=== PATIENT | female | born 1950 | race Caucasian/White ===

== ENCOUNTER → 2016-11-13 | Outpatient (REF) | payer MEDICARE, MEDICAID ==
[~2016-11-13] MED LIST: ACET500C PO; ALLE25CA OR; ARTHROTEC OR; BIOT50004 PO; BIOTINE PO; CETI10TA PO; CITRTAB14 PO; CLOBEX TOP; CRES20TA OR; HYDROCODONE PO; LIDO5DIS TOP; LOVE0.8I SC; METO25TA2 PO; MULTCAP PO; NAPR500T OR; NAPR500T81; OMEP20TA7 OR; PRIL20CA9 PO; TRAM50TA2 OR; TRAM50TA2 PO; VITA200015 PO; VITA500T OR; VITA500T3 PO; XARE20TA PO
[2016-11-13 16:42] LABS: BASO # 0.2 K/mm3 (0.0-0.2); BASO % 1.8 % (0.0-1.0); EOS # 0.1 K/mm3 (0.0-0.50); EOS % 0.9 % (0.0-3.0); LARGE UNSTAINED CELL # 0.2 K/mm3 (0.0-0.4); LARGE UNSTAINED CELL % 2.4 % (0.0-4.0); LYMPH # 2.6 K/mm3 (1.5-4.5); LYMPH % 28.4 % (24.0-44.0); MEAN CORPUSCULAR HEMOGLOBIN 31.7 pg (27.0-33.0); MEAN CORPUSCULAR HGB CONC 33.3 g/dl (32.0-36.5); MEAN CORPUSCULAR VOLUME 95.1 fl (80.0-96.0); MONO # 0.5 K/mm3 (0.0-0.8); MONO % 5.8 % (0.0-5.0); NEUTROPHILS # 5.2 K/mm3 (1.8-7.7); NEUTROPHILS % 60.8 % (36.0-66.0); PLATELET COUNT, AUTOMATED 247 k/mm3 (150-450); RED CELL DISTRIBUTION WIDTH 12.7 % (11.5-14.5); WHITE BLOOD COUNT 8.5 K/mm3 (4.0-10.0)
[2016-11-13 16:48] LABS: ALT/SGPT 21 U/L (12-78); CREATININE FOR GFR 0.77 MG/DL (0.55-1.02); GLOMERULAR FILTRATION RATE > 60.0 (>45)
[2016-11-13 18:30] LABS: ERYTHROCYTE SEDIMENTATION RATE 16 mm/hr (0-30)
== END ==
LOC: M LABDRWSH 16:06
PROVIDERS: ATTEND Internal Medicine Rheumatology
DX: M35.9 Systemic involvement of connective tissue, unspecified (principal); Z51.81 Encounter for therapeutic drug level monitoring; Z79.899 Other long term (current) drug therapy

== ENCOUNTER → 2016-11-13 | Outpatient (CLI) | payer MEDICARE, MEDICAID ==
[~2016-11-13] MED LIST changes: +PRIL20CA PO; -PRIL20CA9 PO
== END ==
LOC: M SFHCSACK 10:27
PROVIDERS: ATTEND Internal Medicine Rheumatology
DX: M35.9 Systemic involvement of connective tissue, unspecified (principal); Z79.899 Other long term (current) drug therapy

== ENCOUNTER → 2017-04-05 | Outpatient (CLI) | payer MEDICARE, MEDICAID ==
[~2017-04-05] MED LIST changes: -PRIL20CA PO; +PRIL20CA9 PO
--- NOTE | 2017-04-26 02:58 | ECWPNPC ---
PATIENT NAME: MARVIN JOHNSON : 1950 GENDER: FEMALE VISIT DATE: 04/05/2017 DISCHARGE DATE: 04/05/17 1043 VISIT LOCKED DATE TIME: PHYSICIAN: OTILIO STEPHENS RESOURCE: OTILIO STEPHENS REASON FOR APPOINTMENT 1. FOLLOWUP-HANDS/SHOULDERS HISTORY OF PRESENT ILLNESS HISTORY OF PRESENT ILLNESS: PAIN THE PATIENT DESCRIBES THE PAIN... FALL RISK SCREENING: SCREENING :NO FALLS IN THE PAST YEAR TODAY'S VISIT: NOTES: RATES PAIN TODAY 4/10. NOTES INCREASED LOCKING AND PAIN IN JOINTS OF THE HANDS - HAD RECENT INJECTIONS TO BOTH HANDS AT ORTHOPEDICS. NOTES SOME TENDERNESS AND STIFFNESS OVER THE NECK.. CURRENT MEDICATIONS TAKING ACETAMINOPHEN 500 MG CAPSULE 1 CAPSULE NEEDED ORALLY EVERY 6 HRS TAKING CITRACAL CALCIUM+D 600-40-500 MG-MG-UNIT TABLET EXTENDED RELEASE 24 HOUR 1 TABLET ORALLY TWICE A DAY TAKING VITAMIN D 2000 UNIT CAPSULE 1 CAP(S) ORALLY DAILY TAKING BIOTIN 62901 MCG CAPSULE 1 CAPSULE ORALLY ONCE A DAY TAKING ONE DAILY FOR WOMEN 50+ ADV - TABLET 1 TABLET ORALLY ONCE A DAY TAKING B-12 500 MG TABLET 1 TABLET ORALLY ONCE A DAY TAKING XARELTO 20 MG TABLET 1 TABLET ORALLY ONCE A DAY TAKING METOPROLOL SUCCINATE 25 MG TABLET EXTENDED RELEASE DIRECTED ORALLY DAILY TAKING ZYRTEC ALLERGY 10 MG TABLET 1 TABLET ORALLY ONCE A DAY NEEDED TAKING OMEPRAZOLE 20 MG CAPSULE DELAYED RELEASE 1 CAPSULE ORALLY ONCE A DAY TAKING TRAMADOL HCL 50 MG TABLET 1 TABLET NEEDED ORALLY EVERY 6 HRS PRN PAIN MDD=4 TAKING BLACK COHOSH 40 MG CAPSULE ORALLY NOT-TAKING CUSTOM DO NOT USE TRAMADOL 50 MG TABLET ONE TAB ORALLY EVERY 4-6 HOURS PRN PAIN NOT-TAKING MINOXIDIL FOR WOMEN 2 % SOLUTION 1 DROP TO AFFECTED AREA EXTERNALLY TWICE A DAY MEDICATION LIST REVIEWED AND RECONCILED WITH THE PATIENT PAST MEDICAL HISTORY RA (DR BONDS, PAIN CLINIC) DEGENERATIVE DISC DISEASE/ CHR NECK PAIN (ANGELO) HYPERLIPIDEMIA PSORIASIS, CONTROLLED MORBID OBESITY A FIB 2012 - DR FLYNN VIT D DEF B12 DEF H/O BRANDI DEP - AQUILES 10/19, FEV1 2.33. SCREENING COLONSCOPY PERFORMED 2014 ALLERGIES ENVIRONMENTAL REVIEW OF SYSTEMS CONSTITUTIONAL: ANY CHANGE IN YOUR MEDICAL CONDITION? NO . CHILLS NO . FEVER NO . INFECTION: DO YOU HAVE NEW INFECTIONS? NO . DO YOU HAVE HISTORY OF MRSA? NO . MUSCULOSKELETAL: ANY NEW PATTERNS OF PAIN OR NUMBNESS? NO . GASTROENTEROLOGY: ANY NEW CHANGE IN BOWEL CONTROL? NO . GENITOURINARY: ANY NEW CHANGE IN BLADDER CONTROL? NO . IS THERE A CHANCE YOU COULD BE ? NO . HEMATOLOGY/LYMPH: DO YOU TAKE ANY BLOOD THINNERS? (FOR EXAMPLE- COUMADIN, PLAVIX, AGGRENOX, PLATEL, PRADAXA, OR XARELTO) YES XARELTO . WHEN WAS YOUR LAST DOSE? DATE: TIME: . NEUROLOGY: HAVE YOU FALLEN IN THE PAST 6 MONTHS? NO . ANY NEW EXTREMITY NUMBNESS OR WEAKNESS? NO . CARDIOLOGY: DO YOU HAVE A PACEMAKER OR DEFIBRILLATOR? NO . RESPIRATORY: HAVE YOU BEEN SICK IN THE PAST WEEK? NO . FEVER NO . FLU LIKE SYMPTOMS? NO . COUGH NO . INTEGUMENTARY: DO YOU HAVE ANY RASHES OR OPEN SORES? NO . ALLERGIC/IMMUNO: ARE YOU ALLERGIC TO SHELLFISH OR IV DYE? NO . ANY NEW ALLERGIES? NO . PSYCHIATRIC: DO YOU HAVE THOUGHTS OF HURTING YOURSELF OR SOMEONE ELSE? NO . ARE YOU ABUSED, NEGLECTED, OR IN AN UNSAFE ENVIRONMENT? NO . ENDOCRINOLOGY: ARE YOU DIABETIC? NO . OTHER: DO YOU NEED ANY PRESCRIPTIONS? YES . IF YES, PLEASE LIST: ____TRAMADOL . ANY NEW PROBLEMS WITH YOUR MEDICATIONS? NO . WHEN DID YOU LAST EAT? ____ . WHEN DID YOU LAST DRINK? ____ . WHAT DID YOU LAST DRINK? ____ . NAME OF PERSON DRIVING YOU HOME? ____ . DO YOU HAVE ANY OTHER QUESTIONS OR CONCERNS NO . REVIEWED BY: PROVIDER: OTILIO CHUNG . VITAL SIGNS WT 185 LBS, HT 66 IN, BMI 29.86 INDEX, BP 149/75 MM HG, HR 64 /MIN, RR 16 /MIN, TEMP 97.7 F, OXYGEN SAT % 97%, SAFE IN ENV? (Y/N) YES, NA INITIALS SC 10:14, REVIEWED BY: WEN. EXAMINATION GENERAL EXAMINATION: PSYCHALERT , ORIENTED X 3 , APPROPRIATE MOOD AND AFFECT , SMILING AND TALKATIVE.. LUNGS:CLEAR TO AUSCULTATION BILATERALLY. HEART:HEART RATE IRREGULAR. MUSCULOSKELETAL:CONTINUES TO HAVE DIFFICULTY FULLY FLEXING THE FINGERS OF THE RIGHT HAND. NO SPECIFIC JOINT SWELLING TODAY. MILD TENDERNESS AND TRIGGER POINTS NOTED OVER THE CERVICAL SPINOUS PROCESSES ACROSS THE TRAPEZIUS MUSCLES BILATERALLY. . ASSESSMENTS RHEUMATOID ARTHRITIS, UNSPECIFIED - M06.9 (PRIMARY) CERVICAL FACET JOINT SYNDROME - M53.82 MYALGIA - M79.1 TREATMENT RHEUMATOID ARTHRITIS, UNSPECIFIED REFILL TRAMADOL HCL TABLET, 50 MG, 1 TABLET NEEDED, ORALLY, EVERY 6 HRS PRN PAIN MDD=4, 30 DAY(S), 120, REFILLS 5 NOTES: CONTINUE EXERCISES AND STRETCHES. CONTINUE CURRENT MEDS. CLINICAL NOTES: ISTOP REGISTRY REVIEWED AND DEMNOSTRATES COMPLLIANCE. BRINGS IN MEDICATIONS WHICH IS APPROPRIATE FOR WHAT WAS DISPENSED. RECENT URINE TOXICOLOGY REVIEWED. NO UNAUTHORIZED MEDICATIONS. NO ILLICIT SUBSTANCES AND PRESCRIBED MEDICATIONS WERE PRESENT. PROCEDURE CODES FA211 ESTABILISHED PATIENT [facility] CHARGE DISPOSITION & COMMUNICATION FOLLOW UP 6 MONTHS (REASON: JOINT PAIN) ELECTRONICALLY SIGNED BY ROGERIO CARTY ON 04/24/2017 AT 08:50 AM EDT DISCLAIMER : THIS IS A VISIT SUMMARY EXTRACTED FROM THE [employer] CHART. IT IS NOT A COPY OF THE [employer] PROGRESS NOTE. ELLIE
== END ==
LOC: M PAIN 10:00
PROVIDERS: ATTEND Nurse Practitioner Family
DX: M06.9 Rheumatoid arthritis, unspecified (principal); M53.82 Other specified dorsopathies, cervical region; M79.1 Myalgia; Z79.891 Long term (current) use of opiate analgesic; Z79.899 Other long term (current) drug therapy; J30.9 Allergic rhinitis, unspecified

== ENCOUNTER 2017-08-20 13:06 | Emergency (ER) | payer MEDICAID, MEDICARE ==
[~2017-08-20] VITALS: Ht 165.1 cm; Wt 81.8 kg
[2017-08-20] MEDS ORDERED: NS 1,000 ML IV ONE (14:00)
[2017-08-20] MEDS ORDERED: ONDANSETRON 4MG/2ML VIAL (J2405) IV ONE (14:00)
[2017-08-20 14:13] LABS: BASO # 0.1 10^3/uL (0.0-0.2); BASO % 0.5 % (0.0-1.0); EOS % 0.1 % (0.0-3.0); IMMATURE GRANULOCYTE % 0.3 % (0-0); LYMPH # 1.6 10^3/uL (1.5-4.5); LYMPH % 15.5 % (24.0-44.0); MEAN CORPUSCULAR HEMOGLOBIN 30.9 pg (27.0-33.0); MEAN CORPUSCULAR HGB CONC 32.7 g/dl (32.0-36.5); MEAN CORPUSCULAR VOLUME 94.5 fl (80.0-96.0); MONO # 0.5 10^3/uL (0.0-0.8); NEUTROPHILS % 78.6 % (36.0-66.0); PLATELET COUNT, AUTOMATED 255 10^3/uL (150-450); RED CELL DISTRIBUTION WIDTH 12.7 % (11.5-14.5); WHITE BLOOD COUNT 10.2 10^3/uL (4.0-10.0)
[2017-08-20 14:25] LABS: ANION GAP 9 MEQ/L (8-16); BLOOD UREA NITROGEN 8 MG/DL (7-18); CALCIUM LEVEL 9.1 MG/DL (8.8-10.2); CARBON DIOXIDE LEVEL 25 MEQ/L (21-32); CHLORIDE LEVEL 105 MEQ/L (98-107); GLOMERULAR FILTRATION RATE > 60.0 (>45); GLUCOSE, FASTING 108 MG/DL (80-110); MAGNESIUM LEVEL 1.9 MG/DL (1.8-2.4); POTASSIUM SERUM 4.2 MEQ/L (3.5-5.1); SODIUM LEVEL 139 MEQ/L (136-145)
[2017-08-20] MEDS ORDERED: ZOFR4TAB3 PO (16:18)
[2017-08-20 16:38] VITALS: BP 177/82
--- NOTE | 2017-08-20 19:15 | ECGEPIP ---
Stationary ECG Study [facility] - ED Test Date: 2017-08-20 Pat Name: MARVIN JOHNSON Department: Room: - Gender: F Firmware Developer: ALOK : 1950 Requested By: Yoseph Murrell Order Number: [id number] Reading MD: Yoseph Corea Measurements Intervals [place] Rate: 70 P: [place]: 0 QRS: 5 QRSD: 89 T: 5 QT: 385 QTc: 418 Interpretive Statements ATRIAL FIBRILLATION RHYTHM CHANGE COMPARED TO 08/05/13 Electronically Signed On 08-20-2017 19:14:46 EDT by Yoseph Corea
[2017-08-30] MEDS ORDERED: TRAM50TA2 PO (18:20)
[2017-08-30] MEDS ORDERED: VITMTA PO (18:20)
[2017-08-30] MEDS ORDERED: ONDA4TAB5 PO (18:20)
[2017-08-30] MEDS ORDERED: XARE20TA PO (18:20)
[2017-09-02] MEDS ORDERED: METO1TAB32 PO (12:59)
[2017-09-03] MEDS ORDERED: VITA10002 PO (10:25)
[2017-09-03] MEDS ORDERED: CALCTAB68 PO (10:25)
[2017-09-03] MEDS ORDERED: METO1TAB32 PO (10:25)
== END 2017-08-20 16:39 | disposition home or self-care (01) ==
LOC: M ED 13:06
DX: R55 Syncope and collapse (principal); E86.0 Dehydration; I48.91 Unspecified atrial fibrillation
CPT/HCPCS: 80048; 83735; 85025; 93005; 93041; 94760; 96361; 96374; 99284; J2405

== ENCOUNTER → 2017-09-24 | Outpatient (CLI) | payer MEDICARE, MEDICAID ==
[~2017-09-24] MED LIST changes: +CALCTAB68 PO; +METO1TAB32 PO; +ONDA4TAB5 PO; +VITA10002 PO; +VITMTA PO; +ZOFR4TAB3 PO
[2017-09-24 15:31] LABS: ALBUMIN 3.7 GM/DL (3.2-5.2); ALBUMIN/GLOBULIN RATIO 1.16 (1.00-1.93); ALKALINE PHOSPHATASE 89 U/L (45-117); ALT/SGPT 28 U/L (12-78); ANION GAP 6 MEQ/L (8-16); AST/SGOT 25 U/L (7-37); BILIRUBIN,TOTAL 0.7 MG/DL (0.2-1.0); BLOOD UREA NITROGEN 8 MG/DL (7-18); CALCIUM LEVEL 9.5 MG/DL (8.8-10.2); CARBON DIOXIDE LEVEL 30 MEQ/L (21-32); CHLORIDE LEVEL 105 MEQ/L (98-107); CHOLESTEROL LEVEL 225 MG/DL (<200); CREATININE FOR GFR 0.76 MG/DL (0.55-1.02); GLOMERULAR FILTRATION RATE > 60.0 (>45); GLUCOSE, FASTING 106 MG/DL (80-110); POTASSIUM SERUM 4.7 MEQ/L (3.5-5.1); SODIUM LEVEL 141 MEQ/L (136-145); TOTAL PROTEIN 6.9 GM/DL (6.4-8.2); TRIGLYCERIDES LEVEL 115 MG/DL (<150)
== END ==
LOC: M SFHCSACK 08:11
PROVIDERS: ATTEND Nurse Practitioner Family
DX: E78.4 Other hyperlipidemia (principal)

== ENCOUNTER → 2017-10-15 | Outpatient (CLI) | payer MEDICARE, MEDICAID | LOC: M PAIN 10:00 | DX: M06.9 Rheumatoid arthritis, unspecified (principal); M53.82 Other specified dorsopathies, cervical region; M79.1 Myalgia; E78.5 Hyperlipidemia, unspecified; I48.2 Chronic atrial fibrillation; Z79.891 Long term (current) use of opiate analgesic; Z79.899 Other long term (current) drug therapy; Z87.891 Personal history of nicotine dependence; J30.2 Other seasonal allergic rhinitis; Z98.84 Bariatric surgery status; Z95.0 Presence of cardiac pacemaker | CPT/HCPCS: G0463 ==

== ENCOUNTER → 2017-12-04 | Outpatient (CLI) | payer MEDICARE, MEDICAID | LOC: M WHC 10:14 | DX: Z12.31 Encounter for screening mammogram for malignant neoplasm of breast (principal); Z78.0 Asymptomatic menopausal state | CPT/HCPCS: 77067 ==

== ENCOUNTER → 2018-04-08 | Outpatient (CLI) | payer MEDICARE | LOC: M PAIN 09:00 | DX: M06.9 Rheumatoid arthritis, unspecified (principal); M53.82 Other specified dorsopathies, cervical region; M79.1 Myalgia; E11.9 Type 2 diabetes mellitus without complications; E78.5 Hyperlipidemia, unspecified; L40.9 Psoriasis, unspecified; I48.91 Unspecified atrial fibrillation; J30.89 Other allergic rhinitis; E66.9 Obesity, unspecified; Z68.30 Body mass index [BMI] 30.0-30.9, adult; Z79.01 Long term (current) use of anticoagulants; Z79.899 Other long term (current) drug therapy; Z95.0 Presence of cardiac pacemaker; Z87.891 Personal history of nicotine dependence; Z98.84 Bariatric surgery status | CPT/HCPCS: G0463 ==

== ENCOUNTER → 2018-09-20 | Outpatient (REF) | payer MEDICARE ==
[2018-09-20 15:27] LABS: HEMATOCRIT 38.9 % (36.0-47.0); HEMOGLOBIN 12.5 g/dl (12.0-15.5); MEAN CORPUSCULAR HEMOGLOBIN 29.9 pg (27.0-33.0); MEAN CORPUSCULAR HGB CONC 32.1 g/dl (32.0-36.5); MEAN CORPUSCULAR VOLUME 93.1 fl (80.0-96.0); PLATELET COUNT, AUTOMATED 317 10^3/uL (150-450); RED BLOOD COUNT 4.18 10^6/uL (4.00-5.40); RED CELL DISTRIBUTION WIDTH 12.8 % (11.5-14.5); WHITE BLOOD COUNT 6.2 10^3/uL (4.0-10.0)
[2018-09-20 15:33] LABS: ALBUMIN 3.6 GM/DL (3.2-5.2); ALBUMIN/GLOBULIN RATIO 1.16 (1.00-1.93); ALKALINE PHOSPHATASE 83 U/L (45-117); ALT/SGPT 18 U/L (12-78); ANION GAP 6 MEQ/L (8-16); AST/SGOT 16 U/L (7-37); BILIRUBIN,TOTAL 0.5 MG/DL (0.2-1.0); BLOOD UREA NITROGEN 7 MG/DL (7-18); CALCIUM LEVEL 8.8 MG/DL (8.8-10.2); CARBON DIOXIDE LEVEL 28 MEQ/L (21-32); CHLORIDE LEVEL 109 MEQ/L (98-107); CHOLESTEROL LEVEL 178 MG/DL (<200); CHOLESTEROL RISK RATIO 2.579 (<5); CREATININE FOR GFR 0.69 MG/DL (0.55-1.30); GLOMERULAR FILTRATION RATE > 60.0 (>45); GLUCOSE, FASTING 93 MG/DL (70-100); HDL CHOLESTEROL 69 MG/DL (>40); LDL CHOLESTEROL 88 MG/DL (<100); NON-HDL-C 109 MG/DL; POTASSIUM SERUM 4.5 MEQ/L (3.5-5.1); SODIUM LEVEL 143 MEQ/L (136-145); TOTAL PROTEIN 6.7 GM/DL (6.4-8.2); TRIGLYCERIDES LEVEL 107 MG/DL (<150)
[2018-09-20 15:36] LABS: TOTAL 25(OH) VITAMIN D 32.3 NG/ML (30.0-100.0); VITAMIN B12 LEVEL 394 PG/ML (247-911)
== END ==
LOC: M SFHCSACK 08:15
DX: I48.2 Chronic atrial fibrillation (principal); E78.49 Other hyperlipidemia; E55.9 Vitamin D deficiency, unspecified; Z98.84 Bariatric surgery status
CPT/HCPCS: 82607

== ENCOUNTER → 2018-10-03 | Outpatient (CLI) | payer MEDICARE | LOC: M PAIN 09:15 | DX: M06.9 Rheumatoid arthritis, unspecified (principal); G89.29 Other chronic pain; I48.91 Unspecified atrial fibrillation; E78.5 Hyperlipidemia, unspecified; L40.9 Psoriasis, unspecified; Z79.01 Long term (current) use of anticoagulants; Z79.899 Other long term (current) drug therapy; Z87.891 Personal history of nicotine dependence; Z95.0 Presence of cardiac pacemaker; Z98.84 Bariatric surgery status | CPT/HCPCS: G0463 ==

== ENCOUNTER → 2019-02-13 | Outpatient (CLI) | payer MEDICAID, MEDICARE ==
[~2019-02-13] MED LIST changes: +ZOFR4TAB14 PO; -ZOFR4TAB3 PO
--- NOTE | 2019-02-13 11:27 | REPMRS ---
Patient History The patient states she had a clinical breast exam in 02/2019. No known family history of cancer. Digital Woman Screen Mammo: February 13, 2019 - Exam #: [id number] Bilateral CC and MLO view(s) were taken. Technologist: Claudia Birmingham, Technologist Prior study comparison: December 04, 2017, digital woman screen mammo performed at [facility]. July 13, 2016, digital woman screen mammo performed at [facility]. June 14, 2015, digital woman screen mammo performed at [facility]. FINDINGS: There are scattered fibroglandular densities. A pacemaker power plant overlies the left axilla on the left MLO view. There has been no change in the appearance of the mammogram from the prior studies. There is a mild amount of scattered fibroglandular density which is fairly symmetric. There is no interval development of dominant mass, architectural distortion, or clustered microcalcification suggestive of malignancy. 3-D tomosynthesis shows no additional findings. Assessment: BI-RADS/ACR category 2 mammogram. Benign Findings. Recommendation Routine screening mammogram of both breasts in 1 year (for women over age 40). This patient's Lifetime Breast Cancer RIsk is estimated at 5.0 %. This mammogram was interpreted with the aid of an FDA-approved computer-aided dectection system. Electronically Signed By: David Garcia MD 02/13/19 [id number]
== END ==
LOC: M WHC 09:44
PROVIDERS: ATTEND Nurse Practitioner Women's Health
DX: Z01.419 Encounter for gynecological examination (general) (routine) without abnormal findings (principal); Z12.31 Encounter for screening mammogram for malignant neoplasm of breast; Z95.0 Presence of cardiac pacemaker
CPT/HCPCS: 77063; 77067; G0101

== ENCOUNTER → 2019-02-26 | Outpatient (CLI) | payer MEDICARE ==
--- NOTE | 2019-03-17 00:56 | ECWPNPC ---
PATIENT NAME: MARVIN JOHNSON : 1950 GENDER: FEMALE VISIT DATE: 02/26/2019 DISCHARGE DATE: 02/26/19 0959 VISIT LOCKED DATE TIME: PHYSICIAN: LAURIE CASE MD RESOURCE: LAURIE CASE MD REASON FOR APPOINTMENT 1. MULTI BODY PAIN HISTORY OF PRESENT ILLNESS HISTORY OF PRESENT ILLNESS: PAIN THE PATIENT DESCRIBES THE PAIN... 68 YEAR OLD MALE PATIENT WITH A HISTORY OF CHRONIC MULTIPLE BODY PAIN. THE PATIENT DESCRIBES THE PAIN SORE, BURNING, SHOOTING, AND CONTINUOUS WITH A PAIN SCORE OF 6-8/10 DEPENDING ON PHYSICAL ACTIVITY. THE PATIENT SAYS THE PAIN IS FELT ESPECIALLY IN HER HANDS AND OVER SEVERAL JOINTS IN HER BODY. THE PATIENT REPORTS SHE HAS A HISTORY OF RHEUMATOID ARTHRITIS. THE PATIENT SAYS SHE TAKES TRAMADOL TWO TIMES PER DAY TO AID WITH HER PAIN. PATIENT DENIES UNEXPLAINABLE WEIGHT LOSS, FEVER, CHILLS, NEW CHANGES ON HER URINARY OR BOWEL CONTROL. FALL RISK SCREENING: SCREENING :NO FALLS REPORTED IN THE LAST YEAR CURRENT MEDICATIONS TAKING OMEPRAZOLE 20 MG CAPSULE DELAYED RELEASE 1 CAPSULE ORALLY ONCE A DAY NEEDED, NOTES: OTC TAKING METOPROLOL SUCCINATE 25 MG TABLET EXTENDED RELEASE DIRECTED ORALLY DAILY TAKING XARELTO 20 MG TABLET 1 TABLET ORALLY ONCE A DAY TAKING TRAMADOL HCL 50 MG TABLET 1 TABLET NEEDED ORALLY EVERY 6 HRS PRN PAIN MDD=4 UNKNOWN SHINGRIX 50 MCG SUSPENSION RECONSTITUTED DIRECTED INTRAMUSCULAR ONCE, REPEAT 2-6 MONTHS, NOTES: NOT YET MEDICATION LIST REVIEWED AND RECONCILED WITH THE PATIENT PAST MEDICAL HISTORY RA (DR BONDS, PAIN CLINIC) DEGENERATIVE DISC DISEASE/ CHR NECK PAIN (WALKER) HYPERLIPIDEMIA PSORIASIS, CONTROLLED MORBID OBESITY VIT D DEF B12 DEF H/O BRANDI DEP - AQUILES 10/19, FEV1 2.33. SCREENING COLONSCOPY PERFORMED 2014 [employer] SINGLE CHAMBER PACEMAKER 09/01/17 ATRIAL FIB: DX 04/03/13, CARDIOVERSION 08/04/13, AFIB RETURNED 3 DAYS LATER. ON XARELTO PACEMAKER: BIOTRONIK SINGLE CHAMBER PACEMAKER IMPLANTED 08/2017 FOR SICK SINUS SYNDROME ECHO 2012: LVEF 60-65%, MILD LEFT VENTRICULAR HYPERTROPHY, MODERATE LEFT ATRIAL ENLARGEMENT, NORMAL PULMONARY ARTERY PRESSURE ECHO 08/2017: LVEF 65-70%, NO VALVULAR DISEASE, NORMAL CVP ALLERGIES ENVIRONMENTAL SURGICAL HISTORY SHOULDER SURGERY X 2 CARPAL TUNNEL RELEASE/CEE. D&C 1980S GASTRIC BYPASS 06/2013 PACEMAKER 09/01/17 COLONOSCOPY; REPEAT 10 YEARS 2014 FAMILY HISTORY FATHER: , CIRRHOSIS MOTHER: , HEART DISEASE, DM SIBLINGS: ALIVE, DM, KIDNEY CANCER 2 BROTHER(S) , 3 SISTER(S) - HEALTHY. BROTHER- HEART DISEASE\\\\NBROTHER -BLEEDING ULCER. SOCIAL HISTORY GENERAL: TOBACCO USE ARE YOU A:FORMER SMOKER HOW LONG HAS IT BEEN SINCE YOU LAST SMOKED?> 10 YEARS HIV / HEP-C SCREENING HIV TEST OFFERED TO PATIENT:YES DATE OFFERED:02/13/2019 TEST ACCEPTED:NO HEP-C TEST OFFERED TO PATIENT:YES DATE OFFERED:02/13/2019 REASON:PATIENT DECLINED TEST ACCEPTED:NO REASON:PATIENT DECLINED BROCHURE PROVIDED TO PATIENTNO OTHERS AT HOME: NONE. EDUCATION LEVEL OF EDUCATION:HIGH SCHOOL DIET: S/P GASTRIC BYPASS. LANGUAGE LANGUAGES SPOKEN:ESTONIAN DOMESTIC VIOLENCE DO YOU FEEL SAFE IN YOUR ENVIRONMENT?YES BMI CARE GOAL FOLLOW-UP ABOVE NORMAL BMI FOLLOW-UPGIVING ENCOURAGEMENT TO EXERCISE RECREATIONAL DRUG USE DRUG USE?NO EXERCISE: EXERCISES FIVE DAYS A WEEK AT [employer], [place], [place] [place]. LEARNING BARRIERS / SPECIAL NEEDS CHANGE FROM LAST VISIT?NO BARRIERS TO LEARNING?NO HEARING IMPAIRED?NO VISION IMPAIRED?YES COGNITIVELY IMPAIRED?NO :CORRECTIVE LENSES READINESS TO LEARN?YES LEARNING PREFERENCES?NO LEARNING CAPABILITIES PRESENT?YES EMOTIONAL BARRIERS?NO SPECIAL DEVICES?NO HEALTH AND SAFETY REPRESENTATIVE NEEDED?NO LUNG CANCER SCREENING SMOKING STATUS:FORMER SMOKER IS THE PATIENT BETWEEN THE AGE OF 57 AND 79?YES HAVE YOU QUIT SMOKING WITHIN THE PAST 15 YEARS?NO QUIT SMOKING 1985 PAIN CLINIC PFS, CLERGY, PUBLIC HEALTH REFERRALS HAS THE PATIENT BEEN EDUCATED REGARDING HIS/HER PLAN OF CARE?YES HAS THE PATIENT BEEN EDUCATED REGARDING PAIN, THE RISK FOR PAIN, THE IMPORTANCE OF EFFECTIVE PAIN MANAGEMENT, AND THE PAIN ASSESSMENT PROCESS?YES LATEX QUESTIONNAIRE LATEX ALLERGY : HAVE YOU EVER DEVELOPED ANY TYPE OF REACTION AFTER HANDLING LATEX PRODUCTS SUCH RUBBER GLOVES, CONDOMS, DIAPHRAGMS, BALLOONS, SOCKS, OR UNDERWEAR?NO LATEX ALLERGY : HAVE YOU EVER DEVELOPED ANY TYPE OF REACTION DURING OR AFTER DENTAL APPOINTMENT, VAGINAL/RECTAL EXAMINATION, SURGICAL PROCEDURE, OR ANY OTHER EXPOSURE?NO DATE ASKED : 02/13/2019 LATEX RISK : HAVE YOU EVER HAD ANY DIFFICULTY BREATHING OR HIVES AFTER EATING OR HANDLING ANY FRUITS, OR VEGETABLES; SUCH KIWI, BANANAS, STONE FRUITS, OR CHESTNUTSNO LATEX RISK : DO YOU HAVE A PREVIOUS PERSONAL HISTORY OF MORE THAN NINE SURGERIES, SPINA BIFIDA, OR REPEATED CATHERTIZATIONS? NO LATEX RISK : ARE YOU FREQUENTLY EXPOSED TO LATEX PRODUCTS IN YOUR OCCUPATION?NO CAFFEINE 2-5/DAY. ADVANCE DIRECTIVE ADVANCE DIRECTIVE DISCUSSED WITH PATIENT:YES OTILIO ARAUZ TAOIST TAOIST NO CHEONDOISM BELIEFS THAT WOULD IMPACT HEALTH CARE. MARITAL STATUS: SINGLE. ALCOHOL SCREENING DID YOU HAVE A DRINK CONTAINING ALCOHOL IN THE PAST YEAR?NO POINTS0 INTERPRETATIONNEGATIVE OCCUPATION: RETIRED. SEXUAL HX HAD SEX IN THE LAST 12 MONTHS (VAGINAL, ORAL, OR ANAL)?NO HAVE YOU EVER HAD AN STD?NO HOSPITALIZATION/MAJOR DIAGNOSTIC PROCEDURE SHOULDER SURGERY 07/12 [facility] GASTRIC SURGERY 06/2013 AFIB 08/30/17-09/02/17 PACEMAKER 09/03/17-09/04/17 REVIEW OF SYSTEMS REVIEWED BY: PROVIDER: LAURIE CASE MD . CONSTITUTIONAL: ANY CHANGE IN YOUR MEDICAL CONDITION? NO . CHILLS NO . FEVER NO . INFECTION: DO YOU HAVE NEW INFECTIONS? NO . DO YOU HAVE HISTORY OF MRSA? NO . MUSCULOSKELETAL: ANY NEW PATTERNS OF PAIN OR NUMBNESS? YES INCREASED NUMBNESS AND PAIN IN HANDS . GASTROENTEROLOGY: ANY NEW CHANGE IN BOWEL CONTROL? NO . GENITOURINARY: ANY NEW CHANGE IN BLADDER CONTROL? NO . IS THERE A CHANCE YOU COULD BE ? NO . HEMATOLOGY/LYMPH: DO YOU TAKE ANY BLOOD THINNERS? (FOR EXAMPLE- COUMADIN, PLAVIX, AGGRENOX, PLATEL, PRADAXA, OR XARELTO) YES . WHEN WAS YOUR LAST DOSE? DATE: TIME: . NEUROLOGY: HAVE YOU FALLEN IN THE PAST 12 MONTHS? NO . ANY NEW EXTREMITY NUMBNESS OR WEAKNESS? NO . CARDIOLOGY: DO YOU HAVE A PACEMAKER OR DEFIBRILLATOR? YES . RESPIRATORY: HAVE YOU BEEN SICK IN THE PAST WEEK? NO . FEVER NO . FLU LIKE SYMPTOMS? NO . COUGH NO . INTEGUMENTARY: DO YOU HAVE ANY RASHES OR OPEN SORES? NO . ALLERGIC/IMMUNO: ARE YOU ALLERGIC TO IV DYE? NO . ANY NEW ALLERGIES? NO . PSYCHIATRIC: DO YOU HAVE THOUGHTS OF HURTING YOURSELF OR SOMEONE ELSE? NO . ARE YOU ABUSED, NEGLECTED, OR IN AN UNSAFE ENVIRONMENT? NO . ENDOCRINOLOGY: ARE YOU DIABETIC? NO . OTHER: DO YOU NEED ANY PRESCRIPTIONS? YES TRASMADOL . IF YES, PLEASE LIST: ____ . ANY NEW PROBLEMS WITH YOUR MEDICATIONS? NO . WHEN DID YOU LAST EAT? ____ . WHEN DID YOU LAST DRINK? ____ . WHAT DID YOU LAST DRINK? ____ . NAME OF PERSON DRIVING YOU HOME? ____ . DO YOU HAVE ANY OTHER QUESTIONS OR CONCERNS NO . VITAL SIGNS WT 162.2 LBS, HT 66 IN, BMI 26.18 INDEX, BP 130/69 MM HG, HR 77 /MIN, RR 16 /MIN, TEMP 97.6 F, OXYGEN SAT % 99%, NA INITIALS SC 08:59. EXAMINATION GENERAL EXAMINATION: PATIENT IS ALERT O X 3 AND COOPERATIVE. TENDERNESS OVER HANDS AND IN METACARPAL JOINTS. TENDERNESS OVER THE ELBOWS. ASSESSMENTS PAIN OF MULTIPLE SITES - R52 (PRIMARY) ARTHROPATHY - M12.9 PAIN IN JOINT, MULTIPLE SITES - M25.50 HISTORY OF ARTHRITIS. TREATMENT PAIN OF MULTIPLE SITES CLINICAL NOTES: WE DISCUSSED SEVERAL ISSUES WITH MS. JOHNSON'S PAIN MANAGEMENT CASE. I WOULD LIKE TO REFER THE PATIENT TO A CORE MEASURES ABSTRACTOR FOR FURTHER EVALUATION. THE PATIENT WILL CONTINUE TRAMADOL. ISTOP _# [id number] WAS REVIEWED TODAY. THE PATIENT WILL FOLLOW UP WITH A NURSE PRACTITIONER. INSTRUCTIONS WERE GIVEN, QUESTIONS WERE ANSWERED, PATIENT REPORTS UNDERSTANDING AND AGREES WITH THE PLAN. I, MATTY KHOURY, DOCUMENTED THE ABOVE INFORMATION ACTING A SCRIBE FOR DR. CASE. I HAVE REVIEWED THE ABOVE DOCUMENT, WRITTEN BY MATTY IBANEZ AND I VERIFY THAT IT IS ACCURATE. . ARTHROPATHY REFILL TRAMADOL HCL TABLET, 50 MG, 1 TABLET NEEDED, ORALLY, EVERY 12 HRS PRN PAIN MDD=2, 30 DAY(S), 60, REFILLS 1 PROCEDURE CODES FA211 ESTABILISHED PATIENT [facility]AC[facility] CHARGE G8427 CURRENT MEDS W/DOSAGES DOCUMENTED G8730 PAIN ASSESS POS TOOL F/U PLAN DOC DISPOSITION & COMMUNICATION FOLLOW UP 3 MONTHS ELECTRONICALLY SIGNED BY LAURIE CASE MD, MD ON 03/16/2019 AT 03:25 PM EDT DISCLAIMER : THIS IS A VISIT SUMMARY EXTRACTED FROM THE [facility] CHART. IT IS NOT A COPY OF THE [facility] PROGRESS NOTE. MTDD
== END ==
LOC: M PAIN 09:00
PROVIDERS: ATTEND Anesthesiology
DX: M12.9 Arthropathy, unspecified (principal); M25.50 Pain in unspecified joint; G89.29 Other chronic pain; E78.5 Hyperlipidemia, unspecified; L40.9 Psoriasis, unspecified; Z95.0 Presence of cardiac pacemaker; Z79.01 Long term (current) use of anticoagulants; Z79.899 Other long term (current) drug therapy; Z98.84 Bariatric surgery status; Z87.891 Personal history of nicotine dependence; Z86.79 Personal history of other diseases of the circulatory system

== ENCOUNTER 2019-03-24 11:39 | Inpatient (IN) | payer MEDICARE ==
[~2019-03-24] VITALS: Ht 167.6 cm; Wt 63.6 kg
[2019-03-24] MEDS ORDERED: NS 1,000 ML IV ONE (13:00)
[2019-03-24] MEDS: GASTROGRAFIN SOLUTION 30ML PO SCH ×2 (13:13→13:47)
[2019-03-24 13:18] LABS: BASO % 0.2 % (0.0-1.0); HEMOGLOBIN 13.3 g/dl (12.0-15.5); LYMPH # 1.4 10^3/uL (1.5-4.5); LYMPH % 8.8 % (24.0-44.0); MEAN CORPUSCULAR HEMOGLOBIN 26.6 pg (27.0-33.0); MEAN CORPUSCULAR HGB CONC 31.7 g/dl (32.0-36.5); MONO # 1.3 10^3/uL (0.0-0.8); MONO % 8.4 % (0.0-5.0); NEUTROPHILS # 12.9 10^3/uL (1.8-7.7); NEUTROPHILS % 82.2 % (36.0-66.0); PLATELET COUNT, AUTOMATED 333 10^3/uL (150-450); WHITE BLOOD COUNT 15.7 10^3/uL (4.0-10.0)
[2019-03-24 13:34] LABS: INR 1.22; PROTHROMBIN TIME 15.6 SECONDS (12.1-14.4)
[2019-03-24 13:35] LABS: PARTIAL THROMBOPLASTIN TIME 27.8 SECONDS (25.4-37.6)
[2019-03-24 13:55] LABS: ALBUMIN 3.5 GM/DL (3.2-5.2); ALT/SGPT 17 U/L (12-78); AMYLASE 21 U/L (25-115); BILIRUBIN,DIRECT 0.3 MG/DL (0.0-0.2); BILIRUBIN,TOTAL 1.5 MG/DL (0.2-1.0); BLOOD UREA NITROGEN 16 MG/DL (7-18); CARBON DIOXIDE LEVEL 26 MEQ/L (21-32); CHLORIDE LEVEL 104 MEQ/L (98-107); GLOMERULAR FILTRATION RATE > 60.0 (>45); GLUCOSE, FASTING 119 MG/DL (70-100); LIPASE 41 U/L (73-393); POTASSIUM SERUM 3.5 MEQ/L (3.5-5.1); SODIUM LEVEL 139 MEQ/L (136-145); TOTAL PROTEIN 7.8 GM/DL (6.4-8.2)
[2019-03-24] MEDS ORDERED: ISOVUE-370 76% 100ML VIAL (Q9967) As Ordered ONE (14:47)
[2019-03-24] MEDS ORDERED: PIPERACILLIN/TAZOBACTAM SOD 3.375 GM in D5W MINI-BAG PLUS 50 ML IV ONE (15:45)
--- NOTE | 2019-03-24 15:57 | REP ---
CT ABDOMEN AND PELVIS WITH ORAL AND IV CONTRAST: TECHNIQUE: Axial contrast enhanced images from the lung bases to the pubic symphysis using 100 mL Isovue 370 intravenous contrast material with multiplanar reformations. Visualized lung bases demonstrate no evidence of infiltrate. The liver, gallbladder, spleen, adrenals, and pancreas are unremarkable. There is no hydronephrosis. A couple of left renal cysts are present. There is no aneurysm of the abdominal aorta with scattered atherosclerotic calcifications. There is no adenopathy or free fluid. However, there are multiple foci of free air in the left upper quadrant beneath the diaphragm. Patient has had prior gastric bypass surgery. The proximal end of the jejunum appears thickened with mild streaky inflammatory change in the adjacent fat. I suspect the findings represent a perforated ulcer in the region of the gastrojejunal anastomosis. No other areas of bowel wall thickening are seen. The appendix is normal. There is no obstruction. I see no pelvic mass. Urinary bladder is mildly distended and grossly unremarkable. IMPRESSION: Multiple foci of free air in the left upper quadrant in the region of gastrojejunal anastomosis. Proximal end of the jejunum appears thickened with adjacent streaky inflammatory change in the surrounding fat. The findings suggest a perforated ulcer. No free fluid or fluid collection. Adrienne Child informed of these findings at the time of exam 3:20 p.m., 03/24/2019. Electronically Signed by Olegario Ross MD 03/24/2019 07:51 P
[2019-03-24] MEDS ORDERED: PRIL20TA2 PO (16:34)
--- NOTE | 2019-03-24 17:12 | HPEPDOC ---
General Surgery H&P Date of Admission March 24, 2019 Attending Physician: NELLIE DELGADO MD History and Physical CHIEF COMPLAINT: abdominal pain and vomiting x 3day HISTORY OF PRESENT ILLNESS: Patient presents to the ER with 3 day history of epigastric discomfort with multiple episodes of bilious emesis. She has a history of gastric bypass in 2012. She reports no previous problems with her gastric bypass though about a month or so ago she reports symptoms that she suspect was dumping. She has no prior history of ulcers. She does not smoke nor drink alcohol. Her past month has been feeling slightly off though no real epigastric discomfort up until last Sunday. She reports sharp discomfort over the epigastric area with slight radiation to the left side of her abdomen accompanied with nausea and multiple episodes of bilious vomiting. Patient not able to take oral foods well due to the nausea and pain. This gradually developed and worsened over the weekend. She denies any accompanying fevers or chills. ALLERGIES: Please see below. HOME MEDICATIONS: Please see below. PAST MEDICAL HISTORY: 1. gastric bypass status 2. sick sinus syndrome. 3. Atrial fibrillation S/P cardiac ablation 4. Hypertension 5. Rheumatoid arthritis 6. Chronic neck pain/joint pains PAST SURGICAL HISTORY: 1. Laparoscopic Gastric Bypass 2. pacemaker 3. Cardiac ablation 4. Left shoulder arthroscopy 5. Dilatation and curettage PERSONAL/SOCIAL HISTORY: Denies smoking, alcohol use, or recreational drug use. REVIEW OF SYSTEMS: GENERAL: Prior to last Sunday, she reports a vague abdominal discomfort though this is not centered at the epigastric area. Negative chills. Denies any unexplained weight loss. HEENT: Denies blurred vision and double vision. Denies ear symptoms. Denies hoarseness. NECK: Reports of chronic neck pain, shoulder pain, low back pain. CARDIOVASCULAR: Patient with pacemaker due to nursing component episode secondary to sick sinus syndrome. She denies any chest pains shortness of breath. MUSCULOSKELETAL: Reports history of premature arthritis, and pain, joint pain, shoulder pain and neck pain. SKIN: Denies rash. Denies jaundice NEUROLOGIC: Denies headache, stroke and transient ischemic attack. PSYCHIATRIC: Denies anxiety and depression. ENDOCRINE: Denies thyroid disease. HEMATOLOGY/ONCOLOGY: Denies any bleeding or clotting disorder. Patient is on Xarelto for atrial fibrillation HEART: Denies any chest pains, palpitations, paroxysmal dyspnea, orthopnea. PULMONARY: Denies chronic cough, dyspnea and wheezing. GASTROINTESTINAL: See HPI. GENITOURINARY: Denies dysuria, frequency, hematuria and nocturia. ENDOCRINE: Denies polydipsia, polyphagia, polyuria, heat or cold intolerance. INFECTIOUS: Denies any recent upper respiratory tract infection, UTI, need for use of antibiotics. NUTRITION: Reports poor appetite PHYSICAL EXAMINATION: VITAL SIGNS: Please see below. GENERAL APPEARANCE: Patient is seen sitting up on the stretcher, mild discomfort. She does not appear in any acute distress.. HEENT: Mild pale palpebral conjunctiva. Lips appear mildly dry. CHEST: No chest wall abnormalities. Normal respiratory motion/effort. NECK: Supple. No thyromegaly. No lymphadenopathies. LUNGS: Lung sounds are clear to auscultation bilaterally. No wheezing appreciated. HEART: No chest wall abnormalities. Heart rate 80s and irregular rhythm with no murmurs. Pacemaker present in left anterior chest ABDOMEN: Abdomen is relatively flat, loose skin and subcutaneous tissue from chronic weight loss. She had previous port site incisions which are well-healed with no obvious herniations. She is mildly tender over the epigastric area and also at the left lower quadrant area but no noticeable guarding.. SKIN: Warm and dry. EXTREMITIES: Extremities have no deformities. No edema identified. NEUROLOGICAL: Awake, alert oriented. ANCILLARIES: . LABORATORY DATA: Please see below. MICROBIOLOGY: Please see below. IMAGING: CT scan of abdomen and pelvis Multiple foci of free air in the left upper quadrant in the region of gastrojejunal anastomosis. Proximal end of the jejunum appears thickened with adjacent streaky inflammatory change in the surrounding fat. The findings suggest a perforated ulcer. No free fluid or fluid collection. IMPRESSION AND PLAN: Perforated Viscus possible from perforated gastrojejunal ulcer sick sinus syndrome s/p pacemaker placement atrial fibrillation on anticoagulation Despite findings of pneumoperitoneum on CT abdominal examination despite showing tenderness over the epigastric area does not show any evidence of peritonitis. She does have leukocytosis of 15,000. She is afebrile. Her symptoms have been ongoing for about 3 days now which could be she perforated early in the course.she still remains symptomatic with multiple episodes of vomiting. Thus I think she still would benefit from abdominal exploration to determine extent of perforation at her gastrojejunal anastomosis from her gastric bypass and to control leakage if it is persistent. She did take her Xarelto yesterday which puts her at increased risk for intraoperative and perioperative bleeding. Though I did not think this can wait until the effects of the Xarelto has come off. Patient will be brought to the OR for abdominal exploration for findings of free intraperitoneal air suspected to be from perforation of a gastrojejunal ulcer from her gastric bypass. I discussed with the patient the details of the proposed procedure, the benefits of performing the procedure, the most common risks on doing the procedure. This may include elevated risks for bleeding especially with Xarelto still on board, risk of bowel injury, vascular injury, risk of infection and abscess or space- organ infection. Risk for narrowing of her gastrojejunal anastomosis, hernia formation. I have given her a chance to ask questions, voice out concerns. Patient has agreed to proceed She has been started on Zosyn 3.375 g IV preoperatively. I'll continue this perioperatively Vital Signs Vital Signs Date Time Temp Pulse Resp B/P (MAP) Pulse Ox O2 Delivery O2 Flow Rate FiO2 03/24/19 15:46 98.2 88 16 130/72 (91) 99 Room Air Laboratory Data Labs 24H Laboratory Tests 2 03/24/19 13:00: Immature Granulocyte % (Auto) 0.4, White Blood Count 15.7H, Red Blood Count 5.00, Hemoglobin 13.3, Hematocrit 42.0, Mean Corpuscular Volume 84.0, Mean Corpuscular Hemoglobin 26.6L, Mean Corpuscular Hemoglobin Concent 31.7L, Red Cell Distribution Width 15.5H, Platelet Count 333, Neutrophils (%) (Auto) 82.2H, Lymphocytes (%) (Auto) 8.8L, Monocytes (%) (Auto) 8.4H, Eosinophils (%) (Auto) 0.0, Basophils (%) (Auto) 0.2, Neutrophils # (Auto) 12.9H, Lymphocytes # (Auto) 1.4L, Monocytes # (Auto) 1.3H, Eosinophils # (Auto) 0.0, Basophils # (Auto) 0.0, Nucleated Red Blood Cells % (auto) 0.0, Prothrombin Time 15.6H, Prothromb Time International Ratio 1.22, Activated Partial Thromboplast Time 27.8, Anion Gap 9, Glomerular Filtration Rate > 60.0, Calcium Level 9.0, Aspartate Amino Transf (AST/SGOT) 18, Alanine Aminotransferase (ALT/SGPT) 17, Alkaline Phosphatase 83, Total Bilirubin 1.5H, Direct Bilirubin 0.3H, Total Protein 7.8, Albumin 3.5, Albumin/Globulin Ratio 0.81L, Amylase Level 21L, Lipase 41L 03/24/19 15:22: Urine Color YELLOW, Urine Appearance CLEAR, Urine pH 6.0, Urine Specific [place] >1.060H, Urine Protein 1+H, Urine Glucose (UA) NEGATIVE, Urine Ketones NEGATIVE, Urine Blood NEGATIVE, Urine Nitrite NEGATIVE, Urine Bilirubin NEGATIVE, Urine Urobilinogen 0.2, Urine Leukocyte Esterase 3+H, Urine WBC (Auto) 24H, Urine RBC (Auto) 7H, Urine Hyaline Casts (Auto) 0, Urine Bacteria (Auto) 1+H, Urine Squamous Epithelial Cells 9, Urine Sperm (Auto) CBC/BMP Laboratory Tests 03/24/19 13:00 Red Blood Count 5.00, Mean Corpuscular Volume 84.0, Mean Corpuscular Hemoglobin 26.6 L, Mean Corpuscular Hemoglobin Concent 31.7 L, Red Cell Distribution Width 15.5 H, Neutrophils (%) (Auto) 82.2 H, Lymphocytes (%) (Auto) 8.8 L, Monocytes (%) (Auto) 8.4 H, Eosinophils (%) (Auto) 0.0, Basophils (%) (Auto) 0.2, Neutrophils # (Auto) 12.9 H, Lymphocytes # (Auto) 1.4 L, Monocytes # (Auto) 1.3 H, Eosinophils # (Auto) 0.0, Basophils # (Auto) 0.0 Microbiology Microbiology 03/24/19 Urine Culture, Received Pending Home Medications Scheduled Metoprolol Succinate (Metoprolol Succinate) 25 Mg Tab, 25 MG PO DAILY, (Reported) Rivaroxaban (Xarelto) 20 Mg Tab, 20 MG PO QHS, (Reported) Scheduled PRN Omeprazole Magnesium (Prilosec Otc) 20 Mg Tablet.dr, 20 MG PO DAILY PRN for ACID REFLUX, (Reported) Tramadol HCl (Tramadol HCl) 50 Mg Tab, 50 MG PO BID PRN for PAIN, (Reported) Allergies Coded Allergies: No Known Allergies (Unverified , 03/24/19) A-FIB/CHADSVASC A-FIB History Current/History of A-Fib/PAF?: Yes Current Oral Anticoagulant The: Yes NELLIE DELGADO MD March 24, 2019 17:12
[2019-03-24] MEDS ORDERED: BUPIVACAINE HCL 0.25% 30 ML VIAL As Ordered ONE (17:32)
[2019-03-24] MEDS ORDERED: LIDOCAINE 1% SDV INJ 30 ML VIAL As Ordered ONE (17:32)
[2019-03-24] MEDS ORDERED: LIDOCAINE 2% INJ 100 MG/5 ML SDV (FOR ANES.) As Ordered ONE (17:34)
[2019-03-24] MEDS ORDERED: fentaNYL 250 MCG/5 ML INJECTION (J3010) As Ordered ONE (17:34)
[2019-03-24] MEDS ORDERED: ROCURONIUM BROMIDE 50 MG/5 ML VIAL As Ordered ONE (17:34)
[2019-03-24] MEDS ORDERED: PROPOFOL 200 MG/20 ML VIAL As Ordered ONE (17:34)
[2019-03-24] MEDS ORDERED: MIDAZOLAM INJ 2 MG/2 ML VIAL (J2250) As Ordered ONE (17:35)
[2019-03-24] MEDS ORDERED: PHENYLephrine HCL 500 MCG/5 ML (100MCG/ML) SYRINGE (J2370) As Ordered ONE (18:11)
[2019-03-24] MEDS ORDERED: ePHEDrine SULFATE 25 MG/5 ML(5MG/ML) SYRINGE As Ordered ONE ×2 (18:11→18:16)
[2019-03-24] MEDS ORDERED: BUPIVACAINE LIPOSOME/PF 1.3% 20ML VIAL (13.3MG/ML)(EXPAREL)(C9290 PER1MG) As Ordered ONE (18:37)
[2019-03-24] MEDS ORDERED: BUPIVACAINE HCL 0.25% 10 ML VIAL As Ordered ONE (18:37)
[2019-03-24] MEDS ORDERED: ONDANSETRON 4MG/2ML VIAL (J2405) As Ordered ONE (18:43)
[2019-03-24] MEDS ORDERED: dexameTHASONE 4 MG/ML 1ML VIAL (J1100) As Ordered ONE (18:43)
[2019-03-24] MEDS ORDERED: SUGAMMADEX SODIUM 500 MG/5 ML VIAL (BRIDION) As Ordered ONE (18:46)
[2019-03-24] MEDS ORDERED: DESFLURANE 240 ML INHALANT As Ordered ONE (18:49)
[2019-03-24] MEDS ORDERED: SEVOFLURANE INHAL SOLN 250 ML BTL As Ordered ONE (18:50)
[2019-03-24] MEDS ORDERED: traMADol 50 MG TAB PO PRN (19:30)
[2019-03-24] MEDS: LR 1,000 ML IV SCH ×2 (19:30→22:11)
[2019-03-24] MEDS ORDERED: MORPHINE 4 MG/ML 1ML VIAL/SYRINGE (J2270) IV PRN (19:30)
[2019-03-24] MEDS: PERCOCET 5MG/325MG TAB PO PRN ×2 (20:00→21:06)
[2019-03-24] MEDS: fentaNYL 100 MCG/2 ML INJECTION (J3010) IV PRN ×4 (20:00→20:20)
[2019-03-24] MEDS ORDERED: fentaNYL 100 MCG/2 ML INJECTION (J3010) As Ordered ONE (20:01)
[2019-03-24] MEDS: HYDROMORPHONE HCL 0.5 MG/ 0.5 ML SYRINGE (J1170 PER 1) IV PRN ×4 (20:22→21:00)
[2019-03-24] MEDS ORDERED: HYDROMORPHONE HCL 0.5 MG/ 0.5 ML SYRINGE (J1170 PER 1) As Ordered ONE (20:22)
[2019-03-24] MEDS ORDERED: LR 1,000 ML IV SCH (20:30)
[2019-03-24] MEDS: SENOKOT S TAB PO SCH (21:00)
[2019-03-24 21:25] VITALS: BP 152/87
[2019-03-24 22:00] VITALS: BP 127/89
[2019-03-24] MEDS: SUCRALFATE 1 GM TAB PO SCH (22:00)
[2019-03-24 22:30] VITALS: BP 131/76
[2019-03-24] MEDS: ALVIMOPAN 12 MG CAPSULE (ENTEREG) PO SCH (23:16)
[2019-03-24 23:30] VITALS: BP 123/81
[2019-03-25] VITALS (10 sets, daily range): BP systolic 110–180; BP diastolic 64–91
[2019-03-25] MEDS: SUCRALFATE 1 GM TAB PO SCH ×3 (05:51→21:38)
[2019-03-25 05:55] LABS: BASO % 0.1 % (0.0-1.0); HEMATOCRIT 40.4 % (36.0-47.0); HEMOGLOBIN 12.4 g/dl (12.0-15.5); LYMPH % 6.8 % (24.0-44.0); MEAN CORPUSCULAR HEMOGLOBIN 27.3 pg (27.0-33.0); MEAN CORPUSCULAR HGB CONC 30.7 g/dl (32.0-36.5); MONO # 0.9 10^3/uL (0.0-0.8); NEUTROPHILS # 12.4 10^3/uL (1.8-7.7); NEUTROPHILS % 86.6 % (36.0-66.0); PLATELET COUNT, AUTOMATED 284 10^3/uL (150-450); RED BLOOD COUNT 4.54 10^6/uL (4.00-5.40); WHITE BLOOD COUNT 14.3 10^3/uL (4.0-10.0)
[2019-03-25] MEDS: LR 1,000 ML IV SCH ×3 (06:08→22:28)
[2019-03-25 06:29] LABS: BLOOD UREA NITROGEN 16 MG/DL (7-18); CALCIUM LEVEL 8.9 MG/DL (8.8-10.2); CARBON DIOXIDE LEVEL 29 MEQ/L (21-32); CHLORIDE LEVEL 104 MEQ/L (98-107); GLOMERULAR FILTRATION RATE > 60.0 (>45); GLUCOSE, FASTING 117 MG/DL (70-100); POTASSIUM SERUM 4.4 MEQ/L (3.5-5.1); SODIUM LEVEL 141 MEQ/L (136-145)
[2019-03-25] MEDS: ONDANSETRON 4MG/2ML VIAL (J2405) IV PRN ×3 (07:34→21:03)
[2019-03-25] MEDS: PERCOCET 5MG/325MG TAB PO PRN ×3 (07:55→19:06)
--- NOTE | 2019-03-25 08:05 | ROOPDOC ---
[facility] Report Of Operation Report of Operation DATE OF PROCEDURE: 03/25/19 PREPROCEDURE DIAGNOSES: Perforated viscus with pneumoperitoneum found on CT. POSTPROCEDURE DIAGNOSES: No evidence for perforation, gastrojejunal ulcer. PROCEDURE: Exploratory Laparotomy, upper GI endoscopy. SURGEON: Casa Kidd MD PROGRAMMER ANALYST HEALTH IT: MD Dr. Chad Rangel was present throughout the whole case from skin incision to abdominal closure and provided retraction during the whole case and assisted with closure of the fascia ANESTHESIA: General anesthesia. ESTIMATED BLOOD LOSS: Approximately 100 mL. COMPLICATIONS: None. REMARKS: 68-year-old female with prior history of gastric bypass presented to the emergency room with at least 3 days history of sharp epigastric abdominal pain and discomfort with multiple episodes of nausea and bilious vomiting. She was evaluated found to have leukocytosis, tenderness over the epigastric and left upper quadrant area and evidence for free intraperitoneal air surrounding the gastrojejunal anastomosis from her gastric bypass. PROCEDURE NOTE: On exploration no evidence of ascites or leakage of enteric contents. There is marked thickening circumferentially of the gastrojejunal anastomosis that appears chronic likewise hardening of the area but no gross perforation or ischemia. She has an antecolic limb to her gastric bypass. No evidence for Elizondo's hernia. No evidence for internal hernia. The common channel appears normal no evidence of obstruction. Normal-appearing appendix palpated. On upper GI endoscopy large chronic appearing ulcer that is nonbleeding located at the lateral wall of the jejunum side of the gastrojejunal anastomosis. The anastomosis was tested under water while doing upper endoscopy and no evidence of perforation was found.. DESCRIPTION OF PROCEDURE: Patient was given a dose of Zosyn 3.375 g IV for prophylactic antibiotic. She is brought to the operating room, placed supine on the table. Sequential Compression boots placed on both lower extremities for DVT prophylaxis. A Nunez catheter placed for urine output monitoring. Her abdomen was then prepped and draped widely in usual sterile fashion.We paused for a surgical timeout using both pre-incision safety checklist to verify correct patient, procedure site and additional clinical information prior to beginning the procedure. I started with an upper midline abdominal incision from the epigastrium to the area above her umbilicus using a skin scalpel and taking this through to the subcutaneous tissue. Her skin and subcutaneous tissue were loose and minimal secondary to her weight loss from her gastric bypass. Once the anterior fascia was exposed, the fascial incision was created at the midline. The fascia was lifted up and the linea alba identified. The posterior fascia was lifted up in between hemostats and opened up and divided using Metzenbaum scissors. The anterior and posterior fascia were opened up under direct visualization throughout the rest of the skin incision. On entry to the abdomen I did not encounter any fluid or ascites or any enteric contents. The gastrojejunostomy was immediately visualized and this appears chronically thickened. I followed up through the different limb of the gastrojejunostomy to the common channel likewise the biliopancreatic limb from the small bowel anastomosis to the ligament of Treitz and there was no any evident obstruction along both small bowel tracts. The bypass limb was placed antecolic which is fairly loose and not tethered to the transverse colon or its omentum. I looked into the area of the pylorus and duodenum for signs of any ulcer perforation of this area and did not find any. I slightly enlarged incision to below the umbilicus to evaluate the right lower quadrant area and was able to visualize the appendix which appears normal. I palpated in the pelvis as well as the left side of the abdomen did not feel any inflamed or thickened areas to signify any inflammation in the pelvis or left lower quadrant abdominal wall, sigmoid colon. At this point I tested the gastrojejunostomy for signs of leakage replacing this under water and placing pressure in the gastric jejunostomy length and did not get any bubbling to signify there is a perforation. There was really no signs of a recent perforatio n either just generalized chronic thickening along the gastrojejunostomy especially that of the ambriz's hook of the jejunostomy. I then asked for the upper endoscopy tower to be brought in the room. I scrubbed out and performed an upper endoscopy. Visualized portion of the esophagus is normal. I went through a slightly enlarged gastric pouch and was able to visualized a big-sized (I estimate about 2 cm) cratered ulcer on the jejunostomy site of the gastrojejunostomy anastomosis. This is covered with fibrin. It was no active bleeding or signs of any recent stigmata of bleed. While doing endoscopy insufflating air I tested the gastrojejunostomy again under water to look for any bubbling or signs of perforation did not find any. I then withdrew the gastroscope. I scrubbed back in and with this findings was convinced that there was no perforation or there could have been a prior perforation that has already sealed. This does not seem that the perforation was recent. I then closed her fascial opening with a running loop 1 PDS. The skin and subcutaneous tissue was released from the fascia to create an adequate skin closure. She was promptly awakened. Postoperative dressings were placed on the incision. She was extubated and brought to recovery room in stable condition. CASA KIDD MD March 25, 2019 08:05
[2019-03-25] MEDS ORDERED: PREVNAR 13 VACCINE SYRINGE (CPT CODE:90670) IM ONE (09:00)
[2019-03-25] MEDS: SENOKOT S TAB PO SCH ×2 (09:00→21:38)
[2019-03-25] MEDS: PANTOPRAZOLE 40MG INJ (PROTONIX) (C9113) IV SCH (09:41)
[2019-03-25] MEDS: ALVIMOPAN 12 MG CAPSULE (ENTEREG) PO SCH ×2 (09:42→21:38)
[2019-03-25] MEDS: METOPROLOL SUCC *XL* 25MG TAB (TopROL *XL*) PO SCH (09:44)
[2019-03-25] MEDS: RIVAROXABAN 20 MG TAB (XARELTO) PO SCH (21:38)
[2019-03-26] MEDS: PERCOCET 5MG/325MG TAB PO PRN ×2 (01:15→06:38)
[2019-03-26 06:00] VITALS: BP 135/82
[2019-03-26 06:01] LABS: BASO % 0.2 % (0.0-1.0); EOS % 0.4 % (0.0-3.0); HEMOGLOBIN 10.6 g/dl (12.0-15.5); LYMPH # 1.4 10^3/uL (1.5-4.5); MEAN CORPUSCULAR HEMOGLOBIN 26.4 pg (27.0-33.0); MEAN CORPUSCULAR HGB CONC 30.3 g/dl (32.0-36.5); MEAN CORPUSCULAR VOLUME 87.1 fl (80.0-96.0); MONO # 0.7 10^3/uL (0.0-0.8); MONO % 7.2 % (0.0-5.0); NEUTROPHILS # 7.5 10^3/uL (1.8-7.7); NEUTROPHILS % 77.7 % (36.0-66.0); PLATELET COUNT, AUTOMATED 249 10^3/uL (150-450); RED BLOOD COUNT 4.02 10^6/uL (4.00-5.40); WHITE BLOOD COUNT 9.7 10^3/uL (4.0-10.0)
[2019-03-26 06:17] LABS: BLOOD UREA NITROGEN 12 MG/DL (7-18); CALCIUM LEVEL 7.9 MG/DL (8.8-10.2); CARBON DIOXIDE LEVEL 28 MEQ/L (21-32); CHLORIDE LEVEL 106 MEQ/L (98-107); CREATININE FOR GFR 0.61 MG/DL (0.55-1.30); GLOMERULAR FILTRATION RATE > 60.0 (>45); GLUCOSE, FASTING 83 MG/DL (70-100); POTASSIUM SERUM 3.4 MEQ/L (3.5-5.1); SODIUM LEVEL 142 MEQ/L (136-145)
[2019-03-26] MEDS: LR 1,000 ML IV SCH (06:38)
[2019-03-26] MEDS: ONDANSETRON 4MG/2ML VIAL (J2405) IV PRN (06:39)
[2019-03-26] MEDS: SUCRALFATE 1 GM TAB PO SCH ×3 (06:39→17:07)
[2019-03-26] MEDS: PANTOPRAZOLE 40MG INJ (PROTONIX) (C9113) IV SCH (08:23)
[2019-03-26] MEDS: METOPROLOL SUCC *XL* 25MG TAB (TopROL *XL*) PO SCH (08:24)
[2019-03-26] MEDS: SENOKOT S TAB PO SCH ×2 (08:24→21:00)
[2019-03-26] MEDS: ALVIMOPAN 12 MG CAPSULE (ENTEREG) PO SCH ×2 (08:29→21:18)
[2019-03-26] MEDS: KETOROLAC 30 MG/ML VIAL (J1885) IV PRN ×2 (08:30→21:18)
[2019-03-26] MEDS ORDERED: PREVNAR 13 VACCINE SYRINGE (CPT CODE:90670) IM ONE (10:00)
--- NOTE | 2019-03-26 11:34 | IPNPDOC ---
Subjective General Date/Time Seen The patient was seen on 03/26/19 at 11:21. Subject Chief Complaint/History The patient is a 68-year-old female admitted with a reason for visit of Bowel Perforation. patient feeling much better. Denies any further nausea or vomiting, afebrile. Current Medications Current Medications Current Medications Alvimopan (Entereg) 12 mg BID PO Last administered on 03/26/19at 08:29; Start 03/24/19 at 21:00; Stop 03/29/19 at 20:59 Diatrizoate Meglum/ Diatrizoate Sod (Gastrografin) 10 ml Q30M PO Last administered on 03/24/19at 13:47; Start 03/24/19 at 13:30; Stop 03/24/19 at 14:01; Status DC Fentanyl Citrate (Sublimaze) 25 mcg Q5MP PRN IV MODERATE PAIN (PS 4-7) Last administered on 03/24/19at 20:20; Start 03/24/19 at 20:30; Stop 03/24/19 at 20:47; Status DC Home Med (Med Rec Complete!) ASDIRECTED XX ; Start 03/24/19 at 16:45; Stop 03/24/19 at 16:45; Status DC Hydromorphone HCl (Dilaudid) 0.5 mg Q5MP PRN IV MODERATE/SEVERE PAIN (PS 5-10) Last administered on 03/24/19at 21:00; Start 03/24/19 at 20:30; Stop 03/24/19 at 21:30; Status DC Ketorolac Tromethamine (ToRADol) 30 mg Q6HP PRN IV MILD/MODERATE PAIN (PS 1-7) Last administered on 03/26/19at 08:30; Start 03/24/19 at 19:30; Stop 03/29/19 at 19:29 Lactated Ringer's 1,000 ml @ 100 mls/hr Q10H IV Last administered on 03/24/19at 19:30; Start 03/24/19 at 20:30; Stop 03/24/19 at 21:30; Status DC Lactated Ringer's 1,000 ml @ 125 mls/hr Q8H IV Last administered on 03/26/19at 06:38; Start 03/24/19 at 19:30 Metoprolol Succinate (TopROL XL) 25 mg DAILY PO Last administered on 03/26/19 08:24; Start 03/25/19 at 09:00 Morphine Sulfate (Morphine Sulfate Inj) 4 mg Q2HP PRN IV SEVERE PAIN (PS 8-10); Start 03/24/19 at 19:30 Ondansetron HCl (ZOFRAN INJection) 4 mg Q6HP PRN IV NAUSEA OR VOMITING Last administered on 03/26/19 06:39; Start 03/24/19 at 19:30 Oxycodone/ Acetaminophen (Percocet 5mg/ 325mg Tablet) 1 tab Q4HP PRN PO MODERATE PAIN (PS 5-7) Last administered on 03/25/19 19:06; Start 03/24/19 at 19:30 Oxycodone/ Acetaminophen (Percocet 5mg/ 325mg Tablet) 2 tab Q6HP PRN PO SEVERE PAIN (PS 8-10) Last administered on 03/26/19 06:38; Start 03/24/19 at 19:30 Pantoprazole Sodium (Protonix) 40 mg DAILY IV Last administered on 03/26/19 08:23; Start 03/25/19 at 09:00 Rivaroxaban (Xarelto) 20 mg QHS PO Last administered on 03/25/19 21:38; Start 03/25/19 at 21:00 Senna/Docusate Sodium (Senokot S) 1 tab BID PO Last administered on 03/25/19 21:38; Start 03/24/19 at 21:00 Sucralfate (Carafate) 1 gm Q8H PO Last administered on 03/26/19 06:39; Start 03/24/19 at 22:00 Tramadol HCl (Ultram) 50 mg BIDP PRN PO PAIN; Start 03/24/19 at 19:30 Allergies Coded Allergies: No Known Allergies (Unverified , 03/24/19) Objective Physical Examination Examination GENERAL APPEARANCE:looks comfortable. SKIN: Warm and moist. HEENT: Normocephalic, atraumatic. [place] palpebral conjunctiva, anicteric sclerae. Lips and mucosa appear moist. NECK: Supple, no thyromegaly. No obvious jugular venous distention. LUNGS: Clear to auscultation bilaterally. No wheezing appreciated. HEART: irregular rhythm ABDOMEN: Abdomen is minimally distended, soft, upper midline incision, intact, dry. abel intact. nontender on palpation. EXTREMITIES: no edema. Vital Signs Vital Signs Date Time Temp Pulse Resp B/P (MAP) Pulse Ox O2 Delivery O2 Flow Rate FiO2 03/26/19 08:24 85 135/82 03/26/19 07:08 18 03/26/19 06:00 98.8 90 03/25/19 06:00 2.0 03/24/19 15:46 Room Air I&Os I&O- Last 24 Hours up to 6 AM 03/26/19 06:00 Intake Total 1620 ml Output Total 300 ml Balance 1320 ml Laboratory Data Labs 24H Laboratory Tests 2 03/26/19 05:20: Immature Granulocyte % (Auto) 0.5, White Blood Count 9.7, Red Blood Count 4.02, Hemoglobin 10.6L, Hematocrit 35.0L, Mean Corpuscular Volume 87.1, Mean Corpus cular Hemoglobin 26.4L, Mean Corpuscular Hemoglobin Concent 30.3L, Red Cell Distribution Width 15.7H, Platelet Count 249, Neutrophils (%) (Auto) 77.7H, Lymphocytes (%) (Auto) 14.0L, Monocytes (%) (Auto) 7.2H, Eosinophils (%) (Auto) 0.4, Basophils (%) (Auto) 0.2, Neutrophils # (Auto) 7.5, Lymphocytes # (Auto) 1.4L, Monocytes # (Auto) 0.7, Eosinophils # (Auto) 0.0, Basophils # (Auto) 0.0, Nucleated Red Blood Cells % (auto) 0.0, Anion Gap 8, Glomerular Filtration Rate > 60.0, Blood Urea Nitrogen 12, Creatinine 0.61, Sodium Level 142, Potassium Level 3.4#L, Chloride Level 106, Carbon Dioxide Level 28, Calcium Level 7.9L CBC/BMP Laboratory Tests 03/26/19 05:20 Red Blood Count 4.02, Mean Corpuscular Volume 87.1, Mean Corpuscular Hemoglobin 26.4 L, Mean Corpuscular Hemoglobin Concent 30.3 L, Red Cell Distribution Width 15.7 H, Neutrophils (%) (Auto) 77.7 H, Lymphocytes (%) (Auto) 14.0 L, Monocytes (%) (Auto) 7.2 H, Eosinophils (%) (Auto) 0.4, Basophils (%) (Auto) 0.2, Ne utrophils # (Auto) 7.5, Lymphocytes # (Auto) 1.4 L, Monocytes # (Auto) 0.7, Eosinophils # (Auto) 0.0, Basophils # (Auto) 0.0, Calcium Level 7.9 L Microbiology Microbiology 03/24/19 Urine Culture - Final, Complete Impression POD2 Ex lap - negative for perforation gastric bypass status gastrojejunostomy ulcer atrial fibrillation on xarelto continue with PPI plus carafate for 6 weeks, then reevaluate advance diet. replace K+ d/c IVF if tolerating diet, most likely d/c tomorrow Plan / VTE VTE Prophylaxis Ordered?: No VTE Exclusion Mechanical Proph: Other (on xarelto) NELLIE DELGADO MD March 26, 2019 11:22
[2019-03-26 14:38] VITALS: BP 129/70
[2019-03-26] MEDS: RIVAROXABAN 20 MG TAB (XARELTO) PO SCH (21:18)
[2019-03-26] MEDS: PANTOPRAZOLE 40MG TAB (PROTONIX) PO SCH (21:18)
[2019-03-26 22:00] VITALS: BP 150/81
[2019-03-27 06:00] VITALS: BP 138/81
[2019-03-27 06:08] LABS: BASO % 0.4 % (0.0-1.0); EOS # 0.2 10^3/uL (0.0-0.50); EOS % 2.8 % (0.0-3.0); HEMATOCRIT 33.4 % (36.0-47.0); HEMOGLOBIN 10.3 g/dl (12.0-15.5); LYMPH % 12.8 % (24.0-44.0); MEAN CORPUSCULAR HEMOGLOBIN 26.8 pg (27.0-33.0); MEAN CORPUSCULAR HGB CONC 30.8 g/dl (32.0-36.5); MEAN CORPUSCULAR VOLUME 86.8 fl (80.0-96.0); MONO # 0.5 10^3/uL (0.0-0.8); MONO % 7.1 % (0.0-5.0); NEUTROPHILS # 5.8 10^3/uL (1.8-7.7); NEUTROPHILS % 76.4 % (36.0-66.0); PLATELET COUNT, AUTOMATED 228 10^3/uL (150-450); RED BLOOD COUNT 3.85 10^6/uL (4.00-5.40); WHITE BLOOD COUNT 7.6 10^3/uL (4.0-10.0)
[2019-03-27 06:29] LABS: BLOOD UREA NITROGEN 16 MG/DL (7-18); CALCIUM LEVEL 8.3 MG/DL (8.8-10.2); CARBON DIOXIDE LEVEL 29 MEQ/L (21-32); CHLORIDE LEVEL 109 MEQ/L (98-107); CREATININE FOR GFR 0.62 MG/DL (0.55-1.30); GLOMERULAR FILTRATION RATE > 60.0 (>45); GLUCOSE, FASTING 92 MG/DL (70-100); POTASSIUM SERUM 3.7 MEQ/L (3.5-5.1); SODIUM LEVEL 144 MEQ/L (136-145)
[2019-03-27] MEDS ORDERED: SUCR1TA PO (08:42)
[2019-03-27] MEDS ORDERED: PANT40TA3 PO (08:42)
[2019-03-27] MEDS ORDERED: PERCOCET PO (08:42)
[2019-03-27] MEDS: PANTOPRAZOLE 40MG TAB (PROTONIX) PO SCH (08:50)
[2019-03-27] MEDS: SENOKOT S TAB PO SCH ×2 (08:51→09:00)
[2019-03-27] MEDS: SUCRALFATE 1 GM TAB PO SCH (08:52)
[2019-03-27 08:54] VITALS: BP 172/103
[2019-03-27] MEDS: METOPROLOL SUCC *XL* 25MG TAB (TopROL *XL*) PO SCH (08:54)
[2019-03-27 08:55] VITALS: BP 172/103
[2019-03-27] MEDS: ALVIMOPAN 12 MG CAPSULE (ENTEREG) PO SCH (10:04)
[2019-03-27 10:15] VITALS: BP 152/88
[2019-03-27] MEDS: KETOROLAC 30 MG/ML VIAL (J1885) IV PRN (10:37)
--- NOTE | 2019-04-02 02:57 | DS.PDOC ---
Discharge Summary General Date of Admission March 24, 2019 at 19:33 Date of Discharge 03/27/2019 Attending Physician: NELLIE DELGADO MD Discharge Summary PROCEDURES PERFORMED DURING STAY: Expiratory laparotomy, upper GI endoscopy. ADMITTING DIAGNOSES: 1. Perforated viscus probably from perforation at the gastrojejunostomy of her gastric bypass 2. Gastric bypass status 3. Sick sinus syndrome status post pacemaker placement 4. Atrial fibrillation on anticoagulation. DISCHARGE DIAGNOSES: 1. Gastrojejunostomy ulcer without any evidence of recent perforation 2. Gastric bypass status 3. Sick sinus syndrome status post pacemaker placement 4. Atrial fibrillation on anticoagulation. COMPLICATIONS/CHIEF COMPLAINT: Bowel Perforation. HISTORY OF PRESENT ILLNESS: Patient presents to the ER with 3 day history of epigastric discomfort with multiple episodes of bilious emesis. She has a history of gastric bypass in 2012. She reports no previous problems with her gastric bypass though about a month or so ago she reports symptoms that she suspect was dumping. She has no prior history of ulcers. She does not smoke nor drink alcohol. Her past month has been feeling slightly off though no real epigastric discomfort up until last Sunday. She reports sharp discomfort over the epigastric area with slight radiation to the left side of her abdomen accompanied with nausea and multiple episodes of bilious vomiting. Patient not able to take oral foods well due to the nausea and pain. This gradually developed and worsened over the weekend. She denies any accompanying fevers or chills. HOSPITAL COURSE: Patient was brought to the operating room from the emergency room with findings of possible perforated viscus with CT scan findings of free intraperitoneal air and tenderness mostly centered at the epigastric area. 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 Her abdomen was closed and she was treated as somebody with gastrojejunal ulcer. She was started on Protonix 40 mg IV twice a day likewise and Carafate. She was admitted to the surgical floor given intermittent doses of Percocet some morphine for postoperat jackie pain control. Her Nunez catheter was removed on postop day 1. She was started on clear liquids on postop day 1 she started to tolerate. I gradually advanced to soft foods. Once she was comfortable and was able to tolerate regular food she was subsequ ently discharged. Her abel remain in place and will be removed in my clinic on her follow-up. DISCHARGE MEDICATIONS: Please see below. ALLERGIES: Please see below. PHYSICAL EXAMINATION ON DISCHARGE: VITAL SIGNS: Please see below. GENERAL: Very comfortable HEENT: Mild chronic pale palpebral conjunctiva NECK: Supple, no thyromegaly. No obvious jugular venous distention CARDIOVASCULAR EXAMINATION: Irregular heart rhythm, regular rate. Pacemaker in place RESPIRATORY EXAMINATION: Clear breath sounds to auscultation bilaterally with no wheezing ABDOMINAL EXAMINATION: Flat, soft, non-distended. She has an upper midline incision with abel on them. No drainage or erythema associated with this. She is nontender on palpation EXTREMITIES: No edema SKIN: No skin rashes or breakdown NEUROLOGICAL EXAMINATION: Awake, alert, oriented LABORATORY DATA: Please see below. IMAGING: CT scan of the abdomen and pelvis done on 03/24/2019 in the emergency room PROGNOSIS: Blood ACTIVITY: Light activity until reevaluated in the clinic in 2 weeks' time. DIET: Low residue diet DISCHARGE PLAN: Patient is discharged home on twice a day Protonix as well as Carafate prior to meals. This regimen will continue for 6 weeks. Tentative plan for upper endoscopy to reevaluate the anastomosis following a full course of the ulcer treatment. DISPOSITION: 01 Home, Self-Care. DISCHARGE INSTRUCTIONS: 1. As above. Follow-up with me next week for removal of abel. DISCHARGE CONDITION: Stable. Improved TIME SPENT ON DISCHARGE: Greater than 30 minutes. Vital Signs/I&Os Vital Signs Date Time Temp Pulse Resp B/P (MAP) Pulse Ox O2 Delivery O2 Flow Rate FiO2 03/27/19 10:15 82 16 152/88 (109) 03/27/19 08:55 98.2 98 0.0 Microbiology Microbiology 03/24/19 Urine Culture - Final, Complete Discharge Medications Scheduled Metoprolol Succinate (Metoprolol Succinate) 25 Mg Tab, 25 MG PO DAILY, (Re ported) Pantoprazole Sodium (Pantoprazole Sodium) 40 Mg Tablet.dr, 40 MG PO BID Rivaroxaban (Xarelto) 20 Mg Tab, 20 MG PO QHS, (Reported) Sucralfate (Sucralfate) 1 Gm Tablet, 1 GM PO AC Scheduled PRN Oxycodone/Acetaminophen (Oxycodone-Acetaminophen 5-325) 1 Each Tablet, 1-2 TAB PO Q6HP PRN for MODERATE PAIN (PS 5-7) Tramadol HCl (Tramadol HCl) 50 Mg Tab, 50 MG PO BID PRN for PAIN, (Reported) Allergies Coded Allergies: No Known Allergies (Unverified , 03/24/19) NELLIE DELGADO MD April 02, 2019 02:57
== END 2019-03-27 11:17 | disposition home or self-care (01) | DRG 358 ==
LOC: M ED 11:39 → M SDC 15:40 → M MSPAV 19:33 → M SDC 03-25 11:09
PROVIDERS: ADMIT Surgery; ATTEND Surgery
PROC: 0WJP0ZZ Inspection of Gastrointestinal Tract, Open Approach (ICD-10-PCS; principal; 2019-03-25)
PROC: 0DJ08ZZ Inspection of Upper Intestinal Tract, Via Natural or Artificial Opening Endoscopic (ICD-10-PCS; 2019-03-25)
DX: K28.9 Gastrojejunal ulcer, unspecified as acute or chronic, without hemorrhage or perforation (principal); I10 Essential (primary) hypertension; M06.9 Rheumatoid arthritis, unspecified; I48.91 Unspecified atrial fibrillation; Z79.01 Long term (current) use of anticoagulants; Z79.899 Other long term (current) drug therapy; Z95.0 Presence of cardiac pacemaker; Z98.84 Bariatric surgery status

== ENCOUNTER → 2019-04-18 | Outpatient (REF) | payer MEDICARE ==
[~2019-04-18] MED LIST changes: +PANT40TA3 PO; +PERCOCET PO; +PRIL20TA2 PO; +SUCR1TA PO
[2019-04-18 12:00] LABS: HEMATOCRIT 32.9 % (36.0-47.0); HEMOGLOBIN 9.9 g/dl (12.0-15.5); MEAN CORPUSCULAR HEMOGLOBIN 27.5 pg (27.0-33.0); MEAN CORPUSCULAR HGB CONC 30.1 g/dl (32.0-36.5); MEAN CORPUSCULAR VOLUME 91.4 fl (80.0-96.0); PLATELET COUNT, AUTOMATED 297 10^3/uL (150-450); WHITE BLOOD COUNT 5.5 10^3/uL (4.0-10.0)
== END ==
LOC: M SFHCPLAZ 08:48
PROVIDERS: ATTEND Nurse Practitioner Family
DX: K25.3 Acute gastric ulcer without hemorrhage or perforation (principal); D64.9 Anemia, unspecified
CPT/HCPCS: 36415; 83550; 85027; G0463

== ENCOUNTER → 2019-11-24 | Outpatient (REF) | payer MEDICARE, MEDICAID ==
[~2019-11-24] MED LIST changes: +CYAN100049 PO; +FERR325T3 PO; +FLUTISP NARES; +ONDA-83 PO; -ONDA4TAB5 PO; -VITA10002 PO
[2019-11-24 12:57] LABS: BASO # 0.1 10^3/uL (0.0-0.2); BASO % 0.9 % (0.0-1.0); EOS # 0.1 10^3/uL (0.0-0.5); EOS % 0.9 % (0.0-3.0); HEMATOCRIT 46.4 % (36.0-47.0); HEMOGLOBIN 14.3 g/dl (12.0-15.5); LYMPH # 2.9 10^3/uL (1.5-5.0); LYMPH % 36.5 % (24.0-44.0); MEAN CORPUSCULAR HEMOGLOBIN 31.8 pg (27.0-33.0); MEAN CORPUSCULAR HGB CONC 30.8 g/dl (32.0-36.5); MEAN CORPUSCULAR VOLUME 103.3 fl (80.0-96.0); MONO # 0.7 10^3/uL (0.0-0.8); MONO % 9.1 % (0.0-5.0); NEUTROPHILS # 4.1 10^3/uL (1.5-8.5); NEUTROPHILS % 52.3 % (36.0-66.0); PLATELET COUNT, AUTOMATED 245 10^3/uL (150-450); RED BLOOD COUNT 4.49 10^6/uL (4.00-5.40); WHITE BLOOD COUNT 7.9 10^3/uL (4.0-10.0)
[2019-11-24 13:15] LABS: ALBUMIN 3.9 GM/DL (3.2-5.2); ALT/SGPT 14 U/L (12-78); BILIRUBIN,TOTAL 0.5 MG/DL (0.2-1.0); BLOOD UREA NITROGEN 8 MG/DL (7-18); C REACTIVE PROTEIN QUANTITATIV < 0.30 MG/DL (0.00-0.30); CARBON DIOXIDE LEVEL 29 MEQ/L (21-32); CHLORIDE LEVEL 107 MEQ/L (98-107); CREATININE FOR GFR 0.78 MG/DL (0.55-1.30); GLOMERULAR FILTRATION RATE > 60.0 (>45); GLUCOSE, FASTING 97 MG/DL (70-100); POTASSIUM SERUM 4.4 MEQ/L (3.5-5.1); RHEUMATOID FACTOR QUANT < 10.0 IU/ML (<15.0); SODIUM LEVEL 143 MEQ/L (136-145)
[2019-11-24 13:50] LABS: ERYTHROCYTE SEDIMENTATION RATE 5 mm/hr (0-30)
[2019-11-26 00:06] LABS: ANA (HEP2) Negative (.); CYCLIC CITRULLINATED PEPTIDE 7 units (0-19); Lyme Disease IgG/IgM Antibodie <0.91 ISR (0.00-0.90); Lyme Disease IgM Ab Quantitati <0.80 index (0.00-0.79)
== END ==
LOC: M SFHCRHEU 10:54
PROVIDERS: ATTEND Internal Medicine
DX: M25.50 Pain in unspecified joint (principal); L65.9 Nonscarring hair loss, unspecified
CPT/HCPCS: 36415; 80053; 85025; 85652; 86038; 86140; 86200; 86431; 86617; G0463

== ENCOUNTER → 2019-12-17 | Outpatient (REF) | payer MEDICARE, MEDICAID ==
[2019-12-17 14:24] LABS: HEMATOCRIT 47.5 % (36.0-47.0); HEMOGLOBIN 14.8 g/dl (12.0-15.5); MEAN CORPUSCULAR HEMOGLOBIN 32.5 pg (27.0-33.0); MEAN CORPUSCULAR HGB CONC 31.2 g/dl (32.0-36.5); MEAN CORPUSCULAR VOLUME 104.4 fl (80.0-96.0); PLATELET COUNT, AUTOMATED 230 10^3/uL (150-450); RED BLOOD COUNT 4.55 10^6/uL (4.00-5.40); WHITE BLOOD COUNT 7.2 10^3/uL (4.0-10.0)
[2019-12-17 14:39] LABS: ALBUMIN 3.8 GM/DL (3.2-5.2); ALT/SGPT 17 U/L (12-78); BILIRUBIN,TOTAL 0.5 MG/DL (0.2-1.0); BLOOD UREA NITROGEN 7 MG/DL (7-18); CALCIUM LEVEL 9.5 MG/DL (8.8-10.2); CARBON DIOXIDE LEVEL 31 MEQ/L (21-32); CHLORIDE LEVEL 107 MEQ/L (98-107); CHOLESTEROL LEVEL 208 MG/DL (<200); CHOLESTEROL RISK RATIO 2.773 (<5); CREATININE FOR GFR 0.84 MG/DL (0.55-1.30); FERRITIN 17 NG/ML (8-252); FREE T4 1.12 NG/DL (0.76-1.46); GLOMERULAR FILTRATION RATE > 60.0 (>45); GLUCOSE, FASTING 75 MG/DL (70-100); HDL CHOLESTEROL 75 MG/DL (>40); LDL CHOLESTEROL 107 MG/DL (<100); NON-HDL-C 133 MG/DL; POTASSIUM SERUM 4.7 MEQ/L (3.5-5.1); SODIUM LEVEL 144 MEQ/L (136-145); TOTAL PROTEIN 6.9 GM/DL (6.4-8.2); TRIGLYCERIDES LEVEL 129 MG/DL (<150)
[2019-12-17 14:41] LABS: FOLATE 13.2 NG/ML; TOTAL 25(OH) VITAMIN D 20.3 NG/ML (30.0-100.0); VITAMIN B12 LEVEL 266 PG/ML
== END ==
LOC: M SFHCADAM 10:04
PROVIDERS: ATTEND Nurse Practitioner Family
DX: Z87.19 Personal history of other diseases of the digestive system (principal); Z13.220 Encounter for screening for lipoid disorders; Z98.84 Bariatric surgery status; E55.9 Vitamin D deficiency, unspecified

== ENCOUNTER → 2019-12-17 | Outpatient (CLI) | payer MEDICARE, MEDICAID ==
--- NOTE | 2019-12-17 10:52 | REP ---
Clinical: Polyarthralgia. Technique: AP, lateral, bilateral oblique views of the right and left hand. Findings: Right hand demonstrates minimal subchondral sclerosis and joint space narrowing involving the first metacarpophalangeal joint and first through fifth interphalangeal joints. No significant periarticular swelling, erosive changes or loose bodies identified. No fracture dislocation. Left hand demonstrates minimal subchondral sclerosis and joint space narrowing involving the first metacarpophalangeal joint and first through fifth interphalangeal joints. No significant periarticular swelling, erosive changes, or loose bodies identified. No fracture or dislocation. Impression: Mild essentially age-related arthritic changes. Electronically Signed by Jay Mcwilliams MD 12/17/2019 10:44 A
== END ==
LOC: M ADAMS 10:07
PROVIDERS: ATTEND Internal Medicine
DX: M19.041 Primary osteoarthritis, right hand (principal); M19.042 Primary osteoarthritis, left hand; M25.50 Pain in unspecified joint; E55.9 Vitamin D deficiency, unspecified; Z87.19 Personal history of other diseases of the digestive system; Z13.220 Encounter for screening for lipoid disorders; Z98.84 Bariatric surgery status; Z79.899 Other long term (current) drug therapy

== ENCOUNTER → 2020-08-17 | Outpatient (CLI) | payer MEDICAID, MEDICARE ==
[~2020-08-17] MED LIST changes: +PANT40TA29 PO; -PANT40TA3 PO
--- NOTE | 2020-08-17 07:28 | REPVR ---
PROCEDURE INFORMATION: Exam: CT Head Without Contrast Exam date and time: 08/17/2020 7:02 AM Age: 69 years old Clinical indication: Other: Mild congonitive impairment TECHNIQUE: Imaging protocol: Computed tomography of the head without contrast. Radiation optimization: All CT scans at this facility use at least one of these dose optimization techniques: automated exposure control; mA and/or kV adjustment per patient size (includes targeted exams where dose is matched to clinical indication); or iterative reconstruction. COMPARISON: No relevant prior studies available. FINDINGS: Brain: Normal. No hemorrhage. Unremarkable white matter. No mass effect. Cerebral ventricles: No ventriculomegaly. Bones/joints: Unremarkable. No acute fracture. Paranasal sinuses: Visualized sinuses are unremarkable. No fluid levels. Mastoid air cells: Visualized mastoid air cells are well aerated. Soft tissues: Unremarkable. IMPRESSION: No CT evidence for acute intracranial abnormality. Electronically signed by: Mino Benitez On 08/17/2020 07:27:54 AM
== END ==
LOC: M RAD 06:53
PROVIDERS: ATTEND Psychiatry & Neurology Neurology
DX: G31.84 Mild cognitive impairment of uncertain or unknown etiology (principal)

== ENCOUNTER → 2020-12-20 | Outpatient (CLI) | payer MEDICARE ==
[2020-12-20 12:48] LABS: BASO # 0.1 10^3/uL (0.0-0.2); BASO % 0.9 % (0.0-1.0); EOS % 0.5 % (0.0-3.0); HEMATOCRIT 44.9 % (36.0-47.0); HEMOGLOBIN 14.2 g/dl (12.0-15.5); LYMPH # 1.5 10^3/uL (1.5-5.0); LYMPH % 22.4 % (24.0-44.0); MEAN CORPUSCULAR HEMOGLOBIN 32.3 pg (27.0-33.0); MEAN CORPUSCULAR HGB CONC 31.6 g/dl (32.0-36.5); MONO # 0.5 10^3/uL (0.0-0.8); NEUTROPHILS # 4.6 10^3/uL (1.5-8.5); PLATELET COUNT, AUTOMATED 237 10^3/uL (150-450); WHITE BLOOD COUNT 6.6 10^3/uL (4.0-10.0)
[2020-12-20 13:14] LABS: ERYTHROCYTE SEDIMENTATION RATE 6 mm/hr (0-30)
[2020-12-20 13:20] LABS: ALBUMIN 3.7 GM/DL (3.2-5.2); ALT/SGPT 17 U/L (12-78); BILIRUBIN,TOTAL 0.5 MG/DL (0.2-1.0); BLOOD UREA NITROGEN 9 MG/DL (7-18); CALCIUM LEVEL 9.1 MG/DL (8.8-10.2); CARBON DIOXIDE LEVEL 31 MEQ/L (21-32); CHLORIDE LEVEL 105 MEQ/L (98-107); GLOMERULAR FILTRATION RATE > 60.0 (>45); GLUCOSE, FASTING 115 MG/DL (70-100); SODIUM LEVEL 141 MEQ/L (136-145); TOTAL PROTEIN 6.6 GM/DL (6.4-8.2)
== END ==
LOC: M WUC 09:50
PROVIDERS: ATTEND Internal Medicine
DX: M06.4 Inflammatory polyarthropathy (principal)

== ENCOUNTER 2021-01-24 19:35 | Inpatient (IN) | payer MEDICARE ==
[~2021-01-24] VITALS: Ht 167.6 cm; Wt 63.4 kg
[2021-01-24 20:18] LABS: INR 1.15; PROTHROMBIN TIME 14.9 SECONDS (12.5-14.3)
[2021-01-24 20:19] LABS: PARTIAL THROMBOPLASTIN TIME 25.6 SECONDS (24.2-38.5)
[2021-01-24 20:20] LABS: BASO # 0.1 10^3/uL (0.0-0.2); BASO % 0.5 % (0.0-1.0); EOS % 0.2 % (0.0-3.0); HEMATOCRIT 37.8 % (36.0-47.0); HEMOGLOBIN 12.6 g/dl (12.0-15.5); LYMPH # 1.6 10^3/uL (1.5-5.0); LYMPH % 12.7 % (24.0-44.0); MEAN CORPUSCULAR HEMOGLOBIN 33.1 pg (27.0-33.0); MEAN CORPUSCULAR HGB CONC 33.3 g/dl (32.0-36.5); MEAN CORPUSCULAR VOLUME 99.2 fl (80.0-96.0); MONO # 0.9 10^3/uL (0.0-0.8); MONO % 7.5 % (2.0-8.0); NEUTROPHILS # 9.8 10^3/uL (1.5-8.5); NEUTROPHILS % 78.8 % (36.0-66.0); PLATELET COUNT, AUTOMATED 268 10^3/uL (150-450); RED BLOOD COUNT 3.81 10^6/uL (4.00-5.40); WHITE BLOOD COUNT 12.5 10^3/uL (4.0-10.0)
[2021-01-24] MEDS ORDERED: PANTOPRAZOLE 40MG VIAL (C9113 PER 1) IV ONE (20:20)
[2021-01-24 20:36] LABS: ALBUMIN 3.7 GM/DL (3.2-5.2); ALT/SGPT 20 U/L (12-78); BILIRUBIN,DIRECT 0.1 MG/DL (0.0-0.2); BILIRUBIN,TOTAL 0.8 MG/DL (0.2-1.0); BLOOD UREA NITROGEN 17 MG/DL (7-18); CALCIUM LEVEL 10.1 MG/DL (8.8-10.2); CARBON DIOXIDE LEVEL 31 MEQ/L (21-32); CHLORIDE LEVEL 105 MEQ/L (98-107); GLOMERULAR FILTRATION RATE > 60.0 (>45); GLUCOSE, FASTING 107 MG/DL (70-100); LIPASE 80 U/L (73-393); POTASSIUM SERUM 5.2 MEQ/L (3.5-5.1); SODIUM LEVEL 140 MEQ/L (136-145); TOTAL PROTEIN 6.8 GM/DL (6.4-8.2)
[2021-01-24] MEDS: GASTROGRAFIN SOLUTION 30ML PO SCH ×2 (20:39→21:31)
[2021-01-24 21:22] LABS: ETHYL ALCOHOL (ETHANOL) < 0.003 % (0.000-0.010)
[2021-01-24] MEDS ORDERED: ISOVUE-370 76% 100ML VIAL As Ordered ONE (22:14)
[2021-01-24 22:33] LABS: RSV AMPLIFICATION NEGATIVE (NEGATIVE)
--- NOTE | 2021-01-24 23:24 | REPVR ---
PROCEDURE INFORMATION: Exam: CT Abdomen And Pelvis With Contrast Exam date and time: 01/24/2021 10:41 PM Age: 70 years old Clinical indication: Abdominal pain; Generalized; Additional info: Gi bleed, HX of ulcer, gastric bypass TECHNIQUE: Imaging protocol: Computed tomography of the abdomen and pelvis with contrast. Radiation optimization: All CT scans at this facility use at least one of these dose optimization techniques: automated exposure control; mA and/or kV adjustment per patient size (includes targeted exams where dose is matched to clinical indication); or iterative reconstruction. Contrast material: ISOVUE 370; Contrast volume: 100 ml; Contrast route: INTRAVENOUS (IV); COMPARISON: CT ABD/PEL W/IV ORAL CONTRAS 03/24/2019 2:47 PM FINDINGS: Tubes, catheters and devices: Pacemaker in position. Liver: The liver attenuation is 73 Hounsfield units and the spleen is 146 Hounsfield units. Gallbladder and bile ducts: Normal. No calcified stones. No ductal dilation. Pancreas: Normal. No ductal dilation. Spleen: Normal. No splenomegaly. Adrenal glands: Normal. No mass. Kidneys and ureters: There are bilateral renal cysts measuring up to 17 mm on the left with a Hounsfield measurement of 7 consistent with simple cysts. No follow-up imaging is recommended. Stomach and bowel: There has been gastric bypass with collapse of the bypassed stomach and Sunil-en-Y in the left mid abdomen. There is some induration around the gastroenteric anastomosis suggesting some inflammation. There is slight diffuse wall thickening of the stomach which is not distended with question of some induration. Appendix: A normal appendix is seen. Intraperitoneal space: Unremarkable. No free air. No significant fluid collection. Vasculature: There is mild calcification of the abdominal aorta with extension into the iliac arteries. There is slight ectasia of the infrarenal aorta measuring up to 2.7 cm in diameter. Lymph nodes: Unremarkable. No enlarged lymph nodes. Urinary bladder: Unremarkable as visualized. Reproductive: Unremarkable as visualized. Bones/joints: Unremarkable. No acute fracture. Soft tissues: Unremarkable. IMPRESSION: 1. Status post gastric bypass with induration of fat around the gastroenteric anastomosis suggesting some inflammation. There is also slight wall thickening of the collapsed stomach with some adjacent shared induration along the anterior aspect which is primarily centered on the gastroenteric anastomosis. Gastritis is not excluded. 2. Probable fatty infiltration of the liver. 3. Otherwise negative CT abdomen/pelvis. COMMENTS: Consistent with the [employer]'s Incidental Findings Committee white paper (J Am Yudi Radiol 2018): Any incidental renal lesion less than 1 cm or classified as too small to characterize, or any incidental cystic renal lesion characterized as simple-appearing, is likely benign. No follow-up imaging is recommended for these lesions per consensus recommendations based on imaging criteria. Electronically signed by: Frederick Michel On 01/24/2021 23:24:32 PM
[2021-01-24] MEDS ORDERED: FLON1SPR (23:54)
[2021-01-24] MEDS ORDERED: FERR1TAB8 PO (23:54)
[2021-01-24] MEDS ORDERED: VITMTA PO (23:54)
[2021-01-24] MEDS ORDERED: SERT50TA29 PO (23:54)
[2021-01-24] MEDS ORDERED: HYDR200T3 PO (23:54)
[2021-01-24] MEDS ORDERED: TOPR25TA PO (23:54)
[2021-01-24] MEDS ORDERED: C 50TAB PO (23:54)
[2021-01-25] MEDS ORDERED: MAALOX 30 ML SUSP *UDC PO PRN (01:40)
[2021-01-25] MEDS ORDERED: MOM 30ML SUSPENSION UDC PO PRN (01:40)
[2021-01-25] MEDS ORDERED: ACETAMINOPHEN TAB 650MG DOSE (2X325MG) PO PRN (01:40)
[2021-01-25] MEDS ORDERED: FLUTICASONE PROP 0.05% NASAL SPRAY 16 GM (FLONASE) PRN (01:40)
[2021-01-25] MEDS ORDERED: ONDANSETRON 4MG/2ML VIAL IV PRN (02:00)
[2021-01-25 02:23] VITALS: BP 141/70
--- NOTE | 2021-01-25 02:28 | HPEPDOC ---
[facility] Medical History & Physical Date of Admission Jan 25, 2021 Date of Service: Jan 25, 2021 Attending Physician: BOBBY RODRÍGUEZ MD History and Physical CHIEF COMPLAINT: [This is a 70 y/o female who presents to the ED complaining of epigastric pain and dark stools x1 day.] HISTORY OF PRESENT ILLNESS: [Patient states that yesterday she woke up and experience on episode of stool she described as "jet black." Patient states that she then began to feel nauseated and experienced epigastric pain that comes and goes as well as more episodes of black stools. Patient states that she has not eaten or drank much due to her symptoms. Patient has a history of gastric ulcers and is unsure if her current symptoms feel the same as her previous ulcers. Patient denies associated vomiting, diarrhea, chest pain, palpitations, dizziness, lightheadedness, palpitations, shortness of breath, fever, chills.] PAST MEDICAL HISTORY: 1. [A-fib]. 2. [Rheumatoid arthritis]. 3. [Gastric uclers]. PAST SURGICAL HISTORY: 1. [Gastric bypass]. SOCIAL HISTORY: Marital status: [single]. Resides in: [lives alone] Children: [niece and nephew] Employment: [no] Tobacco use:[cigarretes, does not specify how many pack years] ETOH: [no] Illicit drug use: [no] ALLERGIES: Please see below. REVIEW OF SYSTEMS: CONSTITUTIONAL: [See hpi]. HEENT: [Denies uri symptoms]. CARDIOVASCULAR: [See hpi]. RESPIRATORY: [See hpi]. GASTROINTESTINAL: [See hpi]. GENITOURINARY: [Denies dysuria]. SKIN: [Denies rash]. MUSCULOSKELETAL: [Denies joint pain]. NEUROLOGICAL: [See hpi]. HOME MEDICATIONS: Please see below. PHYSICAL EXAMINATION: VITAL SIGNS: see below GENERAL APPEARANCE: [This is a 70 year old female who appears in no acute d istress. She is laying comfortably in bed.]. HEENT: [No mass or lesion. EOMI. No scleral icterus or conjunctival erythema. Nares patent. Oral mucosa dry without erythema.]. CARDIOVASCULAR: [Rate normal, rhythm irregular. No murmurs, rubs or gallops.]. LUNGS: [Good air flow auscultated. No wheezes, rales]. ABDOMEN: [Soft, non-distended. Tender in all quadrants.]. EXTREMITIES: [Cool, dry. No peripheral edema or clubbing noted.]. NEUROLOGICAL: [A+Ox3. Speech clear. No focal deficits.]. PSYCHIATRIC: [Mood and affect appear appropriate]. LABORATORY DATA: See below. IMAGING: [CT Abd/pelvis: FINDINGS: Tubes, catheters and devices: Pacemaker in position. Liver: The liver attenuation is 73 Hounsfield units and the spleen is 146 Hounsfield units. Gallbladder and bile ducts: Normal. No calcified stones. No ductal dilation. Pancreas: Normal. No ductal dilation. Spleen: Normal. No splenomegaly. Adrenal glands: Normal. No mass. Kidneys and ureters: There are bilateral renal cysts measuring up to 17 mm on the left with a Hounsfield measurement of 7 consistent with simple cysts. No follow-up imaging is recommended. Stomach and bowel: There has been gastric bypass with collapse of the bypassed stomach and Sunil-en-Y in the left mid abdomen. There is some induration around the gastroenteric anastomosis suggesting some inflammation. There is slight diffuse wall thickening of the stomach which is not distended with question of some induration. Appendix: A normal appendix is seen. Intraperitoneal space: Unremarkable. No free air. No significant fluid collection. Vasculature: There is mild calcification of the abdominal aorta with extension into the iliac arteries. There is slight ectasia of the infrarenal aorta measuring up to 2.7 cm in diameter. Lymph nodes: Unremarkable. No enlarged lymph nodes. Urinary bladder: Unremarkable as visualized. Reproductive: Unremarkable as visualized. Bones/joints: Unremarkable. No acute fracture. Soft tissues: Unremarkable. IMPRESSION: 1. Status post gastric bypass with induration of fat around the gastroenteric anastomosis suggesting some inflammation. There is also slight wall thickening of the collapsed stomach with some adjacent shared induration along the anterior aspect which is primarily centered on the gastroenteric anastomosis. Gastritis is not excluded. 2. Probable fatty infiltration of the liver. 3. Otherwise negative CT abdomen/pelvis. ] MICROBIOLOGY: Please see below. ASSESSMENT/PLAN: 1. [Abdominal pain/melena - Patient is stool occult positive in ED. Along with ct scan and patients history, Etiology of current symptoms is ulceration vs. h pylori infection vs. malignancy. - We will begin iv protonix, carafate, zofran for nausea - Will trend h/h, type and screen ordered - Day team should strongly consider gi consult for EGD 2. Hyperkalemia - Patient has K of 5.1 in ed, however lab notes that specimen is partially hemolyzed. We will redraw. 3. Leukocytosis - Seems inflammatory at this time. Patient has no fevers, does not meet sirs criteria for sepsis. 4. A-fib - will hold at home xarelto for now as patient is having some sort of gi bleed - will continue metoprolol for rate control - patient has had good rates while in ed, will place on telemetry to make sure that her heart rate does not increase 5. RA - continue hydroxychloroquine 6. depression - continue zoloft 7. DVT prophylaxis - no anticoagulation due to gi bleed. teds and sequentials]. Vital Signs Vital Signs Date Time Temp Pulse Resp B/P (MAP) Pulse Ox O2 Delivery O2 Flow Rate FiO2 01/25/21 01:35 97.9 82 18 139/77 (97) 99 Room Air Laboratory Data Labs 24H Laboratory Tests 2 01/24/21 19:54: Immature Granulocyte % (Auto) 0.3, Neutrophils (%) (Auto) 78.8H, Lymphocytes (%) (Auto) 12.7L, Monocytes (%) (Auto) 7.5, Eosinophils (%) (Auto) 0.2, Basophils (%) (Auto) 0.5, Neutrophils # (Auto) 9.8H, Lymphocytes # (Auto) 1.6, Monocytes # (Auto) 0.9H, Eosinophils # (Auto) 0.0, Basophils # (Auto) 0.1, Nucleated Red Blood Cells % (auto) 0.0, Prothrombin Time 14.9H, Prothromb Time International Ratio 1.15, Activated Partial Thromboplast Time 25.6, Anion Gap 4L, Glomerular Filtration Rate > 60.0, Calcium Level 10.1, Total Bilirubin 0.8, Direct Bilirubin 0.1, Aspartate Amino Transf (AST/SGOT) 23, Alanine Aminotransferase (ALT/SGPT) 20, Alkaline Phosphatase 85, Total Protein 6.8, Albumin 3.7, Albumin/Globulin Ratio 1.2, Lipase 80, Ethyl Alcohol Level < 0.003 01/24/21 21:32: Coronavirus (COVID-19)(PCR) NEGATIVE, Influenza Type A (RT-PCR) NEGATIVE, Influenza Type B (RT-PCR) NEGATIVE, Respiratory Syncytial Virus (PCR) NEGATIVE CBC/BMP Laboratory Tests 01/24/21 19:54 Home Medications Scheduled Ascorbic Acid (Vitamin C) 500 Mg Tablet, 500 MG PO DAILY Ferrous Sulfate (Ferrous Sulfate) 325 Mg Tablet, 325 MG PO DAILY Hydroxychloroquine Sulfate (Hydroxychloroquine Sulfate) 200 Mg Tablet, 200 MG PO DAILY Metoprolol Succinate (Toprol Xl) 25 Mg Tab.er.24h, 25 MG PO DAILY TAKES AT NOON Multivitamins (Thera M Plus Tablet) 1 Each Tablet, 1 TAB PO DAILY HAS NOT STARTED YET Rivaroxaban (Xarelto) 20 Mg Tab, 20 MG PO QHS Sertraline HCl (Sertraline HCl) 50 Mg Tablet, 50 MG PO DAILY Scheduled PRN Fluticasone Propionate (Flonase Allergy Relief) 9.9 Ml [place].susp, 1 SPRAY NA BID PRN for NASAL CONGESTION Allergies Coded Allergies: No Known Allergies (Unverified , 03/24/19) A-FIB/CHADSVASC A-FIB History Current/History of A-Fib/PAF?: Yes Current PO Anticoag Therapy: No Treatment Reason Anticoagulant not given: Current bleeding Attending Note Attending Note time of service 125am Ms. Shirley is a 70 yr old w a hx of gastricbypass, gastric ulcers, Afib, RA who presented w c/o melena possibly 2/2 UGIB. - f/u Hg / will ask the day time team to consider consulting Dr.Reindl Leyva per GARY Saldivar&P CHARLES HUNT Jan 25, 2021 02:28 BOBBY RODRÍGUEZ MD Jan 25, 2021 06:53
[2021-01-25] MEDS: SUCRALFATE 1 GM TAB PO SCH ×3 (02:52→20:59)
[2021-01-25] MEDS: DOCUSATE SODIUM 100MG CAPSULE PO SCH ×3 (02:52→20:59)
[2021-01-25] MEDS: NS 1,000 ML IV SCH ×4 (02:52→22:26)
[2021-01-25 02:57] LABS: HEMATOCRIT 34.8 % (36.0-47.0); HEMOGLOBIN 11.8 g/dl (12.0-15.5); MEAN CORPUSCULAR HEMOGLOBIN 33.4 pg (27.0-33.0); MEAN CORPUSCULAR HGB CONC 33.9 g/dl (32.0-36.5); MEAN CORPUSCULAR VOLUME 98.6 fl (80.0-96.0); PLATELET COUNT, AUTOMATED 232 10^3/uL (150-450); RED BLOOD COUNT 3.53 10^6/uL (4.00-5.40); WHITE BLOOD COUNT 10.7 10^3/uL (4.0-10.0)
[2021-01-25 06:00] VITALS: BP 136/64
[2021-01-25] MEDS: HYDROXYCHLOROQUINE 200 MG TAB PO SCH (08:40)
[2021-01-25] MEDS: PANTOPRAZOLE 40MG VIAL (C9113 PER 1) IV SCH ×2 (08:40→20:59)
[2021-01-25] MEDS: SERTRALINE HCL 50 MG TAB PO SCH (08:40)
[2021-01-25] MEDS: ASCORBIC ACID 500 MG TAB PO SCH (08:40)
[2021-01-25] MEDS: FERROUS SULFATE 325MG TAB PO SCH (08:40)
[2021-01-25] MEDS: MULTIVITAMINS/MINERALS THERAP 1 TAB PO SCH (08:40)
[2021-01-25 11:02] LABS: HEMATOCRIT 32.4 % (36.0-47.0); HEMOGLOBIN 10.7 g/dl (12.0-15.5); MEAN CORPUSCULAR HEMOGLOBIN 32.6 pg (27.0-33.0); MEAN CORPUSCULAR VOLUME 98.8 fl (80.0-96.0); PLATELET COUNT, AUTOMATED 206 10^3/uL (150-450); RED BLOOD COUNT 3.28 10^6/uL (4.00-5.40); WHITE BLOOD COUNT 9.3 10^3/uL (4.0-10.0)
[2021-01-25] MEDS: METOPROLOL SUCC *XL* 25MG TAB (TopROL *XL*) PO SCH (12:06)
[2021-01-25 12:35] LABS: BLOOD UREA NITROGEN 13 MG/DL (7-18); CALCIUM LEVEL 8.3 MG/DL (8.8-10.2); CARBON DIOXIDE LEVEL 31 MEQ/L (21-32); CHLORIDE LEVEL 109 MEQ/L (98-107); CREATININE FOR GFR 0.61 MG/DL (0.55-1.30); GLOMERULAR FILTRATION RATE > 60.0 (>45); GLUCOSE, FASTING 101 MG/DL (70-100); POTASSIUM SERUM 3.6 MEQ/L (3.5-5.1); SODIUM LEVEL 142 MEQ/L (136-145)
[2021-01-25 14:00] VITALS: BP 127/69
[2021-01-25 18:00] LABS: HEMATOCRIT 30.8 % (36.0-47.0); HEMOGLOBIN 10.2 g/dl (12.0-15.5); MEAN CORPUSCULAR HEMOGLOBIN 33.1 pg (27.0-33.0); MEAN CORPUSCULAR HGB CONC 33.1 g/dl (32.0-36.5); PLATELET COUNT, AUTOMATED 203 10^3/uL (150-450); RED BLOOD COUNT 3.08 10^6/uL (4.00-5.40); WHITE BLOOD COUNT 7.8 10^3/uL (4.0-10.0)
[2021-01-25 22:00] VITALS: BP 131/61
[2021-01-26 02:23] LABS: HEMATOCRIT 28.2 % (36.0-47.0); HEMOGLOBIN 9.5 g/dl (12.0-15.5); MEAN CORPUSCULAR HEMOGLOBIN 33.7 pg (27.0-33.0); MEAN CORPUSCULAR HGB CONC 33.7 g/dl (32.0-36.5); PLATELET COUNT, AUTOMATED 189 10^3/uL (150-450); RED BLOOD COUNT 2.82 10^6/uL (4.00-5.40); WHITE BLOOD COUNT 6.2 10^3/uL (4.0-10.0)
[2021-01-26] MEDS: NS 1,000 ML IV SCH ×3 (04:39→17:37)
[2021-01-26 06:00] VITALS: BP 124/62
[2021-01-26 06:07] LABS: HEMATOCRIT 29.3 % (36.0-47.0); HEMOGLOBIN 9.6 g/dl (12.0-15.5); MEAN CORPUSCULAR HEMOGLOBIN 32.8 pg (27.0-33.0); MEAN CORPUSCULAR HGB CONC 32.8 g/dl (32.0-36.5); PLATELET COUNT, AUTOMATED 200 10^3/uL (150-450); RED BLOOD COUNT 2.93 10^6/uL (4.00-5.40); WHITE BLOOD COUNT 6.3 10^3/uL (4.0-10.0)
[2021-01-26 06:29] LABS: ALBUMIN 2.9 GM/DL (3.2-5.2); ALT/SGPT 21 U/L (12-78); BILIRUBIN,TOTAL 0.7 MG/DL (0.2-1.0); BLOOD UREA NITROGEN 8 MG/DL (7-18); CALCIUM LEVEL 8.1 MG/DL (8.8-10.2); CARBON DIOXIDE LEVEL 29 MEQ/L (21-32); CHLORIDE LEVEL 114 MEQ/L (98-107); CREATININE FOR GFR 0.54 MG/DL (0.55-1.30); GLOMERULAR FILTRATION RATE > 60.0 (>45); GLUCOSE, FASTING 85 MG/DL (70-100); MAGNESIUM LEVEL 2.2 MG/DL (1.8-2.4); SODIUM LEVEL 148 MEQ/L (136-145); TOTAL PROTEIN 5.2 GM/DL (6.4-8.2)
[2021-01-26] MEDS: DOCUSATE SODIUM 100MG CAPSULE PO SCH ×3 (09:00→20:50)
[2021-01-26] MEDS: PANTOPRAZOLE 40MG VIAL (C9113 PER 1) IV SCH ×2 (09:01→20:51)
[2021-01-26] MEDS: MULTIVITAMINS/MINERALS THERAP 1 TAB PO SCH (09:02)
[2021-01-26] MEDS: SERTRALINE HCL 50 MG TAB PO SCH (09:02)
[2021-01-26] MEDS: HYDROXYCHLOROQUINE 200 MG TAB PO SCH (09:02)
[2021-01-26] MEDS: FERROUS SULFATE 325MG TAB PO SCH (09:02)
[2021-01-26] MEDS: ASCORBIC ACID 500 MG TAB PO SCH (09:02)
[2021-01-26] MEDS: SUCRALFATE 1 GM TAB PO SCH ×2 (09:02→20:50)
[2021-01-26 10:08] LABS: HEMATOCRIT 31.1 % (36.0-47.0); HEMOGLOBIN 10.3 g/dl (12.0-15.5); MEAN CORPUSCULAR HEMOGLOBIN 33.3 pg (27.0-33.0); MEAN CORPUSCULAR HGB CONC 33.1 g/dl (32.0-36.5); MEAN CORPUSCULAR VOLUME 100.6 fl (80.0-96.0); PLATELET COUNT, AUTOMATED 227 10^3/uL (150-450); RED BLOOD COUNT 3.09 10^6/uL (4.00-5.40); WHITE BLOOD COUNT 8.3 10^3/uL (4.0-10.0)
--- NOTE | 2021-01-26 12:43 | IPNPDOC ---
Text Note Date of Service The patient was seen on 01/26/21. NOTE Subjective: Patient is seen and examined this morning at bedside. Patient tells me she continues to have black stools. She feels well otherwise she doesn't have shortness of breath chest pain. No other obvious bleeding. No acute overnight events. Plan for EGD tomorrow with Dr. Quintanlila Objective: Constitutional: Awake and alert, in no apparent distress ENT: Sclera are clear. Mucosa is moist. Respiratory: Lungs CTA bilaterally. No respiratory distress. Cardiovascular: RRR S1 and S2 are normal, no murmur Gastrointestinal: Abdomen is soft, non distended, non tender, BS present. Musculoskeletal: No peripheral edema Neurologic: No focal neurological deficit. Mental Status: A&O x3, normal affect Skin: Warm, dry Assessment/plan: 62-year-old female presented with melena hemoglobin stable plan for EGD. # Abdominal pain/melena: Abdominal pain has resolved. The left persists. EGD January 27. GI Dr. Quintanilla consulted. IV PPI, Carafate. He will open his been stable. # A-fib: Hold Xarelto in the setting of suspected upper GI bleed. Continue metoprolol for rate control. # RA continue hydroxychloroquine # depression continue zoloft # DVT prophylaxis: No itchy coagulation due to suspected GI bleed. luis and payam Patel Hospitalist Jose YO, I+O Jose YO I+O Laboratory Tests 01/25/21 17:51 01/26/21 02:15 01/26/21 05:24 01/26/21 09:53 Vital Signs Date Time Temp Pulse Resp B/P (MAP) Pulse Ox O2 Delivery O2 Flow Rate FiO2 01/26/21 06:00 97.6 65 18 124/62 (82) 100 Room Air I&O- Last 24 Hours up to 6 AM 01/26/21 06:00 Intake Total 3900 ml Output Total 850 ml Balance 3050 ml JOHAN PATEL MD Jan 26, 2021 12:43
[2021-01-26 13:32] VITALS: BP 120/63
[2021-01-26] MEDS: METOPROLOL SUCC *XL* 25MG TAB (TopROL *XL*) PO SCH (13:32)
[2021-01-26 14:00] VITALS: BP 124/60
[2021-01-26 17:58] LABS: HEMATOCRIT 29.2 % (36.0-47.0); HEMOGLOBIN 9.6 g/dl (12.0-15.5); MEAN CORPUSCULAR HEMOGLOBIN 33.2 pg (27.0-33.0); MEAN CORPUSCULAR HGB CONC 32.9 g/dl (32.0-36.5); PLATELET COUNT, AUTOMATED 199 10^3/uL (150-450); RED BLOOD COUNT 2.89 10^6/uL (4.00-5.40); WHITE BLOOD COUNT 7.2 10^3/uL (4.0-10.0)
[2021-01-26 22:00] VITALS: BP 124/61
[2021-01-27] MEDS: NS 1,000 ML IV SCH ×3 (00:01→13:19)
[2021-01-27 02:34] LABS: HEMATOCRIT 27.5 % (36.0-47.0); MEAN CORPUSCULAR HEMOGLOBIN 33.1 pg (27.0-33.0); MEAN CORPUSCULAR HGB CONC 32.7 g/dl (32.0-36.5); MEAN CORPUSCULAR VOLUME 101.1 fl (80.0-96.0); PLATELET COUNT, AUTOMATED 204 10^3/uL (150-450); RED BLOOD COUNT 2.72 10^6/uL (4.00-5.40); WHITE BLOOD COUNT 7.1 10^3/uL (4.0-10.0)
[2021-01-27 06:00] VITALS: BP 128/69
[2021-01-27 06:47] LABS: BLOOD UREA NITROGEN 4 MG/DL (7-18); CALCIUM LEVEL 8.9 MG/DL (8.8-10.2); CARBON DIOXIDE LEVEL 30 MEQ/L (21-32); CHLORIDE LEVEL 113 MEQ/L (98-107); CREATININE FOR GFR 0.61 MG/DL (0.55-1.30); GLOMERULAR FILTRATION RATE > 60.0 (>45); GLUCOSE, FASTING 100 MG/DL (70-100); POTASSIUM SERUM 3.9 MEQ/L (3.5-5.1); SODIUM LEVEL 147 MEQ/L (136-145)
[2021-01-27 08:00] VITALS: BP_SYST 124; BP_SYST 126; BP_DIAS 70
[2021-01-27] MEDS: FERROUS SULFATE 325MG TAB PO SCH (08:46)
[2021-01-27] MEDS: SUCRALFATE 1 GM TAB PO SCH (08:46)
[2021-01-27] MEDS: ASCORBIC ACID 500 MG TAB PO SCH (08:46)
[2021-01-27] MEDS: HYDROXYCHLOROQUINE 200 MG TAB PO SCH (08:47)
[2021-01-27] MEDS: MULTIVITAMINS/MINERALS THERAP 1 TAB PO SCH (08:47)
[2021-01-27] MEDS: SERTRALINE HCL 50 MG TAB PO SCH (08:47)
[2021-01-27] MEDS: DOCUSATE SODIUM 100MG CAPSULE PO SCH (08:48)
--- NOTE | 2021-01-27 09:59 | IPNPDOC ---
Text Note Date of Service The patient was seen on 01/27/21. NOTE Subjective: Patient is seen and examined this morning at bedside. Patient tells me she didn't notice black stools during her last bowel movement. She feels well otherwise she doesn't have shortness of breath chest pain. No other obvious bleeding. No acute overnight events. Plan for EGD this afternoon with Dr. Quintanilla Objective: Constitutional: Awake and alert, in no apparent distress ENT: Sclera are clear. Mucosa is moist. Respiratory: Lungs CTA bilaterally. No respiratory distress. Cardiovascular: RRR S1 and S2 are normal, no murmur Gastrointestinal: Abdomen is soft, non distended, non tender, BS present. Musculoskeletal: No peripheral edema Neurologic: No focal neurological deficit. Mental Status: A&O x3, normal affect Skin: Warm, dry Assessment/plan: 62-year-old female presented with melena hemoglobin stable plan for EGD. # Abdominal pain/melena: Abdominal pain resolved. Denies black stools today. EGD January 27. GI Dr. Quintanilla consulted. IV PPI, Carafate. Her hemoglobin has been stable. # A-fib: Hold Xarelto in the setting of suspected upper GI bleed until after EGD is completed. Continue metoprolol for rate control. # RA continue hydroxychloroquine # depression continue zoloft # DVT prophylaxis: No anti coagulation due to suspected GI bleed. luis and payam Patel Hospitalist Jose YO I+O Jose YO I+O Laboratory Tests 01/26/21 17:47 01/27/21 02:16 01/27/21 05:23 Vital Signs Date Time Temp Pulse Resp B/P (MAP) Pulse Ox O2 Delivery O2 Flow Rate FiO2 01/27/21 06:00 98.4 62 18 128/69 (88) 98 01/26/21 14:00 Room Air I&O- Last 24 Hours up to 6 AM 01/27/21 06:00 Intake Total 3940 ml Output Total 300 ml Balance 3640 ml JOHAN PATEL MD Jan 27, 2021 09:59
[2021-01-27] MEDS: PANTOPRAZOLE 40MG VIAL (C9113 PER 1) IV SCH (10:02)
[2021-01-27 10:15] LABS: HEMATOCRIT 29.9 % (36.0-47.0); HEMOGLOBIN 9.7 g/dl (12.0-15.5); MEAN CORPUSCULAR HEMOGLOBIN 32.8 pg (27.0-33.0); MEAN CORPUSCULAR HGB CONC 32.4 g/dl (32.0-36.5); PLATELET COUNT, AUTOMATED 235 10^3/uL (150-450); RED BLOOD COUNT 2.96 10^6/uL (4.00-5.40); WHITE BLOOD COUNT 7.2 10^3/uL (4.0-10.0)
[2021-01-27] MEDS: METOPROLOL SUCC *XL* 25MG TAB (TopROL *XL*) PO SCH (11:32)
[2021-01-27 14:00] VITALS: BP 143/76
[2021-01-27] MEDS ORDERED: propofoL 200 MG/20 ML VIAL As Ordered ONE (14:18)
[2021-01-27] MEDS ORDERED: LIDOCAINE 2% 100MG/5ML SDV (FOR ANES.) As Ordered ONE (14:19)
[2021-01-27] MEDS ORDERED: fentaNYL 100 MCG/2 ML INJECTION (J3010) As Ordered ONE (14:20)
[2021-01-27 14:34] VITALS: BP 135/73
--- NOTE | 2021-01-27 14:53 | ROOR ---
Patient Name: Kelly Shirley Procedure Date: 01/27/2021 2:19 PM Date of : 1950 Age: 70 Room: [facility] Gender: Female Note Status: Finalized Procedure: Upper GI endoscopy Indications: Melena, Abnormal CT of the GI tract Providers: Mario QUINTANILLA MD Referring MD: 2. Inpatient 2. Inpatient, Halina Arrieta Requesting Provider: Medicines: Monitored Anesthesia Care Complications: No immediate complications. Procedure: Pre-Anesthesia Assessment: - The heart rate, respiratory rate, oxygen saturations, blood pressure, adequacy of pulmonary ventilation, and response to care were monitored throughout the procedure. The Endoscope was introduced through the mouth, and advanced to the second part of duodenum. The upper GI endoscopy was accomplished without difficulty. The patient tolerated the procedure well. Findings: The examined esophagus was normal. Evidence of a Sunil-en-Y gastrojejunostomy was found. The gastrojejunal anastomosis was characterized by ulceration. This was traversed. Two non-bleeding cratered gastric ulcers with no stigmata of bleeding were found at the anastomosis. The largest lesion was 8 mm in largest dimension. This was biopsied with a cold forceps for histology. The examined jejunum was normal. Impression: - Normal esophagus. - Sunil-en-Y gastrojejunostomy with gastrojejunal anastomosis characterized by 2 Non-bleeding anastomotic ulcers with no stigmata of bleeding. Biopsied. - Normal examined jejunum. Recommendation: - Use a proton pump inhibitor PO daily indefinitely. - Use sucralfate suspension 1 gram PO QID for 2 months. - Ok to Resume Xarelto. - Return to primary care physician as previously scheduled. - You do not need a routine follow up visit with me. Procedure Code(s): --- Professional --- 57677, Esophagogastroduodenoscopy, flexible, transoral; with biopsy, single or multiple Diagnosis Code(s): --- Professional --- Z98.0, Intestinal bypass and anastomosis status K25.9, Gastric ulcer, unspecified as acute or chronic, without hemorrhage or perforation K92.1, Melena (includes Hematochezia) R93.3, Abnormal findings on diagnostic imaging of other parts of digestive tract CPT copyright 2019 [employer]. All rights reserved. The codes documented in this report are preliminary and upon software licensing specialist review may be revised to meet current compliance requirements. Mario Quintanilla MD Mario QUINTANILLA MD 01/27/2021 2:52:42 PM Electronically signed by Mario QUINTANILLA MD Number of Addenda: 0 Note Initiated On: 01/27/2021 2:19 PM Estimated Blood Loss: Estimated blood loss: none.
[2021-01-27] MEDS ORDERED: PROT1TAB2 PO (15:45)
[2021-01-27] MEDS ORDERED: SUCR1TA PO (15:45)
--- NOTE | 2021-01-27 15:54 | DS.PDOC ---
Discharge Summary General Date of Admission Jan 25, 2021 at 11:39 Date of Discharge 01/27/21 Discharge Summary PROCEDURES PERFORMED DURING STAY: EGD ADMITTING DIAGNOSES: Melena DISCHARGE DIAGNOSES: Melena secondary to 2 nonbleeding and anastomotic ulcers COMPLICATIONS/CHIEF COMPLAINT: Chronic Afib,Upper Gi Bleed,Gastric Bypass Stat. HISTORY OF PRESENT ILLNESS/HOSPITAL COURSE: Patient is admitted because of black stools. Suspected to have an upper GI bleed. She was scheduled for an EGD which was completed on 01/27/2021 revealing 2 nonbleeding ulcers. Hemoglobin has been stable. Melena appears to have resolved. Dr. Socorro HOWELL recommends PPI for life daily as well as Carafate 4 times daily for 2 months. No need for follow-up with GI. Follow-up with PCP within a week of discharge. Okay to resume Xarelto for atrial fibrillation. DISCHARGE MEDICATIONS: Please see below. ALLERGIES: Please see below. PHYSICAL EXAMINATION ON DISCHARGE: VITAL SIGNS: Please see below. Constitutional: Awake and alert, in no apparent distress ENT: Sclera are clear. Mucosa is moist. Respiratory: Lungs CTA bilaterally. No respiratory distress. Cardiovascular: RRR S1 and S2 are normal, no murmur Gastrointestinal: Abdomen is soft, non distended, non tender, BS present. Musculoskeletal: No peripheral edema Neurologic: No focal neurological deficit. Mental Status: A&O x3, normal affect Skin: Warm, dry LABORATORY DATA: Please see below. IMAGING: See chart PROGNOSIS: Fair ACTIVITY: [As tolerated]. DIET: Regular diet DISPOSITION: Home DISCHARGE INSTRUCTIONS: Please follow up with your primary care physician within 1 week from discharge. If you do not have one, please follow up with us to schedule an appointment. Please keep all of your follow up appointments. Please call central to book your appointments with hospital specialists. Please take all your medications as prescribed. Please call/come to Clinic or go to the Emergency Department if - Temp >101, intractable Nausea/Vomiting, Diarrhea, Mouth sores, Headaches, Altered mental status, Seizures, sudden onset of swelling, bleeding, shortness of breath or chest pain. ITEMS TO FOLLOWUP ON ON OUTPATIENT: Follow-up with primary care physician within a week of discharge DISCHARGE CONDITION: [Stable]. TIME SPENT ON DISCHARGE: 35 minutes. Vital Signs/I&Os Vital Signs Date Time Temp Pulse Resp B/P (MAP) Pulse Ox O2 Delivery O2 Flow Rate FiO2 3/25/21 14:34 96.9 65 20 135/73 (93) 99 Room Air I&O- Last 24 Hours up to 6 AM 01/27/21 06:00 Intake Total 3940 ml Output Total 300 ml Balance 3640 ml Laboratory Data Labs 24H Laboratory Tests 2 01/26/21 17:47: Nucleated Red Blood Cells % (auto) 0.0 01/27/21 02:16: Nucleated Red Blood Cells % (auto) 0.0 01/27/21 05:23: Anion Gap 4L, Glomerular Filtration Rate > 60.0, Calcium Level 8.9 01/27/21 10:01: Nucleated Red Blood Cells % (auto) 0.0 CBC/BMP Laboratory Tests 01/26/21 17:47 01/27/21 02:16 01/27/21 05:23 01/27/21 10:01 Discharge Medications Scheduled Ascorbic Acid (Vitamin C) 500 Mg Tablet, 500 MG PO DAILY, (Reported) Ferrous Sulfate (Ferrous Sulfate) 325 Mg Tablet, 325 MG PO DAILY, (Reported) Hydroxychloroquine Sulfate (Hydroxychloroquine Sulfate) 200 Mg Tablet, 200 MG PO DAILY, (Reported) Metoprolol Succinate (Toprol Xl) 25 Mg Tab.er.24h, 25 MG PO DAILY, (Reported) TAKES AT NOON Multivitamins (Thera M Plus Tablet) 1 Each Tablet, 1 TAB PO DAILY, (Reported) HAS NOT STARTED YET Pantoprazole Sodium (Protonix) 40 Mg Tablet.dr, 40 MG PO DAILY Rivaroxaban (Xarelto) 20 Mg Tab, 20 MG PO QHS, (Reported) Sertraline HCl (Sertraline HCl) 50 Mg Tablet, 50 MG PO DAILY, (Reported) Sucralfate (Sucralfate) 1 Gm Tablet, 1 GM PO QID Scheduled PRN Fluticasone Propionate (Flonase Allergy Relief) 9.9 Ml [place].susp, 1 SPRAY NA BID PRN for NASAL CONGESTION, (Reported) Allergies Coded Allergies: No Known Allergies (Unverified , 03/24/19) JOHAN PATEL MD Jan 27, 2021 15:54
== END 2021-01-27 16:59 | disposition home or self-care (01) | DRG 394 ==
LOC: M ED 19:35 → INTOOBSV 01-25 01:16 → M ED INP 01-25 01:16 → ENRESERV 01-25 01:54 → M MSPAV 01-25 02:24 → OBSVTOIN 01-25 11:39
PROVIDERS: ADMIT Internal Medicine; ATTEND Family Medicine
PROC: 0DBA8ZX Excision of Jejunum, Via Natural or Artificial Opening Endoscopic, Diagnostic (ICD-10-PCS; principal; 2021-01-27 13:00)
DX: K91.89 Other postprocedural complications and disorders of digestive system (principal); K92.1 Melena; I48.20 Chronic atrial fibrillation, unspecified; E87.5 Hyperkalemia; K28.9 Gastrojejunal ulcer, unspecified as acute or chronic, without hemorrhage or perforation; M06.9 Rheumatoid arthritis, unspecified; F32.9 Major depressive disorder, single episode, unspecified; Z98.84 Bariatric surgery status; Z95.0 Presence of cardiac pacemaker; Z20.822 Contact with and (suspected) exposure to COVID-19; Z79.01 Long term (current) use of anticoagulants; Z79.899 Other long term (current) drug therapy

== ENCOUNTER → 2021-02-10 | Outpatient (REF) | payer MEDICARE, MEDICAID ==
[~2021-02-10] MED LIST changes: +C 50TAB PO; +FERR1TAB8 PO; +FLON1SPR; +HYDR200T3 PO; +PROT1TAB2 PO; +SERT50TA29 PO; +TOPR25TA PO
[2021-02-10 13:59] LABS: HEMATOCRIT 29.8 % (36.0-47.0); HEMOGLOBIN 9.3 g/dl (12.0-15.5); MEAN CORPUSCULAR HEMOGLOBIN 31.6 pg (27.0-33.0); MEAN CORPUSCULAR HGB CONC 31.2 g/dl (32.0-36.5); MEAN CORPUSCULAR VOLUME 101.4 fl (80.0-96.0); PLATELET COUNT, AUTOMATED 308 10^3/uL (150-450); RED BLOOD COUNT 2.94 10^6/uL (4.00-5.40)
[2021-02-10 14:29] LABS: BLOOD UREA NITROGEN 9 MG/DL (7-18); CALCIUM LEVEL 8.9 MG/DL (8.8-10.2); CARBON DIOXIDE LEVEL 29 MEQ/L (21-32); CHLORIDE LEVEL 113 MEQ/L (98-107); CREATININE FOR GFR 0.63 MG/DL (0.55-1.30); FERRITIN 14 NG/ML (8-252); GLOMERULAR FILTRATION RATE > 60.0 (>45); GLUCOSE, FASTING 85 MG/DL (70-100); SODIUM LEVEL 145 MEQ/L (136-145)
[2021-02-10 14:36] LABS: TOTAL 25(OH) VITAMIN D 22.2 NG/ML (30.0-100.0)
== END ==
LOC: M SFHCPLAZ 10:18
PROVIDERS: ATTEND Nurse Practitioner Family
DX: K92.2 Gastrointestinal hemorrhage, unspecified (principal); R35.0 Frequency of micturition; I48.91 Unspecified atrial fibrillation; E55.9 Vitamin D deficiency, unspecified
CPT/HCPCS: 36415; 80048; 82306; 82728; 85027; G0463

== ENCOUNTER → 2021-02-14 | Outpatient (REF) | payer MEDICARE, MEDICAID | LOC: M SFHCPLAZ 13:40 | PROVIDERS: ATTEND Nurse Practitioner Family | DX: R35.0 Frequency of micturition (principal) ==

== ENCOUNTER → 2021-02-22 | Outpatient (REF) | payer MEDICARE, MEDICAID ==
[2021-02-22 14:51] LABS: APPEARANCE, URINE CLEAR (CLEAR); BACTERIA, URINE AUTO NEGATIVE (NEGATIVE); BILIRUBIN, URINE AUTO NEGATIVE (NEGATIVE); BLOOD, URINE BLOOD NEGATIVE (NEGATIVE); COLOR, URINE YELLOW (YELLOW); GLUCOSE, URINE (UA) AUTO NEGATIVE (NEGATIVE); KETONE, URINE AUTO NEGATIVE (NEGATIVE); LEUKOCYTE ESTERASE, URINE AUTO 1+ (NEGATIVE); MUCUS, URINE SMALL (NEGATIVE); NITRITE, URINE AUTO NEGATIVE (NEGATIVE); PROTEIN, URINE AUTO NEGATIVE (NEGATIVE); RBC, URINE AUTO 1 /HPF (0-3); SPECIFIC GRAVITY URINE AUTO 1.006 (1.002-1.035); SQUAMOUS EPITHELIAL CELL UR AU 1 /HPF (0-6); UROBILINOGEN, URINE AUTO 0.2 mg/dL (0.0-2.0); WBC, URINE AUTO 2 /HPF (0-3)
== END ==
LOC: M SFHCPLAZ 13:33
PROVIDERS: ATTEND Nurse Practitioner Family
DX: R35.0 Frequency of micturition (principal)

== ENCOUNTER 2021-03-21 16:11 | Emergency (ER) | payer MEDICARE, MEDICAID ==
[~2021-03-21] VITALS: Ht 165.1 cm; Wt 60.9 kg
[2021-03-21 17:47] LABS: BASO # 0.1 10^3/uL (0.0-0.2); BASO % 0.7 % (0.0-1.0); EOS # 0.1 10^3/uL (0.0-0.5); EOS % 0.7 % (0.0-3.0); HEMATOCRIT 36.3 % (36.0-47.0); HEMOGLOBIN 10.7 g/dl (12.0-15.5); LYMPH # 1.9 10^3/uL (1.5-5.0); LYMPH % 20.7 % (24.0-44.0); MEAN CORPUSCULAR HGB CONC 29.5 g/dl (32.0-36.5); MEAN CORPUSCULAR VOLUME 91.7 fl (80.0-96.0); MONO # 0.7 10^3/uL (0.0-0.8); NEUTROPHILS # 6.4 10^3/uL (1.5-8.5); NEUTROPHILS % 69.5 % (36.0-66.0); PLATELET COUNT, AUTOMATED 433 10^3/uL (150-450); RED BLOOD COUNT 3.96 10^6/uL (4.00-5.40); WHITE BLOOD COUNT 9.2 10^3/uL (4.0-10.0)
[2021-03-21 18:02] LABS: INR 1.12; PARTIAL THROMBOPLASTIN TIME 26.4 SECONDS (24.2-38.5); PROTHROMBIN TIME 14.7 SECONDS (12.5-14.3)
[2021-03-21 18:10] LABS: ALBUMIN 3.6 GM/DL (3.2-5.2); ALT/SGPT 18 U/L (12-78); BILIRUBIN,DIRECT 0.2 MG/DL (0.0-0.2); BILIRUBIN,TOTAL 0.4 MG/DL (0.2-1.0); BLOOD UREA NITROGEN 19 MG/DL (7-18); CALCIUM LEVEL 9.9 MG/DL (8.8-10.2); CARBON DIOXIDE LEVEL 27 MEQ/L (21-32); CHLORIDE LEVEL 106 MEQ/L (98-107); CREATININE FOR GFR 0.89 MG/DL (0.55-1.30); GLOMERULAR FILTRATION RATE > 60.0 (>45); GLUCOSE, FASTING 86 MG/DL (70-100); LIPASE 96 U/L (73-393); POTASSIUM SERUM 4.6 MEQ/L (3.5-5.1); SODIUM LEVEL 141 MEQ/L (136-145); TOTAL PROTEIN 7.2 GM/DL (6.4-8.2)
[2021-03-21] MEDS ORDERED: FAMO20TA PO (19:00)
[2021-03-21] MEDS ORDERED: MACR100C43 PO (19:00)
[2021-03-21] MEDS ORDERED: NITROFURANTOIN (MACROBID) 100 MG CAP PO ONE (19:00)
[2021-03-21 19:19] VITALS: BP 170/83
--- NOTE | 2021-03-22 06:02 | ECGEPIP ---
[facility] - ED Test Date: 2021-03-21 Pat Name: MARVIN JOHNSON Department: Room: - Gender: Female Breakdown Man: HANNAH : 1950 Requested By: Sultana Shah Order Number: [id number] Reading MD: Yoseph Corea Measurements Intervals [place] Rate: 77 P: DC: QRS: 58 QRSD: 74 T: -46 QT: 370 QTc: 418 Interpretive Statements Atrial fibrillation with frequent ventricular-paced complexes NSTTW ABNORMALITY(S) SIMILAR TO 09/03/17 Electronically Signed on 03-22-2021 6:02:14 EDT by Yoseph Corea
== END 2021-03-21 19:21 | disposition home or self-care (01) ==
LOC: M ED 16:11
DX: R11.0 Nausea (principal); E86.0 Dehydration; N39.0 Urinary tract infection, site not specified; R63.0 Anorexia; I48.91 Unspecified atrial fibrillation; K21.9 Gastro-esophageal reflux disease without esophagitis; Z79.899 Other long term (current) drug therapy; Z79.01 Long term (current) use of anticoagulants

== ENCOUNTER → 2021-05-09 | Outpatient (CLI) | payer MEDICARE, MEDICAID ==
[~2021-05-09] MED LIST changes: +FAMO20TA PO; +MACR100C43 PO
[2021-05-09 11:44] LABS: HEMATOCRIT 29.1 % (36.0-47.0); HEMOGLOBIN 8.2 g/dl (12.0-15.5); MEAN CORPUSCULAR HEMOGLOBIN 23.6 pg (27.0-33.0); MEAN CORPUSCULAR HGB CONC 28.2 g/dl (32.0-36.5); MEAN CORPUSCULAR VOLUME 83.6 fl (80.0-96.0); PLATELET COUNT, AUTOMATED 456 10^3/uL (150-450); RED BLOOD COUNT 3.48 10^6/uL (4.00-5.40); WHITE BLOOD COUNT 7.3 10^3/uL (4.0-10.0)
[2021-05-09 11:45] LABS: APPEARANCE, URINE CLOUDY (CLEAR); BACTERIA, URINE AUTO 1+ (NEGATIVE); BILIRUBIN, URINE AUTO NEGATIVE (NEGATIVE); BLOOD, URINE BLOOD NEGATIVE (NEGATIVE); COLOR, URINE AMBER (YELLOW); GLUCOSE, URINE (UA) AUTO NEGATIVE (NEGATIVE); KETONE, URINE AUTO TRACE mg/dL (NEGATIVE); LEUKOCYTE ESTERASE, URINE AUTO 3+ (NEGATIVE); MUCUS, URINE SMALL (NEGATIVE); NITRITE, URINE AUTO NEGATIVE (NEGATIVE); PROTEIN, URINE AUTO 1+ mg/dL (NEGATIVE); RBC, URINE AUTO 5 /HPF (0-3); SQUAMOUS EPITHELIAL CELL UR AU 12 /HPF (0-6); TRANSITIONAL EPITHELIAL AUTO 1 /HPF; WBC, URINE AUTO 38 /HPF (0-3)
[2021-05-09 12:25] LABS: BLOOD UREA NITROGEN 9 MG/DL (7-18); CALCIUM LEVEL 8.4 MG/DL (8.8-10.2); CARBON DIOXIDE LEVEL 29 MEQ/L (21-32); CHLORIDE LEVEL 109 MEQ/L (98-107); CREATININE FOR GFR 0.66 MG/DL (0.55-1.30); FERRITIN 6 NG/ML (8-252); FOLATE 13.9 NG/ML (>5.4); GLOMERULAR FILTRATION RATE > 60.0 (>45); GLUCOSE, FASTING 60 MG/DL (70-100); POTASSIUM SERUM 4.5 MEQ/L (3.5-5.1); SODIUM LEVEL 140 MEQ/L (136-145); TOTAL 25(OH) VITAMIN D 57.4 NG/ML (30.0-100.0); VITAMIN B12 LEVEL 411 PG/ML (247-911)
== END ==
LOC: M LAB 11:05
PROVIDERS: ATTEND Nurse Practitioner Family
DX: R35.0 Frequency of micturition (principal); D50.9 Iron deficiency anemia, unspecified

== ENCOUNTER → 2021-05-17 | Outpatient (CLI) | payer MEDICARE, MEDICAID ==
[~2021-05-17] MED LIST changes: +D31000TA2 PO; +FAMO20TA5 PO; +VITA500038 PO; +ZOFR4TAB16 PO; +[UNRECOGNIZED DRUG - CODE] PO; +vitamin d3 PO
[2021-05-17 10:54] LABS: HEMATOCRIT 30.3 % (36.0-47.0); HEMOGLOBIN 8.5 g/dl (12.0-15.5); MEAN CORPUSCULAR HEMOGLOBIN 22.7 pg (27.0-33.0); MEAN CORPUSCULAR HGB CONC 28.1 g/dl (32.0-36.5); MEAN CORPUSCULAR VOLUME 80.8 fl (80.0-96.0); PLATELET COUNT, AUTOMATED 442 10^3/uL (150-450); RED BLOOD COUNT 3.75 10^6/uL (4.00-5.40); WHITE BLOOD COUNT 7.3 10^3/uL (4.0-10.0)
== END ==
LOC: M LAB 09:30
PROVIDERS: ATTEND Nurse Practitioner Family
DX: D50.9 Iron deficiency anemia, unspecified (principal)

== ENCOUNTER 2021-05-26 08:28 | Outpatient (CLI) | payer MEDICARE, MEDICAID ==
[~2021-05-26] VITALS: Ht 167.6 cm; Wt 66.4 kg
[~2021-05-26 08:28] MED LIST changes: +ALBUTEROL SULFATE 2.5 MG/0.5 ML INH NEB SOLN INH PRN; -D31000TA2 PO; +EPINEPHrine INJ 1 MG/ML 1ML AMP IM PRN; -FAMO20TA5 PO; -VITA500038 PO; -ZOFR4TAB16 PO; -[UNRECOGNIZED DRUG - CODE] PO; +diphenhydrAMINE 50MG/ML VIAL (J1200) IV PRN; +methylPREDNISolone 125MG 2ML VIAL IV PRN; -vitamin d3 PO
[2021-05-26 08:53] VITALS: BP 133/61
[2021-05-26] MEDS ORDERED: NS 1,000 ML IV SCH (09:15)
[2021-05-26] MEDS ORDERED: IRON SUCROSE 25 MG in NS 25 ML IV ONE (09:30)
[2021-05-26] MEDS ORDERED: NS IV ONE (09:30)
[2021-05-26] MEDS ORDERED: IRON SUCROSE IV ONE (09:30)
[2021-05-26 10:40] VITALS: BP 116/61
[2021-05-26 11:10] VITALS: BP 131/67
[2021-05-26 11:40] VITALS: BP 120/67
[2021-05-26 11:43] VITALS: BP 132/71
== END 2021-05-26 11:55 | disposition home or self-care (01) ==
LOC: M INFU 08:28
PROVIDERS: ATTEND Nurse Practitioner Family
DX: D50.9 Iron deficiency anemia, unspecified (principal)
CPT/HCPCS: 96365; 96366; J1756

== ENCOUNTER → 2021-06-17 | Outpatient (CLI) | payer MEDICARE, MEDICAID ==
[~2021-06-17] MED LIST changes: -ALBUTEROL SULFATE 2.5 MG/0.5 ML INH NEB SOLN INH PRN; -EPINEPHrine INJ 1 MG/ML 1ML AMP IM PRN; +VITA500038 PO; +ZOFR4TAB16 PO; +[UNRECOGNIZED DRUG - CODE] PO; -diphenhydrAMINE 50MG/ML VIAL (J1200) IV PRN; -methylPREDNISolone 125MG 2ML VIAL IV PRN
== END ==
LOC: M LABSMTC 10:25
PROVIDERS: ATTEND Anesthesiology
DX: Z01.812 Encounter for preprocedural laboratory examination (principal); Z20.822 Contact with and (suspected) exposure to COVID-19

== ENCOUNTER → 2021-08-03 | Outpatient (CLI) | payer MEDICARE, MEDICAID | LOC: M LABSMTC 09:56 | PROVIDERS: ATTEND Anesthesiology | DX: Z01.812 Encounter for preprocedural laboratory examination (principal); Z20.822 Contact with and (suspected) exposure to COVID-19 ==

== ENCOUNTER 2021-08-08 10:29 | Day surgery (SDC) | payer MEDICARE, MEDICAID ==
[~2021-08-08] VITALS: Ht 167.6 cm; Wt 59.9 kg
[~2021-08-08 10:29] MED LIST changes: +NS 1,000 ML IV ONE
[2021-08-08] MEDS ORDERED: fentaNYL 100 MCG/2 ML INJECTION (J3010) As Ordered ONE (12:13)
[2021-08-08] MEDS ORDERED: LIDOCAINE 2% MDV 20ML VIAL As Ordered ONE (12:13)
[2021-08-08] MEDS ORDERED: propofoL 200 MG/20 ML VIAL As Ordered ONE (12:13)
--- NOTE | 2021-08-08 12:27 | ROOR ---
Patient Name: Kelly Shirley Procedure Date: 08/08/2021 12:07 PM Date of : 1950 Age: 70 Room: [facility] Gender: Female Note Status: Finalized Procedure: Upper GI endoscopy Indications: Unexplained iron deficiency anemia Providers: Tyrone Mathias MD Referring MD: Nohemi Leon NP Requesting Provider: Medicines: Monitored Anesthesia Care Complications: No immediate complications. Procedure: Pre-Anesthesia Assessment: - The heart rate, respiratory rate, oxygen saturations, blood pressure, adequacy of pulmonary ventilation, and response to care were monitored throughout the procedure. The Endoscope was introduced through the mouth, and advanced to the second part of duodenum. The upper GI endoscopy was accomplished without difficulty. The patient tolerated the procedure well. Findings: The Z-line was regular and was found 40 cm from the incisors. Evidence of a gastric bypass was found. A gastric pouch with a small size was found. The gastrojejunal anastomosis was characterized by ulceration. This was traversed. The vjszruvr-du-pfvfqmn limb was examined. The exam was otherwise without abnormality. Impression: - Z-line regular, 40 cm from the incisors. - Gastric bypass with a small-sized pouch. Gastrojejunal anastomosis characterized by ulceration. - The examination was otherwise normal. - No specimens collected. - The examination was otherwise normal. Recommendation: - Patient has a contact number available for emergencies. The signs and symptoms of potential delayed complications were discussed with the patient. Return to normal activities tomorrow. Written discharge instructions were provided to the patient. - Resume previous diet. - Discharge patient to home. - Continue present medications. - Refer to a surgeon at appointment to be scheduled. - Resume Xarelto (rivaroxaban) at prior dose tomorrow. - The findings and recommendations were discussed with the patient. Procedure Code(s): --- Professional --- 68807, Esophagogastroduodenoscopy, flexible, transoral; diagnostic, including collection of specimen(s) by brushing or washing, when performed (separate procedure) Diagnosis Code(s): --- Professional --- K28.9, Gastrojejunal ulcer, unspecified as acute or chronic, without hemorrhage or perforation D50.9, Iron deficiency anemia, unspecified CPT copyright 2019 [employer]. All rights reserved. The codes documented in this report are preliminary and upon hospital clerk review may be revised to meet current compliance requirements. Tyrone Mathias MD Tyrone Mathias MD 08/08/2021 12:26:22 PM Electronically signed by Tyrone Mtahias MD Number of Addenda: 0 Note Initiated On: 08/08/2021 12:07 PM Estimated Blood Loss: Estimated blood loss: none.
--- NOTE | 2021-08-08 12:49 | ROOR ---
Patient Name: Kelly Shirley Procedure Date: 08/08/2021 12:08 PM Date of : 1950 Age: 70 Room: [facility] Gender: Female Note Status: Finalized Procedure: Total Colonoscopy to Cecum + Cold Snare Polypectomy + Hemoclips Indications: Unexplained iron deficiency anemia Providers: Tyrone Mathias MD Referring MD: Nohemi Leon NP Requesting Provider: Medicines: Monitored Anesthesia Care Complications: No immediate complications. Procedure: Pre-Anesthesia Assessment: - The heart rate, respiratory rate, oxygen saturations, blood pressure, adequacy of pulmonary ventilation, and response to care were monitored throughout the procedure. The Colonoscope was introduced through the anus and advanced to the cecum, identified by appendiceal orifice and ileocecal valve. The colonoscopy was performed without difficulty. The patient tolerated the procedure well. The quality of the bowel preparation was good. Findings: The perianal and digital rectal examinations were normal. Non-bleeding internal hemorrhoids were found during retroflexion. The hemorrhoids were small and Grade I (internal hemorrhoids that do not prolapse). A medium polyp was found in the ascending colon. The polyp was sessile. The polyp was removed with a cold snare. Resection and retrieval were complete. To prevent bleeding after the polypectomy, one hemostatic clip was successfully placed. There was no bleeding at the end of the procedure. Multiple small and large-mouthed diverticula were found in the recto-sigmoid colon, sigmoid colon and descending colon. The exam was otherwise without abnormality on direct and retroflexion views. Impression: - Non-bleeding internal hemorrhoids. - One medium polyp in the ascending colon, removed with a cold snare. Resected and retrieved. Clip was placed. - Diverticulosis in the recto-sigmoid colon, in the sigmoid colon and in the descending colon. - The examination was otherwise normal on direct and retroflexion views. - The exam was otherwise normal to the cecum. Recommendation: - Patient has a contact number available for emergencies. The signs and symptoms of potential delayed complications were discussed with the patient. Return to normal activities tomorrow. Written discharge instructions were provided to the patient. - High fiber diet. - Discharge patient to home. - Continue present medications. - Await pathology results. - Telephone GI clinic for pathology results in 1 week. - Repeat colonoscopy in 5 years for surveillance. - Return to referring physician. - The findings and recommendations were discussed with the patient. Procedure Code(s): --- Professional --- 29595, Colonoscopy, flexible; with removal of tumor(s), polyp(s), or other lesion(s) by snare technique Diagnosis Code(s): --- Professional --- K64.0, First degree hemorrhoids K63.5, Polyp of colon D50.9, Iron deficiency anemia, unspecified K57.30, Diverticulosis of large intestine without perforation or abscess without bleeding CPT copyright 2019 [employer]. All rights reserved. The codes documented in this report are preliminary and upon diesel mechanic helper review may be revised to meet current compliance requirements. Tyrone Mathias MD Tyrone Mathias MD 08/08/2021 12:49:35 PM Electronically signed by Tyrone Mathias MD Number of Addenda: 0 Note Initiated On: 08/08/2021 12:08 PM Estimated Blood Loss: Estimated blood loss: none.
[2021-08-08 13:01] VITALS: BP 123/74
== END 2021-08-08 13:19 | disposition home or self-care (01) ==
LOC: M OPP 10:29
PROVIDERS: ATTEND Internal Medicine Gastroenterology
DX: K28.9 Gastrojejunal ulcer, unspecified as acute or chronic, without hemorrhage or perforation (principal); D50.9 Iron deficiency anemia, unspecified; K64.0 First degree hemorrhoids; K63.0 Abscess of intestine; K57.30 Diverticulosis of large intestine without perforation or abscess without bleeding; Z98.84 Bariatric surgery status; K21.9 Gastro-esophageal reflux disease without esophagitis; I48.91 Unspecified atrial fibrillation; R42 Dizziness and giddiness; M06.9 Rheumatoid arthritis, unspecified; E66.9 Obesity, unspecified; Z79.899 Other long term (current) drug therapy
CPT/HCPCS: 43235; 45385; 88305; J3010

== ENCOUNTER → 2021-08-26 | Outpatient (CLI) | payer MEDICARE, MEDICAID ==
[~2021-08-26] MED LIST changes: -NS 1,000 ML IV ONE
== END ==
LOC: M LABSMTC 09:14
PROVIDERS: ATTEND Anesthesiology
DX: Z01.812 Encounter for preprocedural laboratory examination (principal); Z20.822 Contact with and (suspected) exposure to COVID-19

== ENCOUNTER 2021-08-29 11:41 | Day surgery (SDC) | payer MEDICARE, MEDICAID ==
[~2021-08-29] VITALS: Ht 167.6 cm; Wt 57.6 kg
--- OUTSIDE RECORDS SUMMARY | 2021-08-29 11:45 | CCD | Continuity of Care Document ---
Author Author Marvin MATHIAS M.D. Organization Unknown Address [address] [place] [address] Phone [phone] Care Team Providers Care Store Host Name Role Phone Nohemi Leon [employer] [phone] Problems Active Problems Provider Date Anemia Tyrone Mathias M.D. Onset: 05/19/20 21 Screening for malignant neoplasm of colon Abiola Bonilla A.NChante Onset: 01/19/2015 Social History Type Date Description Comments Sex Unknown ETOH Use Denies alcohol use Tobacco Use Start: Unknown End: Unknown Patient is a former smoker Allergies and adverse reactions Description No Known Drug Allergies Medications Active Medications SIG Qnty Indications Ordering Provide r Date Sutab [id number] Tablets as directed 1box Tyrone Mathias M.D. 05/19/2021 Zofran 4mg Tablets 1 tab by mouth every 4 hours as needed nausea 90tabs Tyrone Mathias M.D. 05/19/2021 Metoprolol Succinate ER 25mg Tablets ER 24HR Marjorie Sánchez MD Multiple Vitamin Tablets Unknown Xarelto 20mg Tablets Take One Tablet By Mouth Once Daily Unknown Famotidine 20mg Tablets Take One Tablet By Mouth Twice Daily Unknown Nitrofurantoin Monohydrate/Macrocrystals 100mg Capsules Take One Capsule By Mouth Twice Daily For Five Days Unknown Pantoprazole Sodium 40mg Tablets DR Unknown Sucralfate 1gm Tablets Unknown Hydroxychloroquine Sulfate 200mg T ablets Take One Tablet By Mouth Once Daily Unknown Sertraline HCL 50mg Tablets Anil Mo MD Ascorbic Acid 500mg Tablets Unknown Ferrous Sulfate 325(65Fe) mg Tablets Unknown Fluticasone Propionate 50mcg/Act Suspension Unknown Immunizations Description No Information Available Vital Signs Date Vital Result Comment 05/19/2021 3:26pm Height 66 inches 5'6" Weight 144.00 lb BP Systolic 104 mmHg BP Diastolic 64 mmHg Heart Rate 86 /min BMI (Body Mass Index) 23.2 kg/m2 Weight 65.318 kg Body Temperature 97.3 F 01/19/2015 8:56am Height 66 inches 5'6" Weight 207.00 lb BP Systolic 120 mmHg BP Diastolic 80 mmHg Heart Rate 66 /min BMI (Body Mass Index) 33.4 kg/m2 Weight 93.895 kg Results Test Acquired Date Facility Test Result H/L Range Note Laboratory test finding 08/08/2021 [facility] [address] [place] [address] Pathology Request For Service (SEE NOTE) 1, 2 1 FINAL DIAGNOSIS Ascending colon polyp, polypectomy: Tubular adenoma 08/08/2021 - 1529 CLINICAL DIAGNOSIS Anemia 08/08/2021 - 1507 GROSS DIAGNOSIS Received in formalin labeled "polyp ascending colon" and consists of fragments of tissue, 0.1 x 0.1 x 0.1 cm. All in one. -OA 08/09/2021 - 1134 Signed FAHAD LALA MD 08/09/2021 1134 2 08/10/21 (SunAug 10) 03:04 P Tom MATHIAS benign adenoma scope in 5 yrs Procedures Date Code Description Status 08/08/2021 22999 Colonoscopy Flexible Remove Tumo r/Polyp/Lesion Snare Technique Completed 08/08/2021 96467 Endoscopy Upper GI Biopsy Comple migue 05/19/2021 43080 Office/Outpatient [facility] 30 -44 Minutes Completed Medical Devices Description No Information Available Encounters Type Date Location Provider Dx Diagnosis Office Visit 05/19/2021 3:00p Main Office Tyrone Mathias M.D. D 64.9 Anemia, unspecified Assessments Date Code Description Provider 08/08/2021 D64.9 Anemia, unspecified Tyrone chao M.D. 08/08/2021 D12.2 Benign neoplasm of ascending col on Tyrone Mathias M.D. 08/08/2021 K64.0 First degree hemorrhoids Tyrone Mathias M.D. 08/08/2021 K57.30 Diverticulosis of la rge intestine without perforation or abscess without bleeding Tyrone Mathias M.D. 08/08/2021 Z98.0 Intestinal bypass and anastomosi s status Tyrone Mathias M.D. 05/19/2021 D64.9 Anemia, unspecified Tyrone chao M.D. Plan of Treatment 05/19/2021 - Tyrone Mathias M.D.* D64.9 Anemia, unspecified* Comments:* 70 yo wf who presents for a colonoscopy/egd due to a h/o anemia of unknown etiol ogy. Last scope was in 2014. No c/o abdominal pain, weight loss, change in bowel habits, or rectal bleeding. No family h/o colon cancer. No h/o chest pain, or sob. Plan:1. Colonoscopy + egd2. Sutabs prescribed for the colonoscopy prep.3. Stop Xarelto 3 days before.4. Positive h/o gastric bypass. Functional Status Description No Information Available Mental Status Description No Information Available Referrals Refer to Reason for Referral Status Appt Date Latisha Gold MD Pt had surgery with Dr. Jennifer mcdonald, who is retired. Marvin has an anastomtic ulcer-large for at least 10 months. Not healing with meds On Xarelto. Needs a revision of her gastric bypass. Please schedule Marvin an appointment at your earliest convenience. Your evaluation and treatment is greatly appreciated. Thank you PS: MARVIN HAD A COLONOSCOPY AND ENDOSCOPY THIS MORNING. I WILL FAX THOSE REPORTS SOON THEY BECOME AVAILABLE. Created [address] [place] [address] [phone]
--- OUTSIDE RECORDS SUMMARY | 2021-08-29 11:45 | CCD ---
Author Author [facility] Organization [facility] Address Unknown Phone Unavailable Care Team Providers Care Cartographic Aide Name Role Phone Laura Leon Unavailable PROBLEMS Type Condition ICD9-CM Code FAK00-[id number] Code Onset Dates Condition S tatus W/U Status Risk SNOMED Code Notes Problem History of nicotine dependence Z87.891 Active confi rmed 50339215 Problem Vasomotor rhinitis J30.0 Active confirmed 8 883499 Problem Rheumatoid arthritis, unspecified M06.9 Active con firmed 07746347 Problem Other hyperlipidemia E78.4 Active confirmed 28444756 Problem Chronic atrial fibrillation I48.2 Active confirmed 772868238 Problem Morbid obesity due to excess calories E66.01 Ac tive confirmed 771585359 Problem Vitamin D deficiency, unspecified E55.9 Active con firmed 41838116 Problem Hypercholesterolemia E78.00 Active confirmed 96284599 Problem Psoriasis L40.9 Active confirmed 9379587 Problem History of bariatric surgery Z98.84 Active confirme d 530836192 Problem Arthropathy M12.9 Active confirmed 87405947 3 Problem Systemic involvement of connective tissue M35.9 Active confirmed 804397603 Problem History of rheumatoid arthritis Z87.39 Active confi rmed 021753370 Problem Pain in joint, multiple sites M25.50 Active confirm ed 99085432 Problem Allergic rhinitis, unspecified seasonality, unspecifie d trigger J30.9 Active confirmed 67618773 Problem Pain of multiple sites R52 Active confirmed 03492667 Problem Primary osteoarthritis involving multiple joints M 15.0 Active confirmed 150536804 Problem Gastric ulcer with hemorrhage, unspecified chronicity K25.4 Active confirmed 65436979 Problem History of gastric ulcer Z87.19 Active confirmed 078082626 Problem Longstanding persistent atrial fibrillation I48.11 Active confirmed 477680828 Problem S/P gastric bypass Z98.84 Active confirmed 6 48505022 Problem Other chronic gastritis with hemorrhage K29.51 Active confirmed 8014255 Problem Myalgia M79.1 Active confirmed 79000496 Problem Osteoarthritis of hand, unsp ecified laterality, unspecified osteoarthritis type M19.049 Active confirmed 31380336 Problem B12 deficiency E53.8 Active confirmed 19374 4004 Problem Cervical facet joint syndrome M53.82 Active confirm ed 892780628 Problem Psoriatic arthritis L40.50 Active confirmed 627714532 Problem Macrocytic anemia with vitamin B12 deficiency D51. 8 Active confirmed 30218004 Problem Atrial fibrillation with controlled ventricular rate I48.91 Active confirmed 30736558 Problem Iron deficiency anemia, unspecified iron deficiency an emia type D50.9 Active confirmed 61713724 ALLERGIES Allergen (clinical drug ingredient) Drug/Non Drug Allergy do cumented on EMR Reaction Allergy Type Onset Date Status ENVIRONMENTAL Unknown Non Drug Allergy Activ e ENCOUNTERS from 1950 to 2021-08-11 Encounter Location Date Provider Diagnosis [facility] Rheumatology [address] [place] [address] [place] [address] Jul, [facility] Psoriatic arthritis L40.50 ; Osteoarthritis of hand, unspecified laterality, unspecified osteoarthritis type M19.049 ; Family history of psoriasis Z84.0 and Long-term use of high-risk medication Z79.899 IMMUNIZATIONS Vaccine Route Administration Date Status TDAP 0.5mL (Boostrix) IM Intramuscular Oct 08, 2014 Administe red Pneumococcal Adult 0.5mL Pneumovax 23 IM Intramuscular Sep 11 018 Administered Influenza Pharmacy Given Unknown Aug 27, 2019 Adminis tered COVID-19 dose #1 given elsewhere Unspecified Unknown March 25, 2021 Administered COVID-19 dose #2 given elsewhere Unspecified Unknown March 25, 2021 Administered Influenza 6mo & up Fluzone IM Intramuscular Jul 19, 2012 Admi nistered Influenza Pharmacy Given Unknown Aug 26, 2018 Adminis tered Influenza 18 yrs & older Flublok IM Intramuscular Jul 29, 2020 Administered Pneumococcal 0.5mL Prevnar 13 IM Intramuscular Oct 08, 2014 A dministered Influenza 6mo & up Fluzone Unknown Sep 01, 2017 Admin istered Influenza 6mo & up Fluzone Unknown Aug 29, 2016 Admin istered Influenza 6mo & up Fluzone IM Intramuscular Oct 18, 2015 Admi nistered Influenza 6mo & up Fluzone IM Intramuscular Sep 11, 2014 Admi nistered Influenza 6mo & up Fluzone IM Intramuscular Jul 31, 2013 Admi nistered SOCIAL HISTORY Tobacco Use: Social History Observation Description Date Details (start date - stop date) Former Smoker Sex Assigned At : Social History Observation Description Sex Assigned At Unknown Education: Question Answer Notes Level of Education: High School Audit Question Answer Notes Total Score: 0 Interpretation: Alcohol Education Language: Question Answer Notes Languages spoken: Citizen Of [place] Orthodoxy: Question Answer Notes Orthodoxy No mormonism beliefs that would impact health care. Sexual Hx: Question Answer Notes Had sex in the last 12 months (vaginal, oral, or anal)? No Have you ever had an STD? No Drug and Alcohol Question Answer Notes Total Score: 0 Interpretation: No problems reported Alcohol Screening: Question Answer Notes Did you have a drink containing alcohol in the past year? No Points 0 Interpretation Negative BMI Care Goal Follow-Up Question Answer Notes Above Normal BMI Follow-Up Giving encouragement to exercise Tobacco Use: Question Answer Notes Are you a: former smoker How long has it been since you last smoked? > 10 years REASON FOR REFERRAL No Information VITAL SIGNS Weight 141.0 lbs Jul, Weight-kg 63.96 kg Jul, Height 66 in Jul, BMI 22.76 kg/m2 Jul, Heart Rate 81 /min Jul, Respiratory Rate 20 /min Jul, Temperature 98.4 degrees Fahrenheit Jul, Oximetry 99 Jul, Blood pressure systolic 122 mm Hg Jul, Blood pressure diastolic 74 mm Hg Jul, MEDICATIONS Medication SIG (Take, Route, Frequency, Duration) Notes Start Da te End Date Status Famotidine 20 MG 1 tablet at bedtime as needed Orally twice hoda y for 30 Days Active Colace 100 MG 1 capsule as needed Orally Once a day for 30 day (s) May, Active Boost High Protein - 240 ml Orally Daily for 30 days 2020 Active Xarelto 20 mg 1 tablet orally once a day Active Metoprolol Succinate 25 MG as directed Orally daily Active Ondansetron HCl 4 MG 1 tablet Orally three times daily as needed for nausea or vomiting for 10 day(s) Active Vitamin D (Ergocalciferol) 1.25 MG (38249 UT) 1 capsule Orally weekly Active Calcium Citrate + D 250-200 MG-UNIT 1 tablet Orally Twice a day for 30 day(s) Active Voltaren 1 % apply 4 g of 1% gel to affec migue area Transdermal four times daily as needed for 30 days Jul, Active Acetaminophen 325 MG 1 tablet as needed Orally every 4 hrs Active Ferrous Sulfate 325 MG 1 tab Orally twice daily for 30 Days Active Multi For Her - 1 tab Orally once daily Active Pantoprazole Sodium 40 MG TAKE ONE TABLET BY MOUTH TWICE DAILY Oral D aily Active Hydroxychloroquine Sulfate 200 MG take one tablet by m outh once daily Oral once daily for 90 days Active PROCEDURES No Information RESULTS No Results REASON FOR VISIT C/o bilateral hand pain MEDICAL (GENERAL) HISTORY Type Description Date Medical History Rheumatoid Arthritis (Dr Hickey, pain c kasey) Medical History Degenerative disc disease/ Chr neck pain (Johnathan) Medical History Hyperlipidemia Medical History Psoriasis, controlled Medical History Morbid obesity Medical History Vitamin d deficiency Medical History Vitamin B12 deficiency Medical History Hx of nicotine dependence - AQUILES 10/19, FEV1 2.33. Medical History Screening colonscopy performed 2014 Medical History Biotronik single chamber pacemaker 09/01 Medical History Atrial fib: dx 04/03/13, card ioversion 08/04/13, afib returned 3 days later. On Xarelto Medical History Pacemaker: Biotronik single chamber pacemaker implanted 08/2017 for sick sinus syndrome Medical History ECHO 2012: LVEF 60-65%, mild left ventricular hypertrophy, moderate left atrial enlargement, normal pulmonary artery pressure Medical History ECHO 08/2017: LVEF 65-70%, no valvular d isease, normal CVP Medical History Gastrojejunostomy ulcer Surgical History Shoulder surgery x 2 Surgical History Carpal tunnel release/bilateral 2007/ 9 Surgical History D&C Surgical History Gastric bypass - Dr Flores, [facility] 06/2013 Surgical History Pacemaker 09/01/17 Surgical History Colonoscopy; repeat 10 years - Dr Naresh currie 2014 Surgical History Expiratory laparotomy, upper GI Endoscop y, [facility] - Dr Kidd 03/24/19 Surgical History EGD 01/2021 Hospitalization History Shoulder surgery 07/12 Hospitalization History [facility] gastric surgery 06/06 013 Hospitalization History Atrial fibibrillation 08/30/17-10/29 /17 Hospitalization History Pacemaker 09/03/17- 7 Hospitalization History Melena, ulcers, UGI bleed 01/2021 Goals Section No Information Health Concerns No Information MEDICAL EQUIPMENT No Information MENTAL STATUS No Information FUNCTIONAL STATUS No Information ASSESSMENTS Encounter Date Diagnosis Assessment Notes Treatment Notes Treatm ent Clinical Notes Jul, Psoriatic arthritis (ICD-10 - L40.50) At this time, the diagnosis of Psoriatic Arthritis cannot be confirmed; will monitor the clinical presentation closely. Will continue the Plaquenil therapy, at this time. Jul, Osteoarthritis of hand, unsp ecified laterality, unspecified osteoarthritis type (ICD-10 - M19.049) Clinical presentation consistent with bilateral osteoarthritis of the hands. Counseling provided on the disease course and symptomatology of the hand osteoarthritis. Information on hand exercises provided to the patient for further education. Recommended the performance of the hand exercises for 10 minutes daily and the use of voltaren gel OTC - four times/daily as needed. If conservative methods fail, then will consider sending to occupational therapy to evaluate the ability to perform activities of daily living (ADLs), instruction in joint protection techniques, to provide assistive devices to help perform ADLs, and to instruct in use of thermal modalities. She was agreeable and expressed understanding of the plan. All questions and concerns were addressed Jul, Family history of psoriasis (ICD-10 - Z84.0) Jul, Long-term use of high-risk medication (ICD-10 - Z79.899) Plaquenil: This medication is an immunosuppressant and considered a high risk medication, as there is increased potential for adverse reaction and significant toxicity. Will monitor the Plaquenil level to evaluate adherence and absorption of the medication Jul, Other Please perform t he hand exercises for 10 minutes on daily exercises. The total time spent on the date of the encounter: 34 minutes - [facility] see if the patient has had a Plaquenil Screening Examination. PLAN OF TREATMENT Medication Medication Name Sig Start Date Stop Date Hydroxychloroquine Sulfate 200 MG take one tablet by m outh once daily Oral once daily for 90 days Voltaren 1 % apply 4 g of 1% gel to affec migue area Transdermal four times daily as needed for 30 days Jul, Treatment Notes Assessment Notes Clinical Notes Psoriatic arthritis At this time, the di agnosis of Psoriatic Arthritis cannot be confirmed; will monitor the clinical presentation closely. Will continue the Plaquenil therapy, at this time. Osteoarthritis of hand, unspecified laterality, unspec ified osteoarthritis type Clinical presentation consistent with bi lateral osteoarthritis of the hands. Counseling provided on the disease course and symptomatology of the hand osteoarthritis. Information on hand exercises provided to the patient for further education. Recommended the performance of the hand exercises for 10 minutes daily and the use of voltaren gel OTC - four times/daily as needed. If conservative methods fail, then will consider sending to occupational therapy to evaluate the ability to perform activities of daily living (ADLs), instruction in joint protection techniques, to provide assistive devices to help perform ADLs, and to instruct in use of thermal modalities. She was agreeable and expressed understanding of the plan. All questions and concerns were addressed Long-term use of high-risk medication Pl aquenil: This medication is an immunosuppressant and considered a high risk medication, as there is increased potential for adverse reaction and significant toxicity. Will monitor the Plaquenil level to evaluate adherence and absorption of the medication Treatment Notes Test Name Order Date Hydroxychloroquine level 2021-07-26 Next Appt Details Provider Name:Nohemi Leon, 2021-08-25 02:0 0:00 PM, [address] [place] [address], , [place], [address], Provider Name:Laura Santos Edward, 2021-10-21 11:15:00 AM, [address] [place] [address], , [place], [address], Insurance Providers Payer Name Payer Address Payer Phone Insured Name Patient Relati onship to Insured Coverage Start Date Coverage End Date MEDICARE Part A and B [address] [facility] [phone] MARVIN JOHNSON MEDICAID [employer] [address] [facility] [address] MARVIN JOHNSON
--- OUTSIDE RECORDS SUMMARY | 2021-08-29 11:45 | CCD ---
Author Author [facility] Organization [facility] Address Unknown Phone Unavailable Care Team Providers Care Elementary Art Teacher Name Role Phone Nela Mathias MD Unavailable Unavailable Nela Mathias MD Unavailable Unavailable Nela Mathias MD Unavailable Unavailable Nela aMthias MD Unavailable Unavailable Nela Mathias MD Unavailable Unavailable Nela Mathias MD Unavailable Unavailable Nela Mathias MD Unavailable Unavailable Nela Mathias MD Unavailable Unavailable Nela Mathias MD Unavailable Unavailable Nela Mathias MD Unavailable Unavailable Nela Mathias MD Unavailable Unavailable Nela Mathias MD Unavailable Unavailable Nela Mathias MD Unavailable Unavailable Nela Mathias MD Unavailable Unavailable Nela Mathias MD Unavailable Unavailable Nela Mathias MD Unavailable Unavailable Nela Mathias MD Unavailable Unavailable Nela Mathias MD Unavailable Unavailable Nela Mathias MD Unavailable Unavailable Nela Mathias MD Unavailable Unavailable Nela Mathias MD Unavailable Unavailable Nela Mathias MD Unavailable Unavailable Nela Mathias MD Unavailable Unavailable Nela Mathias MD Unavailable Unavailable Nela Mathias MD Unavailable Unavailable Nela Mathias MD Unavailable Unavailable Nela Mathias MD Unavailable Unavailable Nela Mathias MD Unavailable Unavailable Nela Mathias MD Unavailable Unavailable Nela Mathias MD Unavailable Unavailable Nela Mathias MD Unavailable Unavailable Nela Mathias MD Unavailable Unavailable Nela Mathias MD Unavailable Unavailable Nela Mathias MD Unavailable Unavailable Nela Mathias MD Unavailable Unavailable Nela Mathias MD Unavailable Unavailable Nela Mathias MD Unavailable Unavailable Nela Mathias MD Unavailable Unavailable Nela Mathias MD Unavailable Unavailable Nela Mathias MD Unavailable Unavailable Nela Mathias MD Unavailable Unavailable Nela Mathias MD Unavailable Unavailable Nela Mathias MD Unavailable Unavailable Nela Mathias MD Unavailable Unavailable Nela Mathias MD Unavailable Unavailable Nela Mathias MD Unavailable Unavailable Nela Mathias MD Unavailable Unavailable Neal Mathias MD Unavailable Unavailable Nela Mathias MD Unavailable Unavailable Nela Mathias MD Unavailable Unavailable Anil Mo MD Unavailable Unavailable Anil Mo MD Unavailable Unavailable Anil Mo MD Unavailable Unavailable Anil Mo MD Unavailable Unavailable Anil Mo MD Unavailable Unavailable Anil Mo MD Unavailable Unavailable Anil Mo MD Unavailable Unavailable AliAnil MD Unavailable Unavailable AliAnil MD Unavailable Unavailable Ali, Anil RESTREPO Unavailable Unavailable Ali, Anil RESTREPO Unavailable Unavailable AliAnil MD Unavailable Unavailable Ali, Anil RESTREPO Unavailable Unavailable Ali, Anil MD Unavailable Unavailable Ali, Anil MD Unavailable Unavailable Ali, Anil MD Unavailable Unavailable Ali, Anil MD Unavailable Unavailable Ali, Anil MD Unavailable Unavailable Ali, Anil MD Unavailable Unavailable Ali, Anil MD Unavailable Unavailable Ali, Anil RESTREPO Unavailable Unavailable Ali, Anil RESTREPO Unavailable Unavailable Ali, Anil MD Unavailable Unavailable Ali, Anil MD Unavailable Unavailable Ali, Anil MD Unavailable Unavailable Ali, Anil MD Unavailable Unavailable Ali, Anil MD Unavailable Unavailable Ali, Anil MD Unavailable Unavailable Ali, Anil MD Unavailable Unavailable Ali, Anil MD Unavailable Unavailable Ali, Anil MD Unavailable Unavailable Ali, Anil MD Unavailable Unavailable Ali, Anil MD Unavailable Unavailable Ali, Anil MD Unavailable Unavailable Ali, Anil MD Unavailable Unavailable Ali, Anil MD Unavailable Unavailable Ali, Anil MD Unavailable Unavailable Ali, Anil RESTREPO Unavailable Unavailable Ali, Anil RESTREPO Unavailable Unavailable Ali, Anil MD Unavailable Unavailable Ali, Anil RESTREPO Unavailable Unavailable Ali, Anil MD Unavailable Unavailable Ali, Anil MD Unavailable Unavailable Ali, Anil MD Unavailable Unavailable Ali, Anil RESTREPO Unavailable Unavailable Ali, Anil RESTREPO Unavailable Unavailable AliAnil MD Unavailable Unavailable AliAnil MD Unavailable Unavailable Ali, Anil MD Unavailable Unavailable AliAnil MD Unavailable Unavailable Slezka Vojtech Unavailable Unavailable Slezka Vojtech Unavailable Unavailable Slezka Vojtech Unavailable Unavailable Slezka Vojtech Unavailable Unavailable Slezka Vojtech Unavailable Unavailable Slezka Vojtech Unavailable Unavailable Slezka Vojtech MD Unavailable Unavailable Slezka Vojtech MD Unavailable Unavailable Slezka Vojtech MD Unavailable Unavailable Slezka Vojtech MD Unavailable Unavailable Slezka Vojtech Unavailable Unavailable Slezka Vojtech MD Unavailable Unavailable Slezka Vojtech MD Unavailable Unavailable Slezka Vojtech MD Unavailable Unavailable Slezka Vojtech MD Unavailable Unavailable Slezka Vojtech MD Unavailable Unavailable Slezka, Vojtech MD Unavailable Unavailable Slezka, Vojtech MD Unavailable Unavailable Slezka, Vojtech MD Unavailable Unavailable Slezka, Vojtech MD Unavailable Unavailable Slezka Vojtech Unavailable Unavailable Slezka, Vojtech Unavailable Unavailable Slezka, Vojtech MD Unavailable Unavailable Slezka, Vojtech Unavailable Unavailable Slezka, Vojtech MD Unavailable Unavailable Slezka, Vojtech MD Unavailable Unavailable Slezka, Vojtech MD Unavailable Unavailable Slezka, Vojtech MD Unavailable Unavailable Slezka, Vojtech MD Unavailable Unavailable Slezka, Vojtech MD Unavailable Unavailable Slezka, Vojtech MD Unavailable Unavailable Slezka, Vojtech MD Unavailable Unavailable Slezka, Vojtech MD Unavailable Unavailable Slezka, Vojtech MD Unavailable Unavailable Slezka, Vojtech MD Unavailable Unavailable Slezka, Vojtech MD Unavailable Unavailable Slezka, Vojtech MD Unavailable Unavailable Slezka, Vojtech MD Unavailable Unavailable Slezka, Vojtech MD Unavailable Unavailable Slezka, Vojtech MD Unavailable Unavailable Slezka, Vojtech MD Unavailable Unavailable Slezka, Vojtech MD Unavailable Unavailable Slezka, Vojtech MD Unavailable Unavailable Slezka, Vojtech MD Unavailable Unavailable Slezka, Vojtech MD Unavailable Unavailable Slezka, Vojtech MD Unavailable Unavailable Slezka, Vojtech MD Unavailable Unavailable Slezka, Vojtech MD Unavailable Unavailable Slezka, Vojtech MD Unavailable Unavailable Slezka, Vojtech MD Unavailable Unavailable Slezka, Vojtech MD Unavailable Unavailable Slezka, Vojtech MD Unavailable Unavailable Slezka, Vojtech MD Unavailable Unavailable Slezka, Vojtech MD Unavailable Unavailable Slezka, Vojtech MD Unavailable Unavailable Slezka, Vojtech MD Unavailable Unavailable Slezka, Vojtech MD Unavailable Unavailable Slezka, Vojtech Unavailable Unavailable Re-disclosure Warning The records that you are about to access may contain information from federally-assisted alcohol or drug abuse programs. If such information is present, then the following federally mandated warning applies: This information has been disclosed to you from records protected by federal confidentiality rules (42 CFR part 2). The federal rules prohibit you from making any further disclosure of this information unless further disclosure is expressly permitted by the written consent of the person to whom it pertains or as otherwise permitted by 42 CFR part 2. A general authorization for the release of medical or other information is NOT sufficient for this purpose. The Federal rules restrict any use of the information to criminally investigate or prosecute any alcohol or drug abuse patient.The records that you are about to access may contain highly sensitive health information, the redisclosure of which is protected by Article 27-F of the [facility] Public Health law. If you continue you may have access to information: Regarding HIV / AIDS; Provided by facilities licensed or operated by the [facility] Office of Mental Health; or Provided by the [facility] Office for People With Developmental Disabilities. If such information is present, then the following [facility] mandated warning applies: This information has been disclosed to you from confidential records which are protected by state law. State law prohibits you from making any further disclosure of this information without the specific written consent of the person to whom it pertains, or as otherwise permitted by law. Any unauthorized further disclosure in violation of state law may result in a fine or fpc sentence or both. A general authorization for the release of medical or other information is NOT sufficient authorization for further disc losure. Family History Family Member Name Family Member Gender Family Member Status Date o f Status Description Data Source(s) Unknown Male Problem MEDENT ([facility]) Encounters Encounter Providers Location Date Indications Data Source(s ) Outpatient Referrer: Marjorie FRIEND 08/05 12:00:00 AM EDT [facility] Unknown [address] [facility] [place] [address] 07/27/2021 12:00:00 AM EDT eCW1 ([facility]) Outpatient [address] [facility] [place] [address] 07/26/2021 12:00:00 AM EDT eCW1 ([facility]) Outpatient [email or web address]-[email or web address].[email or web address] 07/08/2021 10:42:43 AM EDT [facility] Outpatient Attender: Marjorie GARCIA-SJTAVARES 06/07 12:00:00 AM EDT - 07/04/2021 09:35:37 AM EDT [facility] [place] [address] [facility] [address] 06/09/2021 12:00:00 AM EDT [facility] [place] [address] [facility] [address] 06/06/2021 12:00:00 AM EDT [facility]CW1 ([facility]) [place] [address] [facility] [address] 05/26/2021 12:00:00 AM EDT eCW1 ([facility]) Outpatient Attender: Tyrone Mathias MD Main Office 05/19/2021 03:00:00 PM EDT [facility] ([facility]) [place] [address] [facility] [address] 05/19/2021 12:00:00 AM EDT eCW1 ([facility]) [place] [address] [facility] [address] 05/12/2021 12:00:00 AM EDT eCW1 ([facility]) Outpatient [email or web address] 03/31/2021 08:43:14 AM EDT [facility] [place] [address] [facility] [address] 03/25/2021 12:00:00 AM EDT eCW1 ([facility]) [place] [address] [facility] [address] 03/22/2021 12:00:00 AM EDT [facility] [place] [address] [facility] [address] 03/21/2021 12:00:00 AM EDT eCW1 ([facility]) [place] [address] [facility] [address] 02/10/2021 12:00:00 AM EDT [facility]CW1 ([facility]) [place] [address] [facility] [address] 02/10/2021 12:00:00 AM EDT [facility] [place] [address] [facility] [address] 02/03/2021 12:00:00 AM EDT eCW1 ([facility]) Outpatient [email or web address] 12/24/2020 09:51:05 AM EST [facility] Office Visit, Est Pt., Level 3 PC [address] [place] [address] 12/20/2020 12:00:00 AM EST eCW1 ([facility]) [place] [address] [facility] [address] 12/20/2020 12:00:00 AM EST eCW1 ([facility]) Outpatient Attender: Anil Mo MD Main office - [place] 10/14/2020 12:30:00 PM EST MEDENT ([facility], ) Outpatient [email or web address] 09/17/2020 01:59:41 PM EST [facility] [place] [address] [facility] [address] 08/27/2020 12:00:00 AM EDT eCW1 ([facility]) Outpatient Attender: Anil Mo MD Main office - [place] 08/12/2020 09:00:00 AM EDT [facility] [place] [address] [facility] [address] 07/29/2020 12:00:00 AM EDT eCW1 ([facility]) [facility] [address] [place] [address] 07/09/2020 12:00:00 AM EDT eCW1 ([facility]) Immunizations Vaccine Date Status Description Data Source(s) COVID-19 dose #2 given elsewhere Unspecified 03/25/2021 10:3 8:00 AM EDT completed eCW1 ([facility]) COVID-19 dose #2 given elsewhere Unspecified 03/25/2021 10:3 8:00 AM EDT completed eCW1 ([facility]) COVID-19 dose #2 given elsewhere Unspecified 03/25/2021 10:3 8:00 AM EDT completed eCW1 ([facility]) COVID-19 dose #2 given elsewhere Unspecified 03/25/2021 10:3 8:00 AM EDT completed eCW1 ([facility]) COVID-19 dose #2 given elsewhere Unspecified 03/25/2021 10:3 8:00 AM EDT completed eCW1 ([facility]) COVID-19 dose #2 given elsewhere Unspecified 03/25/2021 10:3 8:00 AM EDT completed eCW1 ([facility]) COVID-19 dose #2 given elsewhere Unspecified 03/25/2021 10:3 8:00 AM EDT completed eCW1 ([facility]) COVID-19 dose #2 given elsewhere Unspecified 03/25/2021 10:3 8:00 AM EDT completed eCW1 ([facility]) COVID-19 dose #1 given elsewhere Unspecified 03/25/2021 10:3 7:00 AM EDT completed eCW1 ([facility]) COVID-19 dose #1 given elsewhere Unspecified 03/25/2021 10:3 7:00 AM EDT completed eCW1 ([facility]) COVID-19 dose #1 given elsewhere Unspecified 03/25/2021 10:3 7:00 AM EDT completed eCW1 ([facility]) COVID-19 dose #1 given elsewhere Unspecified 03/25/2021 10:3 7:00 AM EDT completed eCW1 ([facility]) COVID-19 dose #1 given elsewhere Unspecified 03/25/2021 10:3 7:00 AM EDT completed eCW1 ([facility]) COVID-19 dose #1 given elsewhere Unspecified 03/25/2021 10:3 7:00 AM EDT completed eCW1 ([facility]) COVID-19 dose #1 given elsewhere Unspecified 03/25/2021 10:3 7:00 AM EDT completed eCW1 ([facility]) COVID-19 dose #1 given elsewhere Unspecified 03/25/2021 10:3 7:00 AM EDT completed eCW1 ([facility]) COVID-19 VACCINE Pfizer 12/23/2020 12:00:00 AM EST completed [facility] Vaccine Series Complete: NOThis Data was Submitted to [facility] Via [email or web address]. influenza, recombinant, quadrIvalent,injectable, prese rvative free 07/29/2020 01:35:00 PM EDT completed eCW1 ([facility]) influenza, recombinant, quadrIvalent,injectable, prese rvative free 07/29/2020 01:35:00 PM EDT completed eCW1 ([facility]) influenza, recombinant, quadrIvalent,injectable, prese rvative free 07/29/2020 01:35:00 PM EDT completed eCW1 ([facility]) influenza, recombinant, quadrIvalent,injectable, prese rvative free 07/29/2020 01:35:00 PM EDT completed eCW1 ([facility]) influenza, recombinant, quadrIvalent,injectable, prese rvative free 07/29/2020 01:35:00 PM EDT completed eCW1 ([facility]) influenza, recombinant, quadrIvalent,injectable, prese rvative free 07/29/2020 01:35:00 PM EDT completed eCW1 ([facility]) influenza, recombinant, quadrIvalent,injectable, prese rvative free 07/29/2020 01:35:00 PM EDT completed eCW1 ([facility]) influenza, recombinant, quadrIvalent,injectable, prese rvative free 07/29/2020 01:35:00 PM EDT completed eCW1 ([facility]) influenza, recombinant, quadrIvalent,injectable, prese rvative free 07/29/2020 01:35:00 PM EDT completed eCW1 ([facility]) influenza, recombinant, quadrIvalent,injectable, prese rvative free 07/29/2020 01:35:00 PM EDT completed eCW1 ([facility]) influenza, recombinant, quadrIvalent,injectable, prese rvative free 07/29/2020 01:35:00 PM EDT completed eCW1 ([facility]) influenza, recombinant, quadrIvalent,injectable, prese rvative free 07/29/2020 01:35:00 PM EDT completed eCW1 ([facility]) influenza, recombinant, quadrIvalent,injectable, prese rvative free 07/29/2020 01:35:00 PM EDT completed eCW1 ([facility]) Medications Medication Brand Name Start Date Product Form Dose Route Admi nistrative Instructions Pharmacy Instructions Status Indications Reaction Description Data Source(s) Diclofenac Sodium 0.01 MG/MG Topical Gel [Voltaren] Voltaren 1 % Voltaren 1 % 07/26/2021 12:00:00 AM EDT active Voltaren 1 % eCW1 ([facility]) Diclofenac Sodium 0.01 MG/MG Topical Gel [Voltaren] Voltaren 1 % Voltaren 1 % 07/26/2021 12:00:00 AM EDT active Voltaren 1 % eCW1 ([facility]) Hydroxychloroquine Sulfate 200 MG Oral T ablet hydroxychloroquine (PLAQUENIL) 200 MG tablet hydroxychloroquine (PLAQUENIL) 200 MG tablet 12:00:00 AM EDT 200 mg Oral active Take 200 mg by mo uth daily [facility] Ondansetron 4 MG Oral Tablet ondansetron (ZOFRAN) 4 MG tablet ondansetron (ZOFRAN) 4 MG tablet 06/07/2021 12:00:00 AM EDT active TAKE ONE TABLET BY MOUTH EVERY 4 HOURS NEEDED FOR NAUSEA [facility] Famotidine 20 MG Oral Tablet famotidine (PEPCID) 20 MG tablet famotidine (PEPCID) 20 MG tablet 06/07/2021 12:00:00 AM EDT 20 mg Oral active Take 20 mg by mouth [facility] Sutab Sutab 05/19/2021 12:00:00 AM EDT active MEDENT ([facility]) Ondansetron 4 MG Oral Tablet [Zofran] Zofran 05/19/2021 12:00:00 AM EDT ORAL active MED[facility] ([facility]) Boost High Protein - Boost High Protein - 05/12/2021 12:00:00 AM ED T 240.0 {ml} active Boost High Protein - eCW 1 ([facility]) Docusate Sodium 100 MG Oral Capsule [Colace] Colace 100 MG C olace 100 MG 05/12/2021 12:00:00 AM EDT 1.0 {capsule_as_needed} active Colace 100 MG eCW1 ([facility]) Docusate Sodium 100 MG Oral Capsule [Colace] Colace 100 MG C olace 100 MG 05/12/2021 12:00:00 AM EDT 1.0 {capsule_as_needed} active Colace 100 MG eCW1 ([facility]) Docusate Sodium 100 MG Oral Capsule [Colace] Colace 100 MG C olace 100 MG 05/12/2021 12:00:00 AM EDT 1.0 {capsule_as_needed} a ctive eCW1 ([facility]) Boost High Protein - Boost High Protein - 05/12/2021 12:00:00 AM ED T 240.0 {ml} active Boost High Protein - eCW 1 ([facility]) Boost High Protein - Boost High Protein - 05/12/2021 12:00:00 AM ED T 240.0 {ml} active Boost High Protein - eCW 1 ([facility]) Boost High Protein - Boost High Protein - 05/12/2021 12:00:00 AM ED T 240.0 {ml} active Boost High Protein - eCW 1 ([facility]) Docusate Sodium 100 MG Oral Capsule [Colace] Colace 100 MG C olace 100 MG 05/12/2021 12:00:00 AM EDT 1.0 {capsule_as_needed} active Colace 100 MG eCW1 ([facility]) Boost High Protein - Boost High Protein - 05/12/2021 12:00:00 AM ED T 240.0 {ml} active Boost High Protein - eCW 1 ([facility]) Boost High Protein - Boost High Protein - 05/12/2021 12:00:00 AM ED T 240.0 {ml} active eCW1 ([facility]) Boost High Protein - Boost High Protein - 05/12/2021 12:00:00 AM ED T 240.0 {ml} active Boost High Protein - eCW 1 ([facility]) Docusate Sodium 100 MG Oral Capsule [Colace] Colace 100 MG C olace 100 MG 05/12/2021 12:00:00 AM EDT 1.0 {capsule_as_needed} active Colace 100 MG eCW1 ([facility]) Docusate Sodium 100 MG Oral Capsule [Colace] Colace 100 MG C olace 100 MG 05/12/2021 12:00:00 AM EDT 1.0 {capsule_as_needed} active Colace 100 MG eCW1 ([facility]) Docusate Sodium 100 MG Oral Capsule [Colace] Colace 100 MG C olace 100 MG 05/12/2021 12:00:00 AM EDT 1.0 {capsule_as_needed} active Colace 100 MG eCW1 ([facility]) Ergocalciferol 15306 UNT Oral Capsule vi tamin D, Ergocalciferol, 1.25 MG (88418 UT) CAPS vitamin D, Ergocalciferol, 1.25 MG (61573 UT) CAPS 12:00:00 AM EDT active TAKE ONE CAPSULE BY MOUTH EVERY WEEK [facility] 24 HR metoprolol succinate 25 MG Extende d Release Oral Tablet metoprolol succinate (TOPROL-XL) 25 MG 24 hr tablet metoprolol succinate (TOPROL-XL) 25 MG 24 hr tablet 04/03/2021 12:00:00 AM EDT 25 mg Oral activ e Take 1 tablet (25 mg total) by mouth daily [facility] rivaroxaban 20 MG Oral Tablet [Xarelto] Xarelto 20 MG TABS X arelto 20 MG TABS 03/31/2021 12:00:00 AM EDT 20 mg Oral active Take 1 tablet (20 mg total) by mouth daily [facility] Ondansetron 4 MG Oral Tablet Ondansetron HCl 4 MG Ondansetro n HCl 4 MG 03/25/2021 12:00:00 AM EDT 1.0 {tablet} active Ondansetron HCl 4 MG eCW1 ([facility]) Sertraline 50 MG Oral Tablet Sertraline HCL 08/12/2020 12:00:00 AM EDT ORAL active MEDENT ([facility]) Vitamin B 12 1 MG Extended Release Oral Tablet Cyanocobalamin (VITAMIN B12) 1000 MCG TBCR Cyanocobalamin (VITAMIN B12) 1000 MCG TBCR 09/10/2017 12:00: 00 AM EST Oral aborted Take by mouth [facility] Ergocalciferol 2000 UNT Oral Tablet Ergo calciferol (VITAMIN D2) 50 MCG (1999) TABS Ergocalciferol (VITAMIN D2) 50 MCG (1999) TABS 04/2017 12:00:00 AM EST Oral aborted Take by mouth [facility] Insurance Providers Payer name Policy type / Coverage type Policy ID Covered green party ID Covered green party's relationship to morris Policy [employer] Plan Information [place] [id number] Self 0 [id number] MEDICARE A [id number] Self [id number] A MEDICARE [id number] Maya [id number] MEDICARE 4 [id number] A [place] Primary [id number] Self 0 [id number] [place] Medicare Primary [id number] Self [id number] A [place] Primary [id number] Self 0 [id number] MEDICARE [id number] [place] Primary [id number] Self 0 [id number] Medicare [facility] Medicare Primary [id number] Self 0 [id number] Medicare [facility] Medicare Primary [id number] Self Medicare [facility] Medicare Primary [id number] Self [id number] MEDICAID [id number] Self [id number] [facility] [id number] Self [id number] [facility] [id number] Self MEDICAID [id number] MEDICAID [id number] Maya [id number] MEDICARE [id number] Maya [id number] [facility]-Medicaid [id number] ANS-Medicare Part B [id number] ANS-Medicaid [id number] ANS-Medicare Part B [id number] ANSI-Medicaid [id number] [facility] [id number] ANSI-Medicare Part B [id number] ANSI-Medicaid [id number] ANSI-Medicare Part B [id number] ANSI-Medicaid [id number] ANSI-Medicaid [id number] ANSI-Medicare Part B [id number] ANSI-Medicare Part B [id number] ANSI-Medicaid [id number] ANSI-Medicare Part B [id number] ANSI-Medicaid [id number] ANSI-Medicaid [id number] ANS-Medicare Part B [id number] Medicaid Medigap Part B [id number] Self [id number] Medicare (Part B) Medicare Primary [id number] Self 0 [id number] Medicare Natl Gov't Servi Medicare Primary [id number] Self [id number] MEDICARE P [id number] S [id number] A MEDICAID W [id number] S [id number] MEDICARE OUTPATIENT M [id number] S [id number] MEDICAID 3 [id number] 1 [id number] SELFPAY 5 UNAVAILABLE 1 UNAVAILA BLE [id number] [place] [id number] SP [id number] U M UNAVAILABLE UNAVAILA BLE MEDICARE [id number] SP [id number] EMEDNY [id number] SP [id number] MEDICARE C [id number] S [id number] E29 MEDICAID [id number] SP [id number] MEDICAID M [id number] S [id number] ANSI-Medicaid [id number] ANSI-Medicare Part B [id number] ANSI-Medicare Part B [id number] ANSI-Medicaid [id number] MEDICARE [id number] ANSI-Medicaid [id number] ANSI-Medicare Part B [id number] ANSI-Medicare Part B [id number] ANSI-Medicaid [id number] ANSI-Medicaid [id number] ANSI-Medicare Part B [id number] Problems, Conditions, and Diagnoses Code Display Name Description Problem Type Effective Dates Data Source(s) K25.5 Chronic or unspecified gastric ulcer wit h perforation Chronic or unspecified gastric ulcer wit Diagnosis 07/04/2021 08:44:06 AM EDT [facility] Z95.0 Presence of cardiac pacemaker Presence of cardiac pace maker Diagnosis 07/04/2021 08:44:06 AM EDT [facility] I48.91 Unspecified atrial fibrillation Unspecified atri al fibrillation Diagnosis 07/04/2021 08:44:06 AM EDT [facility] M19.049 [id number] Osteoarthritis of khalil nd, unspecified laterality, unspecified osteoarthritis type Problem 07/26/2021 12:00:00 AM EDT eCW1 ([facility]) [id number] Anemia Anemia Problem 05/19/2021 12:00:00 AM ED T MEDENT ([facility]) D50.9 [id number] Iron deficiency anemia, unspecif ied iron deficiency anemia type Problem 05/12/2021 12:00:00 AM EDT eCW1 ([facility]) K29.51 [id number] Other chronic gastritis with hemorrhage P roblem 03/25/2021 12:00:00 AM EDT eCW1 ([facility]) D51.8 [id number] Macrocytic anemia with vitamin B12 defici ency Problem 02/11/2021 12:00:00 AM EDT eCW1 ([facility]) I48.91 [id number] Atrial fibrillation with controlled ventr icular rate Problem 02/10/2021 12:00:00 AM EDT eCW1 ([facility]) L40.50 [id number] Psoriatic arthritis Problem 12/20/2020 12:00 :00 AM EST eCW1 ([facility]) [id number] Generalized anxiety disorder Generalized anxiety disor pamela Problem 08/12/2020 12:00:00 AM EDT MEDENT ([facility] ) [id number] Mild cognitive disorder Mild cognitive disorder Proble m 08/12/2020 12:00:00 AM EDT MEDENT ([facility]) Surgeries/Procedures Procedure Description Date Indications Data Source(s) UPPER NDSC BIOPSY SINGLE/MULTIPLE 08/08/2021 12:00:00 AM EDT MEDENT ([facility]) COLSC FLX PROX SPLENIC FLXR RMVL LES SNARE TQ 08/08/20 12:00:00 AM EDT [facility]Wikip[facility] ([facility]) ECG ROUTINE ECG W/LEAST 12 LDS W/I&R <td>POCT AMB EKG</td><td>Routine</td><td>07/04/2021 9:39 AM EDT</td><td> Atrial fibrillation Cardiac pacemaker in situ</td><td> </td> 07/04/2021 09:39:00 AM EDT Cardiac pacemaker in situAtrial fibrillation [facility] Cardiac pacemaker in situ Atrial fibrillation OFFICE OUTPATIENT NEW 30 MINUTES 05/19/2021 12:00:00 A M EDT [facility] ([facility]) BLOOD COUNT COMPLETE AUTO&AUTO DIFRNTL WBC COUNT <td>C BC AND DIFFERENTIAL</td><td>Routine</td><td>05/17/2021</td><td></td><td> </td> 05/17/2021 12:00:00 AM EDT [facility] BLOOD COUNT COMPLETE AUTO&AUTO DIFRNTL WBC COUNT <td>C BC AND DIFFERENTIAL</td><td>Routine</td><td>05/09/2021</td><td></td><td> </td> 05/09/2021 12:00:00 AM EDT [facility] FERRITIN <td>FERRITIN</td><td>Routine </td><td>05/09/2021</td><td></td><td> </td> 05/09/2021 12:00:00 AM EDT [facility] BASIC METABOLIC PANEL CALCIUM TOTAL <td>BASIC METABOLI C PANEL</td><td>Routine</td><td>05/09/2021</td><td></td><td> </td> 05/09/2021 12:00:00 AM EDT [facility] HEPATIC FUNCTION PANEL <td>HEPATIC FUNCTION PANEL</td><td>Routine</td><td>03/21/2021</td><td></td><td> </td> 03/21/2021 12:00:00 AM [facility] BASIC METABOLIC PANEL CALCIUM TOTAL <td>BASIC METABOLI C PANEL</td><td>Routine</td><td>03/21/2021</td><td></td><td> </td> 03/21/2021 12:00:00 AM [facility] BLOOD COUNT COMPLETE AUTO&AUTO DIFRNTL WBC COUNT <td>C BC AND DIFFERENTIAL</td><td>Routine</td><td>02/10/2021</td><td></td><td> </td> 02/10/2021 12:00:00 AM [facility] FERRITIN <td>FERRITIN</td><td>Routine </td><td>02/10/2021</td><td></td><td> </td> 02/10/2021 12:00:00 AM [facility] BASIC METABOLIC PANEL CALCIUM TOTAL <td>BASIC METABOLI C PANEL</td><td>Routine</td><td>02/10/2021</td><td></td><td> </td> 02/10/2021 12:00:00 AM T [facility] BLOOD COUNT COMPLETE AUTO&AUTO DIFRNTL WBC COUNT <td>C BC AND DIFFERENTIAL</td><td>Routine</td><td>01/26/2021</td><td></td><td> </td> 01/26/2021 12:00:00 AM EDT [facility] HEPATIC FUNCTION PANEL <td>HEPATIC FUNCTION PANEL</td><td>Routine</td><td>01/26/2021</td><td></td><td> </td> 01/26/2021 12:00:00 AM EDT [facility] BASIC METABOLIC PANEL CALCIUM TOTAL <td>BASIC METABOLI C PANEL</td><td>Routine</td><td>01/26/2021</td><td></td><td> </td> 01/26/2021 12:00:00 AM T [facility] HEPATIC FUNCTION PANEL <td>HEPATIC FUNCTION PANEL</td><td>Routine</td><td>01/24/2021</td><td></td><td> </td> 01/24/2021 12:00:00 AM EDT [facility] BASIC METABOLIC PANEL CALCIUM TOTAL <td>BASIC METABOLI C PANEL</td><td>Routine</td><td>01/24/2021</td><td></td><td> </td> 01/24/2021 12:00:00 AM [facility] BLOOD COUNT COMPLETE AUTO&AUTO DIFRNTL WBC COUNT <td>C BC AND DIFFERENTIAL</td><td>Routine</td><td>12/20/2020</td><td></td><td> </td> 12/20/2020 12:00:00 AM [facility] C-REACTIVE PROTEIN <td>C-REACTIVE PROTEIN</td><td>Routine</td><td>12/20/2020</td><td></td><td> </td> 12/20/2020 12:00:00 AM [facility] HEPATIC FUNCTION PANEL <td>HEPATIC FUNCTION PANEL</td><td>Routine</td><td>12/20/2020</td><td></td><td> </td> 12/20/2020 12:00:00 AM [facility] BASIC METABOLIC PANEL CALCIUM TOTAL <td>BASIC METABOLI C PANEL</td><td>Routine</td><td>12/20/2020</td><td></td><td> </td> 12/20/2020 12:00:00 AM [facility] SEDIMENTATION RATE RBC NON-AUTOMATED <td>POCT ERYTHROC YTE SEDIMENTATION RATE, NON-AUTOMATED</td><td>Routine</td><td>12/20/2020</td><td></td><td> </td> 12/20/2020 12:00:00 AM [facility] ELECTROENCEPHALOGRAM W/REC AWAKE&ASLEEP 09/27/2020 12: 00:00 AM EST MEDENT ([facility]) ELECTROENCEPHALOGRAM W/REC AWAKE&ASLEEP 09/27/2020 12: 00:00 AM EST MEDENT ([facility]) Results ID Date Data Source [id number] 08/08/2021 12:36:00 PM EDT MEDENT ([facility]) Name Value Range Interpretation Code Description Data Melvi rce(s) Supporting Document(s) Surgical pathology study Laboratory test result MEDENT ([facility]) FINAL DIAGNOSIS Ascending colon polyp, polypectomy: Tubular adenoma 08/08/2021 - 1529 CLINICAL DIAGNOSIS Anemia 08/08/2021 - 1507 GROSS DIAGNOSIS Received in formalin labeled "polyp ascending colon" and consists of fragments of tissue, 0.1 x 0.1 x 0.1 cm. All in one. -MARCO 08/09/2021 - 1133 Signed FAHAD LALA MD 08/09/2021 113 ID Date Data Source [id number] 08/03/2021 09:55:00 AM EDT [facility] Name Value Range Interpretation Code Description Data Melvi rce(s) Supporting Document(s) SARS-CoV-2 (COVID-19) RNA [Presence] in Respiratory specimen by EDMAR with probe detection Not Detected [facility] This lab was ordered by [facility] and reported by [employer] ID Date Data Source [id number] 06/17/2021 10:50:00 AM EDT [facility] Name Value Range Interpretation Code Description Data Melvi rce(s) Supporting Document(s) SARS-CoV-2 (COVID-19) RNA [Presence] in Respiratory specimen by EDMAR with probe detection Not Detected [facility] This lab was ordered by [facility] and reported by [employer] ID Date Data Source VITAMIN D 25-HYDROXY 02/10/2021 12:00:00 AM EDT eCW1 ([facility]) Name Value Range Interpretation Code Description Data Melvi rce(s) Supporting Document(s) 22.2 30.0-100.0 TOTAL 25(OH) VITAMIN D eC W1 ([facility]) ID Date Data Source Basic Metabolic Profile (BMP) 02/10/2021 12:00:00 AM EDT eCW 1 ([facility]) Name Value Range Interpretation Code Description Data Melvi rce(s) Supporting Document(s) 85 70-100 GLUCOSE, FASTING eCW1 ([facility]) 9 7-18 BLOOD UREA NITROGEN eCW1 ([facility]) > 60.0 >45 GLOMERULAR FILTRATION RATE eCW 1 ([facility]) 0.63 0.55-1.30 CREATININE FOR GFR eCW1 ([facility]) 145 136-145 SODIUM LEVEL eCW1 ([facility]) 4.0 3.5-5.1 POTASSIUM SERUM eCW1 ([facility]) 113 98-107 CHLORIDE LEVEL eCW1 ([facility]) 8.9 8.8-10.2 CALCIUM LEVEL eCW1 ([facility]) 29 21-32 CARBON DIOXIDE LEVEL eCW1 ([facility]) ID Date Data Source FERRITIN 02/10/2021 12:00:00 AM EDT eCW1 ([facility]) Name Value Range Interpretation Code Description Data Melvi rce(s) Supporting Document(s) 14 8-252 FERRITIN eCW1 ([facility]) ID Date Data Source CBC - Complete Blood Count 02/10/2021 12:00:00 AM EDT eCW1 ( [facility]) Name Value Range Interpretation Code Description Data Melvi rce(s) Supporting Document(s) 6.0 4.0-10.0 WHITE BLOOD COUNT eCW1 ([facility]) 2.94 4.00-5.40 RED BLOOD COUNT eCW1 ([facility]) 9.3 12.0-15.5 HEMOGLOBIN eCW1 ([facility]) 101.4 80.0-96.0 MEAN CORPUSCULAR VOLUME e CW1 ([facility]) 29.8 36.0-47.0 HEMATOCRIT eCW1 (Critical access hospital) 31.2 32.0-36.5 MEAN CORPUSCULAR HGB CONC eCW1 ([facility]) 31.6 27.0-33.0 MEAN CORPUSCULAR HEMOGLOB IN eCW1 ([facility]) 13.3 11.5-14.5 RED CELL DISTRIBUTION WID TH eCW1 ([facility]) 308 150-450 PLATELET COUNT, AUTOMATED eCW1 ([facility]) ID Date Data Source [id number] 01/24/2021 09:32:00 PM EDT [facility] Name Value Range Interpretation Code Description Data Melvi rce(s) Supporting Document(s) SARS coronavirus 2 RNA [Presence] in Res piratory specimen by EDMAR with probe detection NEGATIVE [facility] This lab was ordered by [facility] a nd reported by [facility]. Procedure Social History Code Duration Value Status Description Data Source(s ) Smoking 07/26/2021 12:00:00 AM EDT Former Smoker completed Former Smoker eCW1 ([facility]) Smoking 07/26/2021 12:00:00 AM EDT Former Smoker completed Former Smoker [facility] ([facility]) Smoking 05/12/2021 12:00:00 AM EDT Former Smoker completed Former Smoker eCW1 ([facility]) Smoking 05/12/2021 12:00:00 AM EDT Former Smoker completed Former Smoker eCW1 ([facility]) Smoking 05/12/2021 12:00:00 AM EDT Former Smoker completed Former Smoker eCW1 ([facility]) Smoking 05/12/2021 12:00:00 AM EDT Former Smoker completed Former Smoker eCW1 ([facility]) Smoking 05/12/2021 12:00:00 AM EDT Former Smoker completed Former Smoker eCW1 ([facility]) Smoking 03/25/2021 12:00:00 AM EDT Former Smoker completed Former Smoker eCW1 ([facility]) Smoking 02/10/2021 12:00:00 AM EDT Former Smoker completed Former Smoker eCW1 ([facility]) Smoking 02/10/2021 12:00:00 AM EDT Former Smoker completed Former Smoker eCW1 ([facility]) Smoking 02/10/2021 12:00:00 AM EDT Former Smoker completed Former Smoker eCW1 ([facility]) Smoking 02/10/2021 12:00:00 AM EDT Former Smoker completed Former Smoker eCW1 ([facility]) Smoking 12/20/2020 12:00:00 AM EST Former Smoker completed Former Smoker eCW1 ([facility]) Smoking 12/20/2020 12:00:00 AM EST Former Smoker completed Former Smoker eCW1 ([facility]) Smoking 12/20/2020 12:00:00 AM EST Former Smoker completed Former Smoker eCW1 ([facility]) Smoking 12/20/2020 12:00:00 AM EST Former Smoker completed Former Smoker eCW1 ([facility]) Smoking 12/20/2020 12:00:00 AM EST Former Smoker completed Former Smoker eCW1 ([facility]) Smoking 12/20/2020 12:00:00 AM EST Former Smoker completed Former Smoker eCW1 ([facility]) Vital Signs ID Date Data Source UNK Name Value Range Interpretation Code Description Data Source(s) Body weight 141.0 [lb_av] 141.0 [lb_av] eCW1 ([facility]) Body weight 63.96 kg 63.96 kg eCW1 ([facility]) Body height 66 [in_i] 66 [in_i] eCW1 ([facility]) Body mass index (BMI) [Ratio] 22.76 kg/m2 22.76 kg/m2 eCW1 ([facility]) Heart rate 81 /min 81 /min eCW1 ([facility]) Respiratory rate 20 /min 20 /min eCW1 ([facility]) Body temperature 98.4 [degF] 98.4 [degF] eCW1 ( [facility]) Systolic blood pressure 122 mm[Hg] 122 mm[Hg] e CW1 ([facility]) Diastolic blood pressure 74 mm[Hg] 74 mm[Hg] eCW1 ([facility]) Systolic blood pressure 148 mm[Hg] 148 mm[Hg] [facility] Diastolic blood pressure 74 mm[Hg] 74 mm[Hg] [facility] Heart rate 60 /min 60 /min [facility] Body height 167.6 cm 167.6 cm [facility] Body weight 64.32 kg 64.32 kg [facility] Body mass index (BMI) [Ratio] 22.89 kg/m2 22.89 kg/m2 [facility] Oxygen saturation in Arterial blood by Pulse oximetry 98 % 98 % [facility] Systolic blood pressure 104 mm[Hg] 104 mm[Hg] M EDENT ([facility]) Diastolic blood pressure 64 mm[Hg] 64 mm[Hg] MEDENT ([facility]) Heart rate 86 /min 86 /min [facility] ([facility]) Body height 66 [in_i] 66 [in_i] [facility] ([facility]) 5'6" Body weight 144.00 [lb_av] 144.00 [lb_av] MEDEN T ([facility]) Body mass index (BMI) [Ratio] 23.2 kg/m2 23.2 k g/m2 MEDENT ([facility]) Body weight 65.318 kg 65.318 kg [facility] ([facility]) Body temperature 97.3 [degF] 97.3 [degF] MEDENT ([facility]) Body weight 146 [lb_av] 146 [lb_av] eCW1 ([facility]) Body height 66 [in_i] 66 [in_i] eCW1 ([facility]) Body mass index (BMI) [Ratio] 23.56 kg/m2 23.56 kg/m2 eCW1 ([facility]) Heart rate 91 /min 91 /min eCW1 ([facility]) Respiratory rate 20 /min 20 /min eCW1 ([facility]) Body temperature 98.3 [degF] 98.3 [degF] eCW1 ( [facility]) Systolic blood pressure 122 mm[Hg] 122 mm[Hg] e CW1 ([facility]) Diastolic blood pressure 62 mm[Hg] 62 mm[Hg] eCW1 ([facility]) Body weight 135 [lb_av] 135 [lb_av] eCW1 ([facility]) Body height 66 [in_i] 66 [in_i] eCW1 ([facility]) Body mass index (BMI) [Ratio] 21.79 kg/m2 21.79 kg/m2 eCW1 ([facility]) Heart rate 79 /min 79 /min eCW1 ([facility]) Respiratory rate 20 /min 20 /min eCW1 ([facility]) Body temperature 97.5 [degF] 97.5 [degF] eCW1 ( [facility]) Systolic blood pressure 120 mm[Hg] 120 mm[Hg] e CW1 ([facility]) Diastolic blood pressure 80 mm[Hg] 80 mm[Hg] eCW1 ([facility]) Body mass index (BMI) [Ratio] 24.40 kg/m2 24.40 kg/m2 eCW1 ([facility]) Heart rate 91 /min 91 /min eCW1 ([facility]) Respiratory rate 18 /min 18 /min eCW1 ([facility]) Body temperature 97.4 [degF] 97.4 [degF] eCW1 ( [facility]) Body weight 151.2 [lb_av] 151.2 [lb_av] eCW1 ([facility]) Body height 66 [in_i] 66 [in_i] eCW1 ([facility]) Systolic blood pressure 120 mm[Hg] 120 mm[Hg] e CW1 ([facility]) Diastolic blood pressure 76 mm[Hg] 76 mm[Hg] eCW1 ([facility]) Body weight 150.4 [lb_av] 150.4 [lb_av] eCW1 ([facility]) Body weight 68.2 kg 68.2 kg eCW1 ([facility]) Body height 66 [in_i] 66 [in_i] eCW1 ([facility]) Body mass index (BMI) [Ratio] 24.27 kg/m2 24.27 kg/m2 eCW1 ([facility]) Heart rate 90 /min 90 /min eCW1 ([facility]) Respiratory rate 18 /min 18 /min eCW1 ([facility]) Body temperature 98.1 [degF] 98.1 [degF] eCW1 ( [facility]) Systolic blood pressure 148 mm[Hg] 148 mm[Hg] e CW1 ([facility]) Diastolic blood pressure 70 mm[Hg] 70 mm[Hg] eCW1 ([facility]) Respiratory rate 14 /min 14 /min MEDENT ( [facility] ) Body height 66 [in_i] 66 [in_i] MEDENT ([facility] ) 5'6" [place] body weight 130 [lb_av] 130 [lb_av] MEDEN T ([facility] ) Systolic blood pressure 155 mm[Hg] 155 mm[Hg] M EDENT ([facility] ) Diastolic blood pressure 80 mm[Hg] 80 mm[Hg] MEDENT ([facility] ) Heart rate 68 /min 68 /min MEDENT ([facility] ) Body weight 152.00 [lb_av] 152.00 [lb_av] TOMASZ T ([facility] ) Body mass index (BMI) [Ratio] 24.5 kg/m2 24.5 k g/m2 MEDJANE ([facility] ) Patient Treatment Plan of Care Planned Activity Planned Date Details Description Data Source (s) Diclofenac Sodium 0.01 MG/MG Topical Gel [Voltaren] 07/26/20 12:00:00 AM EDT eCW1 ([facility]) Diclofenac Sodium 0.01 MG/MG Topical Gel [Voltaren] 07/26/20 12:00:00 AM EDT eCW1 ([facility]) Hydroxychloroquine Sulfate 200 MG Oral Tablet 06/18/2021 12:00:00 A M EDT [facility] Famotidine 20 MG Oral Tablet 06/07/2021 12:00:00 AM EDT [facility] Ondansetron 4 MG Oral Tablet 06/07/2021 12:00:00 AM EDT [facility] Boost High Protein - 05/12/2021 12:00:00 AM EDT eCW1 ([facility]) Docusate Sodium 100 MG Oral Capsule [Colace] 05/12/2021 12:00:00 AM EDT eCW1 ([facility]) Boost High Protein - 05/12/2021 12:00:00 AM EDT eCW1 ([facility]) Docusate Sodium 100 MG Oral Capsule [Colace] 05/12/2021 12:00:00 AM EDT eCW1 ([facility]) Boost High Protein - 05/12/2021 12:00:00 AM EDT eCW1 ([facility]) Docusate Sodium 100 MG Oral Capsule [Colace] 05/12/2021 12:00:00 AM EDT eCW1 ([facility]) Boost High Protein - 05/12/2021 12:00:00 AM EDT eCW1 ([facility]) Docusate Sodium 100 MG Oral Capsule [Colace] 05/12/2021 12:00:00 AM EDT eCW1 ([facility]) Boost High Protein - 05/12/2021 12:00:00 AM EDT eCW1 ([facility]) Docusate Sodium 100 MG Oral Capsule [Colace] 05/12/2021 12:00:00 AM EDT eCW1 ([facility]) Ergocalciferol [id number] UNT Oral Capsule 04/18/2021 12:00:00 AM EDT [facility] 24 HR metoprolol succinate 25 MG Extended Release Oral Tablet 04/03/2021 12:00:00 AM EDT [facility] rivaroxaban 20 MG Oral Tablet [Xarelto] 03/31/2021 12:00:00 AM EDT [facility] Ondansetron 4 MG Oral Tablet 03/25/2021 12:00:00 AM EDT eCW1 ([facility]) Ergocalciferol 2000 UNT Oral Tablet 09/10/2017 12:00:00 AM EST [facility] Vitamin B 12 1 MG Extended Release Oral Tablet 09/10/2017 12:00:00 AM EST [facility]
--- OUTSIDE RECORDS SUMMARY | 2021-08-29 11:45 | CCD | Continuity of Care Document ---
Author Author Marvin MATHIAS M.D. Organization Unknown Address [address] [place] [address] Phone [phone] Care Team Providers Care [employer] Name Role Phone Nohemi Leon DUMPER AUTM [phone] Problems Active Problems Provider Date Anemia Tyrone [...] Qnty Indications Ordering Provide r Date Sutab [id number] Tablets as directed 1box Tyrone Mathias M.D. [...] H/L Range Note Laboratory test finding 08/08/[address] [address] Pathology Request For Service (SEE NOTE) 1 1 FINAL DIAGNOSIS Ascending colon polyp, polypectomy: Tubular adenoma 08/08/2021 - 1529 CLINICAL DIAGNOSIS Anemia 08/08/2021 - 1507 GROSS DIAGNOSIS Received in formalin labeled "polyp ascending colon" and consists of fragments of tissue, 0.1 x 0.1 x 0.1 cm. All in one. -OA 08/09/2021 - 1134 Signed FAHAD LALA MD 08/09/2021 1134 Procedures Date Code Description Status 05/19/2021 23667 Office/Outpatient [facility] 30 -44 Minutes Completed Medical Devices Description No Information Available Encounters Type Date Location Provider Dx Diagnosis Office Visit 05/19/2021 3:00p Main Office Tyrone Mathias M.D. D 64.9 Anemia, unspecified Assessments Date Code Description Provider 05/19/2021 D64.9 Anemia, unspecified Tyrone chao M.D. [...] Description No Information Available Referrals Refer to Dr Reason for Referral Status Appt Date Latisha [...] THOSE REPORTS SOON THEY BECOME AVAILABLE. Created [address] [place] [address] [phone]
--- OUTSIDE RECORDS SUMMARY | 2021-08-29 11:45 | CCD ---
Author Author [facility] Organization [facility] Address Unknown Phone Unavailable Care Team Providers Care Certified Medical Dosimetrist Name Role Phone Laura Leon Unavailable PROBLEMS Type Condition ICD9-CM Code [id number] Code Onset Dates Condition S tatus W/U Status Risk SNOMED Code Notes Problem History of bariatric surgery Z98.84 Active confirme d 812325199 Problem Rheumatoid arthritis, unspecified M06.9 Active con firmed 95792497 Problem History of nicotine dependence Z87.891 Active confi rmed 60882846 Problem Chronic atrial fibrillation I48.2 Active confirmed 149112431 Problem Vasomotor rhinitis J30.0 Active confirmed 8 544365 Problem Vitamin D deficiency, unspecified E55.9 Active con firmed 30410129 Problem Other hyperlipidemia E78.4 Active confirmed 32556496 Problem Psoriasis L40.9 Active confirmed 7628654 Problem Primary osteoarthritis involving multiple joints M 15.0 Active confirmed 254164200 Problem Systemic involvement of connective tissue M35.9 Active confirmed 546921123 Problem Cervical facet joint syndrome M53.82 Active confirm ed 985748368 Problem Pain in joint, multiple sites M25.50 Active confirm ed 46218666 Problem Arthropathy M12.9 Active confirmed 59519845 3 Problem Pain of multiple sites R52 Active confirmed 04110945 Problem History of rheumatoid arthritis Z87.39 Active confi rmed 141510685 Problem Gastric ulcer with hemorrhage, unspecified chronicity K25.4 Active confirmed 86867342 Problem Allergic rhinitis, unspecified seasonality, unspecifie d trigger J30.9 Active confirmed 79066397 Problem Hypercholesterolemia E78.00 Active confirmed 43270634 Problem History of gastric ulcer Z87.19 Active confirmed 211706525 Problem Longstanding persistent atrial fibrillation I48.11 Active confirmed 012889989 Problem Iron deficiency anemia, unspecified iron deficiency an emia type D50.9 Active confirmed 72748468 Problem B12 deficiency E53.8 Active confirmed 91835 4004 Problem Other chronic gastritis with hemorrhage K29.51 Active confirmed 5671074 Problem Morbid obesity due to excess calories E66.01 Ac tive confirmed 253269982 Problem Myalgia M79.1 Active confirmed 54369544 Problem S/P gastric bypass Z98.84 Active confirmed 6 70196249 Problem Psoriatic arthritis L40.50 Active confirmed 155200333 Problem Macrocytic anemia with vitamin B12 deficiency D51. 8 Active confirmed 29228326 Problem Atrial fibrillation with controlled ventricular rate I48.91 Active confirmed 45436232 ALLERGIES Allergen (clinical drug ingredient) Drug/Non Drug Allergy do cumented on EMR Reaction Allergy Type Onset Date Status ENVIRONMENTAL Unknown Non Drug Allergy Activ e ENCOUNTERS from 1950 to 2021-06-10 Encounter Location Date Provider Diagnosis [facility] Rheumatology [address] [place] [address] [place] [address] Jun, [facility] IMMUNIZATIONS Vaccine Route Administration Date Status COVID-19 dose #1 given elsewhere Unspecified Unknown March 25, 2021 Administered COVID-19 dose #2 given elsewhere Unspecified Unknown March 25, 2021 Administered Influenza 18 yrs & older Flublok IM Intramuscular Jul 29, 2020 Administered Influenza Pharmacy Given Unknown Aug 26, 2018 Adminis tered Influenza Pharmacy Given Unknown Aug 27, 2019 Adminis tered Influenza 6mo & up Fluzone IM Intramuscular Jul 19, 2012 Admi nistered Pneumococcal Adult 0.5mL Pneumovax 23 IM Intramuscular Sep 11 018 Administered TDAP 0.5mL (Boostrix) IM Intramuscular Oct 08, 2014 Administe red Pneumococcal 0.5mL Prevnar 13 IM Intramuscular Oct [...] Education Language: Question Answer Notes Languages spoken: Thai Baptist: Question Answer Notes Baptist No presybeterian beliefs that would impact health care. Sexual [...] REASON FOR REFERRAL No Information VITAL SIGNS No information MEDICATIONS Medication SIG (Take, Route, Frequency, Duration) Notes Start Da te End Date Status Drisdol 1.25 MG (88692 UT) 1 capsule Orally once weekly for 90 d ay(s) Feb, Active Colace 100 MG 1 capsule as needed Orally Once a day for 30 day (s) May, Active Pantoprazole Sodium 40 MG TAKE ONE TABLET BY MOUTH TWICE DAILY Oral D aily Active Hydroxychloroquine Sulfate 200 MG take one tablet by m outh once daily Oral once daily for 90 days has not taken for approx. 1 month Active Famotidine 20 MG 1 tablet at bedtime as needed Orally twice hoda y for 30 Days Active Multi For Her - 1 tab Orally once daily Active Boost High Protein - 240 ml Orally Daily for 30 days 2020 Active Ascorbic Acid 500 MG 1 tablet Orally Once a day for 30 day(s) Active Sertraline HCl 50 MG TAKE ONE TABLET BY MOUTH AT BEDTIME Oral for 90 Active Ferrous Sulfate 325 MG 1 tab Orally twice daily for 30 Days Active Metoprolol Succinate 25 MG as directed Orally daily Active Ondansetron HCl 4 MG 1 tablet Orally three times daily as needed for nausea or vomiting for 10 day(s) Active Fluticasone Propionate 50 MCG/ACT 1 spray in each nost ril Nasally Twice a day for 30 Active Xarelto 20 mg 1 tablet orally once a day Active Vitamin B-12 1000 MCG 1 tablet Orally Once a day with meal Feb, Active PROCEDURES No Information RESULTS No Results REASON FOR VISIT Procedures w/ Dr Mathias (GI) MEDICAL (GENERAL) HISTORY Type Description Date Medical History RA (Dr Hickey, pain clinic) Medical History Degenerative disc disease/ Chr neck pain ([place]) Medical History hyperlipidemia Medical History psoriasis, controlled Medical History morbid obesity Medical History Vit D def Medical History b12 def Medical History h/o wilder dep - AQUILES 10/19, FEV1 2.33. Medical History [...] CVP Medical History Gastrojejunostomy ulcer Surgical History shoulder surgery x 2 Surgical History carpal tunnel release/michelet. Surgical History D&C Surgical History gastric bypass - Dr Flores, [facility] atri 06/2013 Surgical History pacemaker 09/01/17 Surgical History Colonoscopy; repeat 10 years - Dr Infante eitamara 2014 Surgical History Expiratory laparotomy, upper GI Endoscop y, [facility] - Dr Kidd 03/24/19 Surgical History EGD 01/2021 Hospitalization History shoulder surgery 07/12 Hospitalization History [facility] gastric surgery 06/06 013 Hospitalization History Afib 08/30/17- 7 Hospitalization History pacemaker 09/03/17- 7 Hospitalization History Melena, ulcers, UGI bleed 01/2021 Goals Section No Information Health Concerns No Information MEDICAL EQUIPMENT No Information MENTAL STATUS No Information FUNCTIONAL STATUS No Information ASSESSMENTS No Information PLAN OF TREATMENT Medication Medication Name Sig Start Date Stop Date Famotidine 20 MG 1 tablet at bedtime as needed Orally twice hoda y for 30 Days Hydroxychloroquine Sulfate 200 MG take one tablet by m outh once daily Oral once daily for 90 days Colace 100 MG 1 capsule as needed Orally Once a day for 30 day (s) May, Pantoprazole Sodium 40 MG TAKE ONE TABLET BY MOUTH TWICE DAILY O ral Daily Ondansetron HCl 4 MG 1 tablet Orally three times daily as needed for nausea or vomiting for 10 day(s) Boost High Protein - 240 ml Orally Daily for 30 days May, Ferrous Sulfate 325 MG 1 tab Orally twice daily for 30 Days Next Appt Details Provider Name:Laura M Edward, 2021-07-26 03:15:00 PM, [address] [facility], , [place], [address], Provider Name:Nohemi Edwrad, 2021-08-12 09:1 5:00 AM, [facility] [facility], , [place], [address], Insurance Providers Payer Name Payer Address Payer Phone Insured Name Patient Relati onship to Insured Coverage Start Date Coverage End Date MEDICARE Part A and B [address] [facility] [phone] MARVIN JOHNSON self MEDICAID [facility] Tapgage [address] [facility] [id number] MARVIN JOHNSON self
--- OUTSIDE RECORDS SUMMARY | 2021-08-29 11:45 | CCD ---
Author Author [facility] Organization [facility] Address Unknown Phone Unavailable Care Team Providers Care Work Study Student Name Role Phone Laura Leon Unavailable PROBLEMS ALLERGIES ENCOUNTERS from 1950 to 2021-06-07 IMMUNIZATIONS SOCIAL HISTORY REASON FOR REFERRAL No Information VITAL SIGNS MEDICATIONS PROCEDURES No Information RESULTS No Results REASON FOR VISIT MEDICAL (GENERAL) HISTORY Goals Section Health Concerns MEDICAL EQUIPMENT No Information MENTAL STATUS FUNCTIONAL STATUS ASSESSMENTS No Information PLAN OF TREATMENT Insurance Providers
--- OUTSIDE RECORDS SUMMARY | 2021-08-29 11:45 | CCD ---
Author Author [facility] Organization [facility] Address Unknown Phone Unavailable Care Team Providers Care Rn Prior Authorization Name Role Phone Laura Leon Unavailable PROBLEMS Type Condition ICD9-CM Code UPC50-VL Code Onset Dates Condition S tatus W/U Status Risk SNOMED Code Notes Problem History of nicotine dependence Z87.891 Active confi rmed 78585914 Problem Vasomotor rhinitis J30.0 Active confirmed 8 170442 Problem Rheumatoid arthritis, unspecified M06.9 Active con firmed 08991776 Problem Other hyperlipidemia E78.4 Active confirmed 77648693 Problem Chronic atrial fibrillation I48.2 Active confirmed 415798878 Problem Morbid obesity due to excess calories E66.01 Ac tive confirmed 894195226 Problem Vitamin D deficiency, unspecified E55.9 Active con firmed 18432437 Problem Hypercholesterolemia E78.00 Active confirmed 19622979 Problem Psoriasis L40.9 Active confirmed 3981625 Problem History of bariatric surgery Z98.84 Active confirme d 753521530 Problem Arthropathy M12.9 Active confirmed 44234930 3 Problem Systemic involvement of connective tissue M35.9 Active confirmed 947798338 Problem History of rheumatoid arthritis Z87.39 Active confi rmed 931187222 Problem Pain in joint, multiple sites M25.50 Active confirm ed 53737829 Problem Allergic rhinitis, unspecified seasonality, unspecifie d trigger J30.9 Active confirmed 76675365 Problem Pain of multiple sites R52 Active confirmed 91095949 Problem Primary osteoarthritis involving multiple joints M 15.0 Active confirmed 834249406 Problem Gastric ulcer with hemorrhage, unspecified chronicity K25.4 Active confirmed 97128841 Problem History of gastric ulcer Z87.19 Active confirmed 915529558 Problem Longstanding persistent atrial fibrillation I48.11 Active confirmed 795529545 Problem S/P gastric bypass Z98.84 Active confirmed 6 19986035 Problem Other chronic gastritis with hemorrhage K29.51 Active confirmed 1880668 Problem Myalgia M79.1 Active confirmed 60012621 Problem Osteoarthritis of hand, unsp ecified laterality, unspecified osteoarthritis type M19.049 Active confirmed 74299369 Problem B12 deficiency E53.8 Active confirmed 07909 4004 Problem Cervical facet joint syndrome M53.82 Active confirm ed 639698997 Problem Psoriatic arthritis L40.50 Active confirmed 621450041 Problem Macrocytic anemia with vitamin B12 deficiency D51. 8 Active confirmed 05913682 Problem Atrial fibrillation with controlled ventricular rate I48.91 Active confirmed 70641609 Problem Iron deficiency anemia, unspecified iron deficiency an emia type D50.9 Active confirmed 24693166 ALLERGIES Allergen (clinical drug ingredient) Drug/Non Drug Allergy do cumented on EMR Reaction Allergy Type Onset Date Status ENVIRONMENTAL Unknown Non Drug Allergy Activ e ENCOUNTERS from 1950 to 2021-07-28 Encounter Location Date Provider Diagnosis [facility] Rheumatology [address] [place] [address] [place] [address] Jul, [facility] IMMUNIZATIONS Vaccine Route Administration Date Status COVID-19 [...] Education Language: Question Answer Notes Languages spoken: Latvian Protestant: Question Answer Notes Protestant No jain beliefs that would impact health care. Sexual [...] Notes Start Da te End Date Status Acetaminophen 325 MG 1 tablet as needed Orally every 4 hrs Active Colace 100 MG 1 capsule as needed Orally Once a day for 30 day (s) May, Active Boost High Protein - 240 ml Orally Daily for 30 days 2020 Active Xarelto 20 mg 1 tablet orally once a day Active Metoprolol Succinate 25 MG as directed Orally daily Active Vitamin D (Ergocalciferol) 1.25 MG (89253 UT) 1 capsule Orally weekly Active Famotidine 20 MG 1 tablet at bedtime as needed Orally twice hoda y for 30 Days Active Hydroxychloroquine Sulfate 200 MG take one tablet by m outh once daily Oral once daily for 90 days has not taken for approx. 1 month Active Ferrous Sulfate 325 MG 1 tab Orally twice daily for 30 Days Active Pantoprazole Sodium 40 MG TAKE ONE TABLET BY MOUTH TWICE DAILY Oral D aily Active Ondansetron HCl 4 MG 1 tablet Orally three times daily as needed for nausea or vomiting for 10 day(s) Active Multi For Her - 1 tab Orally once daily Active Calcium Citrate + D 250-200 MG-UNIT 1 tablet Orally Twice a day for 30 day(s) Active Voltaren 1 % apply 4 g of 1% gel to affec migue area Transdermal four times daily as needed for 30 days Jul, Active PROCEDURES No Information RESULTS No Results REASON FOR VISIT Prior Authorization Diclofenac Gel 1% MEDICAL (GENERAL) HISTORY Type Description Date Medical [...] x 2 Surgical History Carpal tunnel release/bilateral 9 Surgical History D&C Surgical History Gastric bypass - Dr Flores, [facility] atric 06/2013 Surgical History Pacemaker 09/01/17 Surgical History Colonoscopy; repeat 10 years - Dr Naresh currie 2014 Surgical History Expiratory laparotomy, upper GI Endoscop y, [facility] - Dr Kidd 03/24/19 Surgical History EGD 01/2021 Hospitalization History Shoulder surgery 07/12 Hospitalization History [facility] gastric surgery 06/06 013 Hospitalization History Atrial fibibrillation 08/30/17-09/02 Hospitalization History Pacemaker 09/03/17- 7 Hospitalization History Melena, ulcers, UGI bleed 01/2021 Goals Section No Information Health Concerns No Information MEDICAL EQUIPMENT No Information MENTAL STATUS No Information FUNCTIONAL STATUS No Information ASSESSMENTS No Information PLAN OF TREATMENT Medication Medication Name Sig Start Date Stop Date Voltaren 1 % apply 4 g of 1% gel to affec migue area Transdermal four times daily as needed for 30 days Jul, Hydroxychloroquine Sulfate 200 MG take one tablet by m outh once daily Oral once daily for 90 days Next Appt Details Provider Name:Nohemi Leon, 2021-08-12 09:1 5:00 AM, [address] [facility], , [place], [address], Provider Name:Laura Leon, 2021-10-21 11:15:00 AM, [address] [place] [address], , [place], [address], Insurance Providers Payer Name Payer Address Payer Phone Insured Name Patient Relati onship to Insured Coverage Start Date Coverage End Date MEDICAID [employer] [address] [facility] [id number] [phone] MARVIN JOHNSON self MEDICARE Part A and B [address] [facility] [address] MARVIN JOHNSON self
[2021-08-29] MEDS ORDERED: NS 1,000 ML IV ONE (12:15)
[2021-08-29] MEDS ORDERED: fentaNYL 100 MCG/2 ML INJECTION (J3010) As Ordered ONE (12:20)
[2021-08-29] MEDS ORDERED: LIDOCAINE 2% 100MG/5ML SDV (FOR ANES.) As Ordered ONE (12:20)
[2021-08-29] MEDS ORDERED: propofoL 200 MG/20 ML VIAL As Ordered ONE (12:20)
[2021-08-29] MEDS ORDERED: PHENYLephrine 500MCG 5ML (100MCG/ML) SYRINGE As Ordered ONE (12:36)
--- NOTE | 2021-08-29 13:13 | ROOR ---
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 Procedure: Pre-Anesthesia Assessment: - The heart rate, respiratory rate, oxygen saturations, blood pressure, adequacy of pulmonary ventilation, and response to care were monitored throughout the procedure. The Endoscope was introduced through the mouth, and advanced to the jejunum. The upper GI endoscopy was accomplished without difficulty. The patient tolerated the procedure well. Findings: The Z-line was regular and was found 45 cm from the incisors. Evidence of a gastric bypass was found. A gastric pouch with a normal size was found containing ulceration. The staple line appeared intact. The gastrojejunal anastomosis was characterized by ulceration. This was traversed. The [id number] limb measured 51 cm from the incisors and was characterized by ulceration. Pouch length is approximately 5.5 cms X 5.0 cm in width. The exam of the duodenum was otherwise normal. Impression: - Z-line regular, 45 cm from the incisors. - Gastric bypass with a normal-sized pouch and intact staple line. Gastrojejunal anastomosis characterized by ulceration. - No specimens collected. - The examination was otherwise normal. Recommendation: - Patient has a contact number available for emergencies. The signs and symptoms of potential delayed complications were discussed with the patient. Return to normal activities tomorrow. Written discharge instructions were provided to the patient. - Discharge patient to home. - Continue present medications. - Resume Xarelto (rivaroxaban) at prior dose today. - Resume previous diet. - Return to Bariatric clinic at appointment to be scheduled. - The findings and recommendations were discussed with the patient. Procedure Code(s): --- Professional --- 26592, Esophagogastroduodenoscopy, flexible, transoral; diagnostic, including collection of specimen(s) by brushing or washing, when performed (separate procedure) Diagnosis Code(s): --- Professional --- K28.9, Gastrojejunal ulcer, unspecified as acute or chronic, without hemorrhage or perforation K28.4, Chronic or unspecified gastrojejunal ulcer with hemorrhage CPT copyright 2019 [employer]. All rights reserved. The codes documented in this report are preliminary and upon electronic warfare technician review may be revised to meet current compliance requirements. Tyrone Mathias MD Tyrone Mathias MD 08/29/2021 1:12:44 PM Electronically signed by Tyrone Mathias MD Number of Addenda: 0 Note Initiated On: 08/29/2021 12:55 PM Estimated Blood Loss: Estimated blood loss: none.
[2021-08-29 13:25] VITALS: BP 171/80
== END 2021-08-29 13:34 | disposition home or self-care (01) ==
LOC: M OPP 11:41
PROVIDERS: ATTEND Internal Medicine Gastroenterology
DX: K28.4 Chronic or unspecified gastrojejunal ulcer with hemorrhage (principal); K64.9 Unspecified hemorrhoids; Z79.899 Other long term (current) drug therapy; Z98.84 Bariatric surgery status; Z87.891 Personal history of nicotine dependence
CPT/HCPCS: 43235; J2370; J3010

== ENCOUNTER 2021-10-03 12:14 | Inpatient (IN) | payer MEDICARE, MEDICAID ==
[~2021-10-03] VITALS: Ht 167.6 cm; Wt 58.2 kg
[2021-10-03] MEDS ORDERED: PANTOPRAZOLE 40MG VIAL (C9113 PER 1) IV ONE (14:00)
[2021-10-03 14:50] LABS: BASO % 0.3 % (0.0-1.0); HEMATOCRIT 23.2 % (36.0-47.0); LYMPH # 0.7 10^3/uL (1.5-5.0); LYMPH % 5.2 % (24.0-44.0); MEAN CORPUSCULAR HEMOGLOBIN 22.9 pg (27.0-33.0); MEAN CORPUSCULAR HGB CONC 28.9 g/dl (32.0-36.5); MEAN CORPUSCULAR VOLUME 79.5 fl (80.0-96.0); MONO # 0.8 10^3/uL (0.0-0.8); MONO % 5.4 % (2.0-8.0); NEUTROPHILS # 12.4 10^3/uL (1.5-8.5); NEUTROPHILS % 88.7 % (36.0-66.0); PLATELET COUNT, AUTOMATED 405 10^3/uL (150-450); RED BLOOD COUNT 2.92 10^6/uL (4.00-5.40)
[2021-10-03 14:54] LABS: HEMOGLOBIN 6.7 g/dl (12.0-15.5)
[2021-10-03 14:55] LABS: INR 1.23
[2021-10-03] MEDS ORDERED: FAMO20TA5 PO (15:12)
[2021-10-03] MEDS ORDERED: vitamin d3 PO (15:12)
[2021-10-03 15:24] LABS: ALBUMIN 2.9 GM/DL (3.2-5.2); ALT/SGPT 20 U/L (12-78); BILIRUBIN,DIRECT 0.1 MG/DL (0.0-0.2); BILIRUBIN,TOTAL 0.4 MG/DL (0.2-1.0); BLOOD UREA NITROGEN 26 MG/DL (7-18); CALCIUM LEVEL 8.8 MG/DL (8.8-10.2); CARBON DIOXIDE LEVEL 28 MEQ/L (21-32); CHLORIDE LEVEL 108 MEQ/L (98-107); GLOMERULAR FILTRATION RATE > 60.0 (>45); GLUCOSE, FASTING 119 MG/DL (70-100); LIPASE 25 U/L (73-393); POTASSIUM SERUM 4.2 MEQ/L (3.5-5.1); SODIUM LEVEL 144 MEQ/L (136-145); TOTAL PROTEIN 6.2 GM/DL (6.4-8.2)
[2021-10-03] MEDS ORDERED: FUROSEMIDE 20MG/2ML VIAL (J1940) IV ONE (16:45)
[2021-10-03 17:07] LABS: RSV AMPLIFICATION NEGATIVE (NEGATIVE)
[2021-10-03] MEDS: PANTOPRAZOLE SODIUM 40 MG in D5W 50 ML IV SCH ×2 (17:31→22:50)
[2021-10-03] MEDS ORDERED: D31000TA2 PO (17:56)
[2021-10-03] MEDS ORDERED: HOME MED LIST COMPLETE! XX SCH (18:00)
[2021-10-03 18:59] VITALS: BP 141/79
[2021-10-03 19:54] VITALS: BP 114/57
[2021-10-03 21:58] VITALS: BP 112/61
[2021-10-03 22:13] VITALS: BP 94/52
[2021-10-03 23:13] VITALS: BP 107/55
[2021-10-03 23:58] VITALS: BP 123/62
[2021-10-04] VITALS (13 sets, daily range): BP systolic 101–138; BP diastolic 55–81
[2021-10-04] MEDS ORDERED: FUROSEMIDE 20MG/2ML VIAL (J1940) IV ONE (02:20)
[2021-10-04] MEDS: PANTOPRAZOLE SODIUM 40 MG in D5W 50 ML IV SCH ×5 (03:13→22:44)
[2021-10-04 06:10] LABS: BASO % 0.4 % (0.0-1.0); EOS % 0.2 % (0.0-3.0); HEMATOCRIT 32.6 % (36.0-47.0); LYMPH # 1.3 10^3/uL (1.5-5.0); LYMPH % 13.9 % (24.0-44.0); MEAN CORPUSCULAR HEMOGLOBIN 25.5 pg (27.0-33.0); MEAN CORPUSCULAR HGB CONC 31.3 g/dl (32.0-36.5); MEAN CORPUSCULAR VOLUME 81.5 fl (80.0-96.0); MONO # 0.8 10^3/uL (0.0-0.8); MONO % 8.6 % (2.0-8.0); NEUTROPHILS # 7.1 10^3/uL (1.5-8.5); NEUTROPHILS % 76.7 % (36.0-66.0); PLATELET COUNT, AUTOMATED 310 10^3/uL (150-450); WHITE BLOOD COUNT 9.3 10^3/uL (4.0-10.0)
[2021-10-04 06:16] LABS: HEMOGLOBIN 10.2 g/dl (12.0-15.5)
[2021-10-04 06:39] LABS: BLOOD UREA NITROGEN 18 MG/DL (7-18); CALCIUM LEVEL 8.5 MG/DL (8.8-10.2); CARBON DIOXIDE LEVEL 32 MEQ/L (21-32); CHLORIDE LEVEL 103 MEQ/L (98-107); GLOMERULAR FILTRATION RATE > 60.0 (>45); GLUCOSE, FASTING 106 MG/DL (70-100); POTASSIUM SERUM 3.2 MEQ/L (3.5-5.1); SODIUM LEVEL 140 MEQ/L (136-145)
[2021-10-04] MEDS ORDERED: POTASSIUM CHLORIDE 10MEQ SR TABLET PO ONE (07:45)
[2021-10-04 12:14] LABS: HEMATOCRIT 29.6 % (36.0-47.0); HEMOGLOBIN 9.4 g/dl (12.0-15.5)
[2021-10-04 18:20] LABS: HEMATOCRIT 29.4 % (36.0-47.0); HEMOGLOBIN 9.2 g/dl (12.0-15.5)
[2021-10-04] MEDS: ACETAMINOPHEN TAB 650MG DOSE (2X325MG) PO PRN (22:41)
[2021-10-05] VITALS: BP 119/67
[2021-10-05 00:13] LABS: HEMATOCRIT 29.3 % (36.0-47.0); HEMOGLOBIN 9.2 g/dl (12.0-15.5)
[2021-10-05] MEDS: PANTOPRAZOLE SODIUM 40 MG in D5W 50 ML IV SCH ×5 (03:50→23:33)
[2021-10-05 04:00] VITALS: BP 138/87
[2021-10-05 06:04] LABS: BASO # 0.1 10^3/uL (0.0-0.2); BASO % 0.9 % (0.0-1.0); EOS # 0.3 10^3/uL (0.0-0.5); EOS % 4.4 % (0.0-3.0); HEMATOCRIT 31.3 % (36.0-47.0); HEMOGLOBIN 9.6 g/dl (12.0-15.5); LYMPH # 1.2 10^3/uL (1.5-5.0); LYMPH % 20.8 % (24.0-44.0); MEAN CORPUSCULAR HEMOGLOBIN 25.3 pg (27.0-33.0); MEAN CORPUSCULAR HGB CONC 30.7 g/dl (32.0-36.5); MEAN CORPUSCULAR VOLUME 82.6 fl (80.0-96.0); MONO # 0.6 10^3/uL (0.0-0.8); MONO % 11.2 % (2.0-8.0); NEUTROPHILS # 3.6 10^3/uL (1.5-8.5); NEUTROPHILS % 62.3 % (36.0-66.0); PLATELET COUNT, AUTOMATED 267 10^3/uL (150-450); RED BLOOD COUNT 3.79 10^6/uL (4.00-5.40); WHITE BLOOD COUNT 5.7 10^3/uL (4.0-10.0)
[2021-10-05 06:29] LABS: BLOOD UREA NITROGEN 9 MG/DL (7-18); CALCIUM LEVEL 8.7 MG/DL (8.8-10.2); CARBON DIOXIDE LEVEL 30 MEQ/L (21-32); CHLORIDE LEVEL 107 MEQ/L (98-107); CREATININE FOR GFR 0.67 MG/DL (0.55-1.30); GLOMERULAR FILTRATION RATE > 60.0 (>45); GLUCOSE, FASTING 91 MG/DL (70-100); POTASSIUM SERUM 3.7 MEQ/L (3.5-5.1); SODIUM LEVEL 143 MEQ/L (136-145)
[2021-10-05 07:49] VITALS: BP 122/69
[2021-10-05] MEDS: ACETAMINOPHEN TAB 650MG DOSE (2X325MG) PO PRN ×2 (08:45→16:38)
[2021-10-05 12:02] VITALS: BP 128/68
[2021-10-05 16:08] VITALS: BP 131/69
[2021-10-05 18:47] LABS: HEMATOCRIT 31.6 % (36.0-47.0); HEMOGLOBIN 9.7 g/dl (12.0-15.5)
[2021-10-05 19:45] VITALS: BP 135/59
[2021-10-06] VITALS: BP 126/64
[2021-10-06] MEDS: ACETAMINOPHEN TAB 650MG DOSE (2X325MG) PO PRN ×3 (00:16→17:16)
[2021-10-06 03:47] VITALS: BP 137/63
[2021-10-06] MEDS: PANTOPRAZOLE SODIUM 40 MG in D5W 50 ML IV SCH ×2 (04:15→09:23)
[2021-10-06 06:15] LABS: BASO # 0.1 10^3/uL (0.0-0.2); BASO % 0.9 % (0.0-1.0); EOS # 0.3 10^3/uL (0.0-0.5); EOS % 4.2 % (0.0-3.0); HEMATOCRIT 30.7 % (36.0-47.0); HEMOGLOBIN 9.3 g/dl (12.0-15.5); LYMPH # 1.3 10^3/uL (1.5-5.0); LYMPH % 17.4 % (24.0-44.0); MEAN CORPUSCULAR HEMOGLOBIN 25.5 pg (27.0-33.0); MEAN CORPUSCULAR HGB CONC 30.3 g/dl (32.0-36.5); MEAN CORPUSCULAR VOLUME 84.3 fl (80.0-96.0); MONO # 0.8 10^3/uL (0.0-0.8); MONO % 10.5 % (2.0-8.0); NEUTROPHILS % 66.6 % (36.0-66.0); PLATELET COUNT, AUTOMATED 251 10^3/uL (150-450); RED BLOOD COUNT 3.64 10^6/uL (4.00-5.40); WHITE BLOOD COUNT 7.5 10^3/uL (4.0-10.0)
[2021-10-06 06:20] LABS: BLOOD UREA NITROGEN 7 MG/DL (7-18); CALCIUM LEVEL 8.8 MG/DL (8.8-10.2); CARBON DIOXIDE LEVEL 27 MEQ/L (21-32); CHLORIDE LEVEL 109 MEQ/L (98-107); CREATININE FOR GFR 0.61 MG/DL (0.55-1.30); GLOMERULAR FILTRATION RATE > 60.0 (>45); GLUCOSE, FASTING 92 MG/DL (70-100); POTASSIUM SERUM 3.3 MEQ/L (3.5-5.1); SODIUM LEVEL 142 MEQ/L (136-145)
[2021-10-06] MEDS ORDERED: KCL 40MEQ IN D5/NS 1000ML 1,000 ML IV SCH (07:10)
[2021-10-06 07:32] VITALS: BP 139/70
[2021-10-06 11:40] VITALS: BP 118/80
[2021-10-06] MEDS ORDERED: LIDOCAINE 2% 100MG/5ML SDV (FOR ANES.) As Ordered ONE (12:21)
[2021-10-06] MEDS ORDERED: propofoL 200 MG/20 ML VIAL As Ordered ONE (12:21)
[2021-10-06] MEDS ORDERED: fentaNYL 100 MCG/2 ML INJECTION As Ordered ONE (12:22)
[2021-10-06 13:45] LABS: HEMATOCRIT 31.6 % (36.0-47.0); HEMOGLOBIN 9.6 g/dl (12.0-15.5)
[2021-10-06] MEDS: SUCRALFATE 1 GM TAB PO SCH ×3 (14:23→19:42)
[2021-10-06] MEDS: PANTOPRAZOLE 40MG TAB (PROTONIX) PO SCH ×2 (14:23→19:42)
[2021-10-06 15:20] VITALS: BP 120/64
[2021-10-06 18:33] LABS: HEMOGLOBIN 9.1 g/dl (12.0-15.5)
[2021-10-06 20:00] VITALS: BP 128/69
[2021-10-07 00:13] LABS: HEMATOCRIT 29.1 % (36.0-47.0); HEMOGLOBIN 8.9 g/dl (12.0-15.5)
[2021-10-07 04:00] VITALS: BP 157/83
[2021-10-07 05:41] LABS: BASO # 0.1 10^3/uL (0.0-0.2); BASO % 0.9 % (0.0-1.0); EOS # 0.3 10^3/uL (0.0-0.5); HEMOGLOBIN 9.2 g/dl (12.0-15.5); LYMPH # 1.2 10^3/uL (1.5-5.0); LYMPH % 16.4 % (24.0-44.0); MEAN CORPUSCULAR HEMOGLOBIN 25.4 pg (27.0-33.0); MEAN CORPUSCULAR HGB CONC 29.7 g/dl (32.0-36.5); MEAN CORPUSCULAR VOLUME 85.6 fl (80.0-96.0); MONO # 0.7 10^3/uL (0.0-0.8); MONO % 9.6 % (2.0-8.0); NEUTROPHILS # 4.8 10^3/uL (1.5-8.5); NEUTROPHILS % 68.7 % (36.0-66.0); PLATELET COUNT, AUTOMATED 257 10^3/uL (150-450); RED BLOOD COUNT 3.62 10^6/uL (4.00-5.40)
[2021-10-07 06:08] LABS: BLOOD UREA NITROGEN 7 MG/DL (7-18); CALCIUM LEVEL 8.3 MG/DL (8.8-10.2); CARBON DIOXIDE LEVEL 26 MEQ/L (21-32); CHLORIDE LEVEL 114 MEQ/L (98-107); CREATININE FOR GFR 0.55 MG/DL (0.55-1.30); GLOMERULAR FILTRATION RATE > 60.0 (>45); GLUCOSE, FASTING 91 MG/DL (70-100); POTASSIUM SERUM 3.4 MEQ/L (3.5-5.1); SODIUM LEVEL 144 MEQ/L (136-145)
[2021-10-07] MEDS ORDERED: PANT40TA29 PO (07:38)
[2021-10-07] MEDS ORDERED: SUCR1TA PO (07:38)
[2021-10-07] MEDS ORDERED: POTASSIUM CHLORIDE 10MEQ SR TABLET PO ONE (08:00)
[2021-10-07 08:30] VITALS: BP 147/70
[2021-10-07] MEDS: SUCRALFATE 1 GM TAB PO SCH (08:57)
[2021-10-07] MEDS: PANTOPRAZOLE 40MG TAB (PROTONIX) PO SCH (08:57)
[2021-10-07 12:20] LABS: HEMATOCRIT 32.6 % (36.0-47.0); HEMOGLOBIN 9.8 g/dl (12.0-15.5)
== END 2021-10-07 12:31 | disposition home or self-care (01) | DRG 378 ==
LOC: M ED 12:14 → M ED INP 16:37 → ENRESERV 17:19 → M PCU 18:03
PROVIDERS: ADMIT General Practice; ATTEND Internal Medicine Nephrology
PROC: 30233N1 Transfusion of Nonautologous Red Blood Cells into Peripheral Vein, Percutaneous Approach (ICD-10-PCS; 2021-10-03)
PROC: 0DBA8ZX Excision of Jejunum, Via Natural or Artificial Opening Endoscopic, Diagnostic (ICD-10-PCS; principal; 2021-10-06 12:20)
DX: K28.4 Chronic or unspecified gastrojejunal ulcer with hemorrhage (principal); I48.20 Chronic atrial fibrillation, unspecified; D62 Acute posthemorrhagic anemia; D68.32 Hemorrhagic disorder due to extrinsic circulating anticoagulants; K91.89 Other postprocedural complications and disorders of digestive system; M06.9 Rheumatoid arthritis, unspecified; K21.9 Gastro-esophageal reflux disease without esophagitis; E78.5 Hyperlipidemia, unspecified; L40.9 Psoriasis, unspecified; E55.9 Vitamin D deficiency, unspecified; E53.8 Deficiency of other specified B group vitamins; Z95.0 Presence of cardiac pacemaker; I49.5 Sick sinus syndrome; I95.1 Orthostatic hypotension; Z20.822 Contact with and (suspected) exposure to COVID-19; Z79.01 Long term (current) use of anticoagulants; Z79.899 Other long term (current) drug therapy; Z98.84 Bariatric surgery status

== ENCOUNTER → 2021-11-07 | Outpatient (CLI) | payer MEDICAID, MEDICARE ==
[~2021-11-07] MED LIST changes: +D31000TA2 PO; +FAMO20TA5 PO; +vitamin d3 PO
[2021-11-07 15:24] LABS: BASO # 0.1 10^3/uL (0.0-0.2); BASO % 0.9 % (0.0-1.0); EOS # 0.1 10^3/uL (0.0-0.5); EOS % 2.4 % (0.0-3.0); HEMATOCRIT 25.7 % (36.0-47.0); HEMOGLOBIN 7.5 g/dl (12.0-15.5); LYMPH # 1.4 10^3/uL (1.5-5.0); LYMPH % 23.6 % (24.0-44.0); MEAN CORPUSCULAR HEMOGLOBIN 24.8 pg (27.0-33.0); MEAN CORPUSCULAR HGB CONC 29.2 g/dl (32.0-36.5); MEAN CORPUSCULAR VOLUME 85.1 fl (80.0-96.0); MONO # 0.6 10^3/uL (0.0-0.8); MONO % 10.5 % (2.0-8.0); NEUTROPHILS # 3.6 10^3/uL (1.5-8.5); NEUTROPHILS % 62.3 % (36.0-66.0); PLATELET COUNT, AUTOMATED 358 10^3/uL (150-450); RED BLOOD COUNT 3.02 10^6/uL (4.00-5.40); WHITE BLOOD COUNT 5.7 10^3/uL (4.0-10.0)
[2021-11-07 16:00] LABS: ALBUMIN 3.2 GM/DL (3.2-5.2); ALT/SGPT 20 U/L (12-78); BILIRUBIN,TOTAL 0.3 MG/DL (0.2-1.0); BLOOD UREA NITROGEN 11 MG/DL (7-18); CALCIUM LEVEL 8.6 MG/DL (8.8-10.2); CARBON DIOXIDE LEVEL 28 MEQ/L (21-32); CHLORIDE LEVEL 110 MEQ/L (98-107); CREATININE FOR GFR 0.78 MG/DL (0.55-1.30); GLOMERULAR FILTRATION RATE > 60.0 (>45); GLUCOSE, FASTING 98 MG/DL (70-100); POTASSIUM SERUM 4.6 MEQ/L (3.5-5.1); SODIUM LEVEL 142 MEQ/L (136-145); TOTAL PROTEIN 6.5 GM/DL (6.4-8.2)
== END ==
LOC: M PLALAB 13:45
PROVIDERS: ATTEND Internal Medicine
DX: Z87.19 Personal history of other diseases of the digestive system (principal); Z98.84 Bariatric surgery status

== ENCOUNTER → 2021-11-07 | Outpatient (REF) | payer MEDICARE, MEDICAID | LOC: M SFHCPLAZ 13:36 | PROVIDERS: ATTEND Internal Medicine | DX: Z87.19 Personal history of other diseases of the digestive system (principal); Z98.84 Bariatric surgery status ==

== ENCOUNTER → 2021-11-10 | Outpatient (CLI) | payer MEDICARE, MEDICAID ==
[2021-11-10 10:30] LABS: HEMATOCRIT 27.6 % (36.0-47.0); MEAN CORPUSCULAR HEMOGLOBIN 24.5 pg (27.0-33.0); MEAN CORPUSCULAR VOLUME 84.7 fl (80.0-96.0); PLATELET COUNT, AUTOMATED 389 10^3/uL (150-450); RED BLOOD COUNT 3.26 10^6/uL (4.00-5.40); WHITE BLOOD COUNT 6.5 10^3/uL (4.0-10.0)
[2021-11-10 11:07] LABS: ALBUMIN 3.4 GM/DL (3.2-5.2); ALT/SGPT 18 U/L (12-78); BILIRUBIN,TOTAL 0.4 MG/DL (0.2-1.0); BLOOD UREA NITROGEN 9 MG/DL (7-18); CALCIUM LEVEL 8.7 MG/DL (8.8-10.2); CARBON DIOXIDE LEVEL 28 MEQ/L (21-32); CHLORIDE LEVEL 110 MEQ/L (98-107); CREATININE FOR GFR 0.66 MG/DL (0.55-1.30); GLOMERULAR FILTRATION RATE > 60.0 (>45); GLUCOSE, FASTING 84 MG/DL (70-100); IRON (FE) 18 UG/DL (50-170); PERCENT SATURATION 3.7 % (13.2-45.0); POTASSIUM SERUM 4.6 MEQ/L (3.5-5.1); SODIUM LEVEL 141 MEQ/L (136-145); TOTAL IRON BINDING CAPACITY 485 UG/DL (250-450); TOTAL PROTEIN 6.4 GM/DL (6.4-8.2)
== END ==
LOC: M LAB 09:55
PROVIDERS: ATTEND Nurse Practitioner Adult Health
DX: D50.9 Iron deficiency anemia, unspecified (principal)

== ENCOUNTER 2021-11-11 09:48 | Outpatient (CLI) | payer MEDICARE ==
[~2021-11-11] VITALS: Ht 167.6 cm; Wt 56.8 kg
[2021-11-11 09:55] VITALS: BP 148/70
[2021-11-11 12:00] VITALS: BP 143/79
[2021-11-11 13:00] VITALS: BP 146/69
[2021-11-11 13:55] VITALS: BP 168/76
[2021-11-11 15:00] VITALS: BP 156/85
== END 2021-11-11 15:20 | disposition home or self-care (01) ==
LOC: M INFU 09:48
PROVIDERS: ATTEND Internal Medicine
DX: D50.9 Iron deficiency anemia, unspecified (principal)
CPT/HCPCS: 36430; 86850; 86900; 86901; 86920; P9016

== ENCOUNTER → 2022-01-06 | Outpatient (CLI) | payer MEDICAID, MEDICARE ==
[~2022-01-06] MED LIST changes: -D31000TA2 PO; +VITA100093 PO
== END ==
LOC: M LABSMTC 10:08
PROVIDERS: ATTEND Internal Medicine Cardiovascular Disease
DX: Z20.822 Contact with and (suspected) exposure to COVID-19 (principal)

== ENCOUNTER → 2022-01-30 | Outpatient (CLI) | payer MEDICARE, MEDICAID | LOC: M LABSMTC 11:39 | PROVIDERS: ATTEND Nurse Practitioner Family | DX: Z11.52 Encounter for screening for COVID-19 (principal) ==

== ENCOUNTER → 2022-05-03 | Outpatient (CLI) | payer MEDICARE, MEDICAID | LOC: M WHC 09:48 | PROVIDERS: ATTEND Nurse Practitioner Adult Health | DX: Z12.31 Encounter for screening mammogram for malignant neoplasm of breast (principal) ==

== ENCOUNTER → 2022-06-02 | Outpatient (CLI) | payer MEDICARE, MEDICAID ==
[2022-06-02 12:00] LABS: HEMATOCRIT 44.3 % (36.0-47.0); HEMOGLOBIN 13.9 g/dl (12.0-15.5); MEAN CORPUSCULAR HEMOGLOBIN 31.5 pg (27.0-33.0); MEAN CORPUSCULAR HGB CONC 31.4 g/dl (32.0-36.5); MEAN CORPUSCULAR VOLUME 100.5 fl (80.0-96.0); PLATELET COUNT, AUTOMATED 259 10^3/uL (150-450); RED BLOOD COUNT 4.41 10^6/uL (4.00-5.40); WHITE BLOOD COUNT 6.4 10^3/uL (4.0-10.0)
[2022-06-02 12:37] LABS: ALBUMIN 3.9 GM/DL (3.2-5.2); ALT/SGPT 28 U/L (12-78); BILIRUBIN,TOTAL 0.6 MG/DL (0.2-1.0); BLOOD UREA NITROGEN 13 MG/DL (7-18); CALCIUM LEVEL 9.9 MG/DL (8.8-10.2); CARBON DIOXIDE LEVEL 28 MEQ/L (21-32); CHLORIDE LEVEL 109 MEQ/L (98-107); CREATININE FOR GFR 0.87 MG/DL (0.55-1.30); GLOMERULAR FILTRATION RATE > 60.0 (>45); GLUCOSE, FASTING 104 MG/DL (70-100); IRON (FE) 150 UG/DL (50-170); PERCENT SATURATION 40.3 % (13.2-45.0); SODIUM LEVEL 141 MEQ/L (136-145); TOTAL IRON BINDING CAPACITY 372 UG/DL (250-450); TOTAL PROTEIN 7.5 GM/DL (6.4-8.2)
[2022-06-02 12:38] LABS: VITAMIN B12 LEVEL 685 PG/ML (247-911)
== END ==
LOC: M PLALAB 09:49
PROVIDERS: ATTEND Nurse Practitioner Adult Health
DX: E55.9 Vitamin D deficiency, unspecified (principal); D50.9 Iron deficiency anemia, unspecified; L40.50 Arthropathic psoriasis, unspecified; Z98.84 Bariatric surgery status

== ENCOUNTER → 2022-12-15 | Outpatient (CLI) | payer MEDICARE, MEDICAID | LOC: M RAD 14:23 | PROVIDERS: ATTEND Internal Medicine | DX: M17.11 Unilateral primary osteoarthritis, right knee (principal) ==

== ENCOUNTER → 2023-02-18 | Outpatient (CLI) | payer MEDICAID, MEDICARE ==
[~2023-02-18] MED LIST changes: +FLUT50SP17 NARES; -FLUTISP NARES
[2023-02-18 09:10] LABS: HEMATOCRIT 40.7 % (36.0-47.0); HEMOGLOBIN 12.8 g/dl (12.0-15.5); MEAN CORPUSCULAR HEMOGLOBIN 32.8 pg (27.0-33.0); MEAN CORPUSCULAR HGB CONC 31.4 g/dl (32.0-36.5); MEAN CORPUSCULAR VOLUME 104.4 fl (80.0-96.0); PLATELET COUNT, AUTOMATED 249 10^3/uL (150-450); WHITE BLOOD COUNT 6.7 10^3/uL (4.0-10.0)
[2023-02-18 09:40] LABS: ALBUMIN 3.7 G/DL (3.2-5.2); ALKALINE PHOSPHATASE 102 U/L (46-116); ALT/SGPT 29 U/L (7.0-40); AST/SGOT 24 U/L (<34); BILIRUBIN,TOTAL 0.6 MG/DL (0.3-1.2); BLOOD UREA NITROGEN 14 MG/DL (9-23); CALCIUM LEVEL 9.2 MG/DL (8.3-10.6); CARBON DIOXIDE LEVEL 27 MMOL/L (20-31); CHLORIDE LEVEL 109 MMOL/L (98-107); CHOLESTEROL LEVEL 132 MG/DL (<200); CHOLESTEROL RISK RATIO 1.79 (<5); CREATININE FOR GFR 0.87 MG/DL (0.55-1.30); GLOMERULAR FILTRATION RATE > 60.0 (>39); GLUCOSE, FASTING 101 MG/DL (74-106); HDL CHOLESTEROL 73.7 MG/DL (>40); IRON (FE) 81 UG/DL (50-170); LDL CHOLESTEROL 42.9 MG/DL (<100); NON-HDL-C 58.3 MG/DL; PERCENT SATURATION 24.5 % (13.2-45.0); POTASSIUM SERUM 5.1 MMOL/L (3.5-5.1); SODIUM LEVEL 141 MMOL/L (136-145); TOTAL IRON BINDING CAPACITY 331 UG/DL (250-425); TOTAL PROTEIN 6.5 G/DL (5.7-8.2); TRIGLYCERIDES LEVEL 77 MG/DL (<150)
[2023-02-18 09:41] LABS: FERRITIN 72.2 NG/ML (7.3-270.7); THYROID STIMULATING HORMONE 2.614 uIU/ML (0.55-4.78); TOTAL 25(OH) VITAMIN D 26.3 NG/ML (20.0-100.0)
[2023-02-18 09:42] LABS: VITAMIN B12 LEVEL 459 PG/ML (211-911)
== END ==
LOC: M LAB 08:34
PROVIDERS: ATTEND Nurse Practitioner Adult Health
DX: Z13.220 Encounter for screening for lipoid disorders (principal); D50.9 Iron deficiency anemia, unspecified; Z13.29 Encounter for screening for other suspected endocrine disorder; E55.9 Vitamin D deficiency, unspecified; E78.00 Pure hypercholesterolemia, unspecified; E07.9 Disorder of thyroid, unspecified

== ENCOUNTER → 2023-02-26 | Outpatient (CLI) | payer MEDICARE | LOC: M WHC 10:14 | PROVIDERS: ATTEND Nurse Practitioner Adult Health | DX: Z13.820 Encounter for screening for osteoporosis (principal); M81.8 Other osteoporosis without current pathological fracture; M85.88 Other specified disorders of bone density and structure, other site ==

== ENCOUNTER → 2023-10-11 | Outpatient (CLI) | payer MEDICARE, MEDICAID ==
[~2023-10-11] MED LIST changes: +BIOT5CAP8 PO; -FLUT50SP17 NARES; +FLUTISP NARES; -HYDR200T3 PO; +HYDR200T46 PO
== END ==
LOC: M WHC 10:03
PROVIDERS: ATTEND Nurse Practitioner Adult Health
DX: Z12.31 Encounter for screening mammogram for malignant neoplasm of breast (principal)

== ENCOUNTER → 2025-05-25 | Outpatient (CLI) | payer MEDICARE, MEDICAID ==
[2025-05-25 13:09] LABS: ALT/SGPT 23.0 U/L (7.0-40); AST/SGOT 26.0 U/L (<34); CALCIUM LEVEL 9.1 MG/DL (8.3-10.6); CARBON DIOXIDE LEVEL 25.0 MMOL/L (20-31); CHLORIDE LEVEL 106.0 MMOL/L (98-107); CREATININE FOR GFR 1.03 MG/DL (0.55-1.30); GLOMERULAR FILTRATION RATE 57.8 (>39); POTASSIUM SERUM 6.7 MMOL/L (3.5-5.1); SODIUM LEVEL 141.0 MMOL/L (136-145)
== END ==
LOC: M LAB 10:09
PROVIDERS: ATTEND Nurse Practitioner Acute Care
DX: E87.5 Hyperkalemia (principal)

== ENCOUNTER → 2025-05-27 | Outpatient (CLI) | payer MEDICARE, MEDICAID ==
[2025-05-27 11:22] LABS: ALT/SGPT 24.0 U/L (7.0-40); AST/SGOT 24.0 U/L (<34); CALCIUM LEVEL 8.7 MG/DL (8.3-10.6); CARBON DIOXIDE LEVEL 25.0 MMOL/L (20-31); CHLORIDE LEVEL 107.0 MMOL/L (98-107); CREATININE FOR GFR 0.91 MG/DL (0.55-1.30); GLOMERULAR FILTRATION RATE 67.0 (>39); POTASSIUM SERUM 5.9 MMOL/L (3.5-5.1); SODIUM LEVEL 141.0 MMOL/L (136-145)
== END ==
LOC: M LAB 10:08
PROVIDERS: ATTEND Internal Medicine Cardiovascular Disease
DX: E87.5 Hyperkalemia (principal)

== ENCOUNTER → 2025-09-08 | Outpatient (REF) | payer OTHER, MEDICAID | LOC: M SFHCPLAZ 09:19 | PROVIDERS: ATTEND Nurse Practitioner Adult Health | DX: Z98.84 Bariatric surgery status (principal); Z13.29 Encounter for screening for other suspected endocrine disorder; Z13.220 Encounter for screening for lipoid disorders; E55.9 Vitamin D deficiency, unspecified; E87.5 Hyperkalemia; D50.9 Iron deficiency anemia, unspecified ==

== ENCOUNTER → 2025-10-20 | Outpatient (CLI) | payer MEDICARE, MEDICAID | LOC: M WHC 10:42 | PROVIDERS: ATTEND Nurse Practitioner Adult Health | DX: Z12.31 Encounter for screening mammogram for malignant neoplasm of breast (principal); M85.89 Other specified disorders of bone density and structure, multiple sites; R92.313 Mammographic fatty tissue density, bilateral breasts ==